=== PATIENT | male | born 1980 | race Caucasian/White ===

== ENCOUNTER 2017-10-05 21:41 | Emergency (ER) | END 2017-10-05 23:59 | disposition home or self-care (01) ==

== ENCOUNTER 2019-01-07 23:43 | Inpatient (IN) | payer OTHER ==
[~2019-01-07] VITALS: Ht 177.8 cm; Wt 64.6 kg
[~2019-01-07 23:43] MED LIST: AMOX500C2 PO; IBUP-1542 PO
[2019-01-08] VITALS (19 sets, daily range): BP systolic 93–111; BP diastolic 50–73; PULSE 75–95; RESP 13–20; Ht 177.8 cm; Wt 64.6 kg
[2019-01-08] MEDS ORDERED: morphine 4 MG/ML VIAL IV STA
[2019-01-08] MEDS ORDERED: ONDANSETRON 4 MG INJ IV STA
[2019-01-08] MEDS ORDERED: SOD CHLORIDE 0.9% 500 ML IV STA
[2019-01-08] MEDS ORDERED: SODIUM CHLORIDE 0.9% 1L BAG IV* STA (00:08)
[2019-01-08] MEDS ORDERED: PIPER-TAZO 3.375 GM IV (PMX) 100 ML IVPB STA (01:22)
[2019-01-08] MEDS ORDERED: VANCOMYCIN 1 GM (PMX) 250 ML IVPB STA (01:22)
[2019-01-08] MEDS ORDERED: HYDROmorphONE 1 MG/ML SYG IV STA (02:08)
[2019-01-08] MEDS ORDERED: HYDROmorphONE 1 MG/ML SYG ONE (02:09)
[2019-01-08] MEDS ORDERED: morphine 2 MG INJ IV PRN (03:00)
[2019-01-08] MEDS ORDERED: ONDANSETRON 4 MG INJ IV PRN ×3 (03:00→18:00)
--- NOTE | 2019-01-08 03:11 | HP ---
Date/Time of Note Date/Time of Note DATE: 01/08/19 TIME: 03:05 Assessment/Plan VTE Prophylaxis SCD applied (from Nsg): Yes Pharmacological prophylaxis: NA/contraindicated Pharm contraindication: low risk/ambulating Lines/Catheters IV Catheter Type (from Nrsg): Saline Lock Assessment/Plan Assessment/Plan 38 yo heroin addict presents with L hip abscess from intramuscular injection. #Left hip abscess - Will get CT pelvis to further characterize - Dr. Palafox consulted for surgical I&D. - IV vanco, zosyn - Followup blood cultures - NPO for possible surgery. - Patient reports ability to briskly climb 2 flights of stairs before his illness. No signs or symptoms of heart failure. He is medically optimized to proceed to surgery without further medical or cardiac workup. #Asthma - Albuterol prn #Heroin use - Patient is motivated to quit, social work consult after hip is addressed. DVT: SCDs GI: None Result Diagram: 01/08/19 0028 01/08/19 0028 HPI/ROS Admit Date/Time Admit Date/Time 08 January 2019 Hx of Present Illness Mr. Sabillon is an unfortunate 38 yo heroin addict who presents with left hip swelling and pain. He was in his usual state of health until about three weeks ago, when he was seen at the [facility] ED for bronchitis. He had been injecting heroin into his left gluteus for a few weeks prior and had noticed it was getting painful but declined to mention it. He was discharged with a course of amoxicillin for bronchitis of which he finished half the course. Over the past three weeks the hip grew more painful, swollen and it grew more difficult to walk. A few days prior to admission the patient used insulin syringes (which he uses for heroin) to aspirate pus from the abscess. He pulled out 150 cc. For the past three days that patient has been laying on the ground unable to walk due to pain; also with subjective fevers. He had an episode of fecal and urinary incontinence. He called an ambulance and came to the ED. In the ED he was afebrile, vitals normal. WBC 21.2, lactate 2.2. Otherwise labs normal . ROS He denies chills, night sweats, anorexia, weight loss, headache, dizziness, vertigo, dysphagia, cough, dyspnea, abdominal pain, diarrhea, constipation, dysuria, hematuria PMH/Family/Social Past Medical History Emphysema on albuterol inhaler Medications Current Medications Vancomycin HCl 250 ml @ 125 mls/hr ONCE STAT IVPB Last administered on 01/08/19at 02:33; Admin Dose 125 MLS/HR; Start 01/08/19 at 01:22; Stop 01/08/19 at 03:21 Coded Allergies: No Known Drug Allergies (Verified Allergy, Unknown, 10/05/17) Past Surgical History L hand surgery after trauma basilar skull fracture s/p repair Social History Alcohol Use: none Smoking Status: Current every day smoker (1-2 cigs per day ) Drug Use: heroin (Including intra-muscular injection. ) Exam/Review of Systems Vital Signs Vitals Vital Signs Date Temp Pulse Resp B/P (MAP) Pulse Ox O2 O2 Flow FiO2 Time Delivery Rate 01/08/19 98 20 109/68 98 Room Air 02:52 (82) 01/08/19 99.3 02:00 Exam Exam Gen: Well developed man appearing younger than stated age in considerable discomfort. Eyes: PERRL, no icterus HEENT: Moist mucous membranes, clear oropharynx Neck:Supple, no lymphadenopathy Card: Regular rate and rhythm, no murmurs Pulm: Clear to auscultation bilaterally, mild expiratory wheezing Abd: Soft, nontender, nondistended. No hepatosplenomegaly. Ext: L hip with very large erythematous, fluctuant, very tender region about 15x15 cm. There is a smaller region about 10x10 cm also with fluctuance and tenderness inferior, about on the L buttocks. R buttocks has an old crusted wound without fluctuance or tenderness. Skin: warm, dry, well perfused. : Good rectal tone. SHERIDAN STEWARD MD Jan 08, 2019 03:11
[2019-01-08] MEDS: SOD CHLORIDE 0.9% 1,000 ML IV SCH ×2 (03:27→15:54)
[2019-01-08] MEDS ORDERED: VANCOMYCIN IV PER PHARMACY XX SCH (03:30)
[2019-01-08] MEDS ORDERED: ALBUTEROL/IPRATROPIUM (NEB) 3 ML AMP HHN PRN (04:00)
[2019-01-08] MEDS: morphine 10 MG INJ IV PRN ×3 (05:47→13:57)
[2019-01-08] MEDS: PIPER-TAZO 3.375 GM IV (PMX) 100 ML IVPB SCH ×3 (05:48→20:37)
[2019-01-08] MEDS ORDERED: morphine 2 MG INJ IV STA (08:07)
--- NOTE | 2019-01-08 08:23 | CONS ---
Assessment/Plan Assessment/Plan Hospital Course (Demo Recall) This is a 38-year-old male with history of heroin abuse with a very large abscess over his left superior buttock starting to involve areas above the iliac crest. The patient clearly does need an irrigation debridement of this abscess. Currently there is no joint or bone involvement. I did speak to general surgery about this case and they will evaluate it as I believe the location of his abscess would be best treated by their expertise. We will be in further communication to determine the care of this patient. If the patient can tolerate a CT scan with and without contrast that may be helpful in further characterizing the abscess especially the depth. Patient should be kept n.p.o. Continue IV antibiotics vancomycin and Zosyn. Consultation Date/Type/Reason Admit Date/Time 08 January 2019 Date of Consultation: Jan 08, 2019 Reason for Consultation "Left Hip abscess" Date/Time of Note DATE: 01/08/19 TIME: 08:13 Hx of Present Illness This is a 38-year-old male with history of IV drug abuse. He presented to the emergency department at [facility] early this morning for increasing pain in his left buttock and side. He was found to have a very large abscess. Patient does admit to injecting heroin into his gluteus and flank. The symptoms started about 2 weeks ago and has significantly worsened in the last 5 to 6 days. He has had fevers and chills. Denies numbness and tingling. Denies any bowel or bladder incontinence. Denies any groin pain or pain in his hip with motion of his leg. The pain is isolated right over the abscess. The patient was started on vancomycin and Zosyn. Patient denies shortness of breath, chest pain, nausea/vomiting, constipation, diarrhea, numbness, and tingling. Past Medical History Anxiety/depression Home Meds Active Scripts Amoxicillin* (Amoxicillin*) 500 Mg Cap, 500 MG PO BID for 7 Days, CAP Prov:MARLEN MANDUJANO 10/05/17 Ibuprofen* (Motrin*) 600 Mg Tab, 600 MG PO Q6, #30 TAB Prov:MARLEN MANDUJANO 10/05/17 Medications Current Medications Sodium Chloride 1,000 ml @ 75 mls/hr [id number] IV Last administered on 01/08/19at 03:27; Admin Dose 75 MLS/HR; Start 01/08/19 at 02:34 IV Flush (NS 3 ml) 3 ml PER PROTOCOL IV ; Start 01/08/19 at 03:00 Ondansetron HCl (Zofran Inj) 4 mg Q6H PRN IV NAUSEA/VOMITING; Start 01/08/19 at 03:00 Morphine Sulfate (morphine) 2 mg Q4H PRN IV .SEVERE PAIN 7-10 Last administered on 01/08/19at 04:19; Admin Dose 2 MG; Start 01/08/19 at 03:00 Piperacillin Sod/ Tazobactam Sod 100 ml @ 200 mls/hr Q6 IVPB Last administered on 01/08/19at 05:48; Admin Dose 200 MLS/HR; Start 01/08/19 at 06:00 Vancomycin HCl (Vanco Iv Per Pharmacy) VANCOMYCIN PER PHARMACY PER PROTOCOL XX ; Start 01/08/19 at 03:30 Albuterol/ Ipratropium (Duoneb) 3 ml Q4H RESP THERAPY PRN HHN SHORTNESS OF B REATH; Start 01/08/19 at 04:00 Vancomycin HCl 1.25 gm/Sodium Chloride 250 ml @ 83.333 mls/ hr Q12H IVPB ; Start 01/08/19 at 14:00 Morphine Sulfate (morphine) 6 mg Q4H PRN IV SEVERE PAIN LEVEL 7-10 Last administered on 01/08/19at 05:47; Admin Dose 6 MG; Start 01/08/19 at 05:30 Allergies: Coded Allergies: No Known Drug Allergies (Verified Allergy, Unknown, 10/05/17) Past Surgical History Hand surgery 2004 Social History Alcohol Use: none Smoking Status: Current every day smoker (1-2 cigs per day ) Drug Use: heroin (Including intra-muscular injection. ) Exam/Review of Systems Exam Vitals Vital Signs Date Temp Pulse Resp B/P (MAP) Pulse Ox O2 O2 Flow FiO2 Time Delivery Rate 01/08/19 99.2 90 18 105/58 94 08:00 (74) 01/08/19 Room Air 02:52 Intake and Output 01/07/19 01/07/19 01/08/19 1515:00 23:00 07:00 IntakeIntake Total 463 ml OutputOutput Total 300 ml BalanceBalance 163 ml Exam General: Awake, alert, patient in moderate distress secondary to pain. Patient is cooperative. Heart: regular rhythm Lungs: breathing comfortably, no tachypnea or dyspnea Musculoskeletal: Over the left superior buttock going into the flank the patient has a very large subcutaneous and likely also intramuscular abscess. It is at least 15 cm. T here is no active drainage however there are purulent bulla over the abscess. There is significant erythema, warmth, tenderness to palpation. There is no hip or groin pain with range of motion of the hip. Remainder of the extremity shows no other signs of infection. Sensation intact to light touch in a sural, saphenous, deep peroneal, superficial peroneal, medial and lateral plantar nerve distribution. Motor is intact, patient able to dorsiflex and plantarflex ankle and extend and flex great toe. Dorsalis Pedis pulse +2, Brisk capillary refill. Compartments are soft. Calves non-tender to palpation bilaterally. Results Result Diagram: 01/08/19 0028 01/08/19 0028 Results 24hrs Laboratory Tests Test 01/08/19 00:20 01/08/19 00:28 01/08/19 02:20 01/08/19 04:20 POC Venous Lactate 2.2 *H White Blood Count 21.2 H Red Blood Count 4.84 Hemoglobin 14.8 Hematocrit 42.4 Mean Corpuscular Volume 87.6 Mean Corpuscular 30.6 Hemoglobin Mean Corpuscular 34.9 Hemoglobin Concent Red Cell Distribution 12.0 Width Platelet Count 453 H Mean Platelet Volume 8.3 Immature Granulocytes % 0.700 H Neutrophils % 86.9 H Lymphocytes % 5.6 L Monocytes % 6.5 Eosinophils % 0.0 Basophils % 0.3 Nucleated Red Blood 0.0 Cells % Immature Granulocytes # 0.140 H Neutrophils # 18.4 H Lymphocytes # 1.2 Monocytes # 1.4 H Eosinophils # 0.0 Basophils # 0.1 Nucleated Red Blood 0.0 Cells # Prothrombin Time 15.1 H Prothrombin Time Ratio 1.2 INR International 1.18 Normalized Ratio Activated 33.5 Partial Thromboplast Time Sodium Level 134 L Potassium Level 4.1 Chloride Level 90 L Carbon Dioxide Level 31 Anion Gap 13 Blood Urea Nitrogen 9 Creatinine 0.75 Est Glomerular Filtrat > 60 Rate mL/min Glucose Level 124 Calcium Level 9.7 Total Bilirubin 0.9 Direct Bilirubin 0.00 Indirect Bilirubin 0.9 Aspartate Amino 40 Transf (AST/SGOT) Alanine 37 Aminotransferase (ALT/SG PT) Alkaline Phosphatase 182 H Troponin I < 0.012 Total Protein 8.5 H Albumin 4.1 Globulin 4.40 H Albumin/Globulin Ratio 0.93 Lipase 59 Lactic Acid Level 1.0 2.6 *H Imaging Imaging 2 views of the left hip were obtained in the emergency department. Demonstrate significant soft tissue swelling of the left buttock with subcutaneous air at the level of iliac crest. No acute bony abnormality. No fracture. Medications Medication Current Medications Sodium Chloride 1,000 ml @ 75 mls/hr [id number] IV Last administered on 01/08/19at 03:27; Admin Dose 75 MLS/HR; Start 01/08/19 at 02:34 IV Flush (NS 3 ml) 3 ml PER PROTOCOL IV ; Start 01/08/19 at 03:00 Ondansetron HCl (Zofran Inj) 4 mg Q6H PRN IV NAUSEA/VOMITING; Start 01/08/19 at 03:00 Morphine Sulfate (morphine) 2 mg Q4H PRN IV .SEVERE PAIN 7-10 Last administered on 01/08/19at 04:19; Admin Dose 2 MG; Start 01/08/19 at 03:00 Piperacillin Sod/ Tazobactam Sod 100 ml @ 200 mls/hr Q6 IVPB Last administered on 01/08/19at 05:48; Admin Dose 200 MLS/HR; Start 01/08/19 at 06:00 Vancomycin HCl (Vanco Iv Per Pharmacy) VANCOMYCIN PER PHARMACY PER PROTOCOL XX ; Start 01/08/19 at 03:30 Albuterol/ Ipratropium (Duoneb) 3 ml Q4H RESP THERAPY PRN HHN SHORTNESS OF BREATH; Start 01/08/19 at 04:00 Vancomycin HCl 1.25 gm/Sodium Chloride 250 ml @ 83.333 mls/ hr Q12H IVPB ; Start 01/08/19 at 14:00 Morphine Sulfate (morphine) 6 mg Q4H PRN IV SEVERE PAIN LEVEL 7-10 Last administered on 01/08/19at 05:47; Admin Dose 6 MG; Start 01/08/19 at 05:30 EDU SILVA MD Jan 08, 2019 08:23
[2019-01-08] MEDS ORDERED: SOD CHLORIDE 0.9% 100 ML ONE (12:54)
[2019-01-08] MEDS ORDERED: IOHEXOL 300MG/ML 150 ML BTL ONE (12:54)
[2019-01-08] MEDS: VANCOMYCIN HCL 1.25 GM in SOD CHLORIDE 0.9% 250 ML IVPB SCH (13:59)
--- NOTE | 2019-01-08 14:35 | PN ---
Date/Time of Note Date/Time of Note DATE: 01/08/19 TIME: 14:34 Assessment/Plan VTE Prophylaxis Risk score (from Ns)>0 risk: 2 SCD applied (from Ns): Yes Pharmacological prophylaxis: NA/contraindicated Pharm contraindication: surgical contra Lines/Catheters IV [facility]ter Type (from [facility]): Peripheral IV Assessment/Plan Hospital Course 38 yo heroin addict presents with L hip abscess from intramuscular injection. #Left hip abscess - Will get CT pelvis to further characterize - Dr. Palafox and general surgery consulted for surgical I&D. - IV vanco, zosyn - Followup blood cultures - NPO for possible surgery. - Patient reports ability to briskly climb 2 flights of stairs before his illne ss. No signs or symptoms of heart failure. He is medically optimized to proceed to surgery without further medical or cardiac workup. #Asthma - Albuterol prn #Heroin use - Patient is motivated to quit, social work consult appreciated, patient will be placed in a drug rehab program after DC DVT: SCDs GI: None Result Diagram: 01/08/19 0028 01/08/19 0028 Results 24hrs Laboratory Tests Test 01/08/19 00:20 01/08/19 00:28 01/08/19 02:20 01/08/19 04:20 POC Venous Lactate 2.2 *H White Blood Count 21.2 H Red Blood Count 4.84 Hemoglobin 14.8 Hematocrit 42.4 Mean Corpuscular Volume 87.6 Mean Corpuscular 30.6 Hemoglobin Mean Corpuscular 34.9 Hemoglobin Concent Red Cell Distribution 12.0 Width Platelet Count 453 H Mean Platelet Volume 8.3 Immature Granulocytes % 0.700 H Neutrophils % 86.9 H Lymphocytes % 5.6 L Monocytes % 6.5 Eosinophils % 0.0 Basophils % 0.3 Nucleated Red Blood 0.0 Cells % Immature Granulocytes # 0.140 H Neutrophils # 18.4 H Lymphocytes # 1.2 Monocytes # 1.4 H Eosinophils # 0.0 Basophils # 0.1 Nucleated Red Blood 0.0 Cells # Prothrombin Time 15.1 H Prothrombin Time Ratio 1.2 INR International 1.18 Normalized Ratio Activated 33.5 Partial Thromboplast Time Sodium Level 134 L Potassium Level 4.1 Chloride Level 90 L Carbon Dioxide Level 31 Anion Gap 13 Blood Urea Nitrogen 9 Creatinine 0.75 Est Glomerular Filtrat > 60 Rate mL/min Glucose Level 124 Calcium Level 9.7 Total Bilirubin 0.9 Direct Bilirubin 0.00 Indirect Bilirubin 0.9 Aspartate Amino 40 Transf (AST/SGOT) Alanine 37 Aminotransferase (ALT/SG PT) Alkaline Phosphatase 182 H Troponin I < 0.012 Total Protein 8.5 H Albumin 4.1 Globulin 4.40 H Albumin/Globulin Ratio 0.93 Lipase 59 Lactic Acid Level 1.0 2.6 *H Subjective 24 Hr Interval Summary Constitutional: no complaints Exam/Review of Systems Exam Vitals Vital Signs Date Temp Pulse Resp B/P (MAP) Pulse Ox O2 O2 Flow FiO2 Time Delivery Rate 01/08/19 99.2 90 18 105/58 94 08:00 (74) 01/08/19 Room Air 02:52 Intake and Output 01/07/19 01/07/19 01/08/19 1515:00 23:00 07:00 IntakeIntake Total 463 ml OutputOutput Total 300 ml BalanceBalance 163 ml Constitutional: alert, oriented Respiratory: clear to auscultation Cardiovascular: regular rate and rhythm Gastrointestinal: soft; No distended Musculoskeletal: nl extremities to inspection Results Results 24hrs Laboratory Tests Test 01/08/19 00:20 01/08/19 00:28 01/08/19 02:20 01/08/19 04:20 POC Venous Lactate 2.2 *H White Blood Count 21.2 H Red Blood Count 4.84 Hemoglobin 14.8 Hematocrit 42.4 Mean Corpuscular Volume 87.6 Mean Corpuscular 30.6 Hemoglobin Mean Corpuscular 34.9 Hemoglobin Concent Red Cell Distribution 12.0 Width Platelet Count 453 H Mean Platelet Volume 8.3 Immature Granulocytes % 0.700 H Neutrophils % 86.9 H Lymphocytes % 5.6 L Monocytes % 6.5 Eosinophils % 0.0 Basophils % 0.3 Nucleated Red Blood 0.0 Cells % Immature Granulocytes # 0.140 H Neutrophils # 18.4 H Lymphocytes # 1.2 Monocytes # 1.4 H Eosinophils # 0.0 Basophils # 0.1 Nucleated Red Blood 0.0 Cells # Prothrombin Time 15.1 H Prothrombin Time Ratio 1.2 INR International 1.18 Normalized Ratio Activated 33.5 Partial Thromboplast Time Sodium Level 134 L Potassium Level 4.1 Chloride Level 90 L Carbon Dioxide Level 31 Anion Gap 13 Blood Urea Nitrogen 9 Creatinine 0.75 Est Glomerular Filtrat > 60 Rate mL/min Glucose Level 124 Calcium Level 9.7 Total Bilirubin 0.9 Direct Bilirubin 0.00 Indirect Bilirubin 0.9 Aspartate Amino 40 Transf (AST/SGOT) Alanine 37 Aminotransferase (ALT/SG PT) Alkaline Phosphatase 182 H Troponin I < 0.012 Total Protein 8.5 H Albumin 4.1 Globulin 4.40 H Albumin/Globulin Ratio 0.93 Lipase 59 Lactic Acid Level 1.0 2.6 *H Medications Medication Current Medications Sodium Chloride 1,000 ml @ 75 mls/hr [id number] IV Last administered on 01/08/19at 03:27; Admin Dose 75 MLS/HR; Start 01/08/19 at 02:34 IV Flush (NS 3 ml) 3 ml PER PROTOCOL IV ; Start 01/08/19 at 03:00 Ondansetron HCl (Zofran Inj) 4 mg Q6H PRN IV NAUSEA/VOMITING; Start 01/08/19 at 03:00 Morphine Sulfate (morphine) 2 mg Q4H PRN IV .SEVERE PAIN 7-10 Last administered on 01/08/19at 04:19; Admin Dose 2 MG; Start 01/08/19 at 03:00 Piperacillin Sod/ Tazobactam Sod 100 ml @ 200 mls/hr Q6 IVPB Last administered on 01/08/19at 13:09; Admin Dose 200 MLS/HR; Start 01/08/19 at 06:00 Vancomycin HCl (Vanco Iv Per Pharmacy) VANCOMYCIN PER PHARMACY PER PROTOCOL XX ; Start 01/08/19 at 03:30 Albuterol/ Ipratropium (Duoneb) 3 ml Q4H RESP THERAPY PRN HHN SHORTNESS OF BREATH; Start 01/08/19 at 04:00 Vancomycin HCl 1.25 gm/Sodium Chloride 250 ml @ 83.333 mls/ hr Q12H IVPB Last administered on 01/08/19at 13:59; Admin Dose 83.333 MLS/HR; Start 01/08/19 at 14:00 Morphine Sulfate (morphine) 6 mg Q4H PRN IV SEVERE PAIN LEVEL 7-10 Last administered on 01/08/19at 13:57; Admin Dose 6 MG; Start 01/08/19 at 05:30 Miscellaneous Information (*Rx Drug Level Order Reminder*) 1 1300 ONCE XX ; Start 01/09/19 at 13:00; Stop 01/09/19 at 13:01 TOM BAUTISTA Jan 08, 2019 14:35
--- NOTE | 2019-01-08 16:55 | CONS ---
Assessment/Plan Assessment/Plan Assessment/Plan (Daily) Left gluteal/buttock abscess Will need I&D in OR under IV sedation All benefits, risks, alternatives discussed in detail. All questions answered. The patient elects to proceed. Consultation Date/Type/Reason Admit Date/Time 08 January 2019 Date/Time of Note DATE: 01/08/19 TIME: 16:53 Hx of Present Illness The patient is a 38-year-old male who did intramuscular injection of heroin approximately 3 weeks ago. He likely is a dirty needle. He started developing pain and discomfort soon after. The pain and discomfort got worse over the last 4 days he could not walk due to the infection. He has fevers and chills. He has some nausea. Homeless and finally called an ambulance was brought to the ER. His work-up was consistent with a left buttock abscess. Past Medical History Medical History: other (IV drug abuse) Home Meds Active Scripts Amoxicillin* (Amoxicillin*) 500 Mg Cap, 500 MG PO BID for 7 Days, CAP Prov:MARLEN MANDUJANO 10/05/17 Ibuprofen* (Motrin*) 600 Mg Tab, 600 MG PO Q6, #30 TAB Prov:MARLEN MANDUJANO 10/05/17 Medications Current Medications Sodium Chloride 1,000 ml @ 75 mls/hr [id number] IV Last administered on 01/08/19at 03:27; Admin Dose 75 MLS/HR; Start 01/08/19 at 02:34 IV Flush (NS 3 ml) 3 ml PER PROTOCOL IV ; Start 01/08/19 at 03:00 Ondansetron HCl (Zofran Inj) 4 mg Q6H PRN IV NAUSEA/VOMITING; Start 01/08/19 at 03:00 Morphine Sulfate (morphine) 2 mg Q4H PRN IV .SEVERE PAIN 7-10 Last administered on 01/08/19at 04:19; Admin Dose 2 MG; Start 01/08/19 at 03:00 Piperacillin Sod/ Tazobactam Sod 100 ml @ 200 mls/hr Q6 IVPB Last administered on 01/08/19at 13:09; Admin Dose 200 MLS/HR; Start 01/08/19 at 06:00 Vancomycin HCl (Vanco Iv Per Pharmacy) VANCOMYCIN PER PHARMACY PER PROTOCOL XX ; Start 01/08/19 at 03:30 Albuterol/ Ipratropium (Duoneb) 3 ml Q4H RESP THERAPY PRN HHN SHORTNESS OF BREATH; Start 01/08/19 at 04:00 Vancomycin HCl 1.25 gm/Sodium Chloride 250 ml @ 83.333 mls/ hr Q12H IVPB Last administered on 01/08/19at 13:59; Admin Dose 83.333 MLS/HR; Start 01/08/19 at 14:00 Morphine Sulfate (morphine) 6 mg Q4H PRN IV SEVERE PAIN LEVEL 7-10 Last administered on 01/08/19at 13:57; Admin Dose 6 MG; Start 01/08/19 at 05:30 Miscellaneous Information (*Rx Drug Level Order Reminder*) 1 1300 ONCE XX ; Start 01/09/19 at 13:00; Stop 01/09/19 at 13:01 Allergies: Coded Allergies: No Known Drug Allergies (Verified Allergy, Unknown, 10/05/17) Past Surgical History Past Surgical Hx: other (Left hand surgery) Social History Alcohol Use: none Smoking Status: Current every day smoker (1-2 cigs per day ) Drug Use: heroin (Including intra-muscular injection. ), other (Methamphetamine twice a week) Exam/Review of Systems Exam Vitals Vital Signs Date Temp Pulse Resp B/P (MAP) Pulse Ox O2 O2 Flow FiO2 Time Delivery Rate 01/08/19 99.2 80 16 98/60 (73) 92 14:50 01/08/19 Room Air 02:52 Intake and Output 01/07/19 01/07/19 01/08/19 1515:00 23:00 07:00 IntakeIntake Total 463 ml OutputOutput Total 300 ml BalanceBalance 163 ml Constitutional: alert, oriented, well developed Psych: no complaints Head: normocephalic, atraumatic ENMT: nl external ears & nose Neck: supple Respiratory: clear to auscultation, normal air movement Cardiovascular: regular rate and rhythm Gastrointestinal: soft, nl liver, spleen, non-tender Musculoskeletal: nl extremities to inspection, nl gait and stance Extremities: normal pulses Neurological: [employer] II-XII intact, nl mental status Skin: other (Tender, erythematous, indurated area to left buttock/flank consistent with abscess) Lymph: nl lymph nodes Results Result Diagram: 01/08/19 0028 01/08/19 0028 Results 24hrs Laboratory Tests Test 01/08/19 00:20 01/08/19 00:28 01/08/19 02:20 01/08/19 04:20 POC Venous Lactate 2.2 *H White Blood Count 21.2 H Red Blood Count 4.84 Hemoglobin 14.8 Hematocrit 42.4 Mean Corpuscular Volume 87.6 Mean Corpuscular 30.6 Hemoglobin Mean Corpuscular 34.9 Hemoglobin Concent Red Cell Distribution 12.0 Width Platelet Count 453 H Mean Platelet Volume 8.3 Immature Granulocytes % 0.700 H Neutrophils % 86.9 H Lymphocytes % 5.6 L Monocytes % 6.5 Eosinophils % 0.0 Basophils % 0.3 Nucleated Red Blood 0.0 Cells % Immature Granulocytes # 0.140 H Neutrophils # 18.4 H Lymphocytes # 1.2 Monocytes # 1.4 H Eosinophils # 0.0 Basophils # 0.1 Nucleated Red Blood 0.0 Cells # Prothrombin Time 15.1 H Prothrombin Time Ratio 1.2 INR International 1.18 Normalized Ratio Activated 33.5 Partial Thromboplast Time Sodium Level 134 L Potassium Level 4.1 Chloride Level 90 L Carbon Dioxide Level 31 Anion Gap 13 Blood Urea Nitrogen 9 Creatinine 0.75 Est Glomerular Filtrat > 60 Rate mL/min Glucose Level 124 Calcium Level 9.7 Total Bilirubin 0.9 Direct Bilirubin 0.00 Indirect Bilirubin 0.9 Aspartate Amino 40 Transf (AST/SGOT) Alanine 37 Aminotransferase (ALT/SG PT) Alkaline Phosphatase 182 H Troponin I < 0.012 Total Protein 8.5 H Albumin 4.1 Globulin 4.40 H Albumin/Globulin Ratio 0.93 Lipase 59 Lactic Acid Level 1.0 2.6 *H Imaging Imaging Patient: DALLAS BUTLER : 1980 Age: 38 Sex: M MR #: [id number] DOS: 01/08/19 0305 Ordering MD: SHERIDAN STEWARD MD Location: [facility] Room/Bed: [facility] PROCEDURE: CT Abdomen and Pelvis with contrast. CLINICAL INDICATION: Left hip abscess TECHNIQUE: CT scan of the abdomen and pelvis with contrast was performed on a multi-detector high-resolution CT scanner. The patient was scanned following the uncomplicated intravenous administration of 90 cc of Omnipaque-300 IV contrast. Coronal and sagittal reformatted images were obtained from the axial source images. DICOM images are available. CTDI equals 6.76 mGy, and DLP equals 474.78 mGy-cm. One or more of the following dose reduction techniques were used: - Automated exposure control. - Adjustment of the mA and/or kV according to patient size. - Use of iterative reconstruction technique. COMPARISON: None. FINDINGS: Lower thorax: Patchy ground-glass opacities of the lateral right lower lung may represent atelectasis versus small area of infiltrate. Small focus of infiltrate seen in the left lower lung. Liver: Normal. Patent portal vein. Biliary: Normal gallbladder. No biliary dilatation. Pancreas: Normal. Spleen: Normal. Adrenal Glands: Normal. Genitourinary: No hydronephrosis or nephrolithiasis. Bladder is moderately distended, otherwise unremarkable. Gastrointestinal: Stomach is decompressed. Gaseous distension of the colon as well as multiple small bowel loops likely suggestive of ileus. No evidence of bowel obstruction. Lymph nodes: No adenopathy. Vascular: Normal-caliber of the abdominal aorta. Peritoneum/mesentery: Trace free pelvic fluid. Reproductive organs: Normal. Musculoskeletal: There is elongated walled off fluid collection with rim enhancement in the subcutaneous soft tissue overlying superior aspect of the left gluteal region measures 11.5 x 3.0 x 8.3 cm. Additional more complex walled off fluid collection with peripheral enhancement more distally measures 8.2 x 3.2 x 5.5 cm which likely extends to the adjacent gluteal muscles.. Subcutaneous air with likely skin laceration seen in the most lateral portion of the collection. Abdominal wall: Normal IMPRESSION: 1. There are 2 walled off fluid collections with peripheral enhancement in the subcutaneous soft tissue overlying left gluteal region measures 11.5 and 8.2 cm and likely represents an abscess. 2. Mild gaseous distension of the multiple loops of small and large bowel likely suggestive of mild ileus. 3. Patchy ground-glass opacities of the periphery of the right lower lobe as well as small area of left lung base likely due to atelectasis versus infectious/inflammatory process. RPTAT: QQ rm-anthony Bloom, Physician Date Time Medications Medication Current Medications Sodium Chloride 1,000 ml @ 75 mls/hr [id number] IV Last administered on 01/08/19 03:27; Admin Dose 75 MLS/HR; Start 01/08/19 at 02:34 IV Flush (NS 3 ml) 3 ml PER PROTOCOL IV ; Start 01/08/19 at 03:00 Ondansetron HCl (Zofran Inj) 4 mg Q6H PRN IV NAUSEA/VOMITING; Start 01/08/19 at 03:00 Morphine Sulfate (morphine) 2 mg Q4H PRN IV .SEVERE PAIN 7-10 Last administered on 01/08/19at 04:19; Admin Dose 2 MG; Start 01/08/19 at 03:00 Piperacillin Sod/ Tazobactam Sod 100 ml @ 200 mls/hr Q6 IVPB Last administered on 01/08/19at 13:09; Admin Dose 200 MLS/HR; Start 01/08/19 at 06:00 Vancomycin HCl (Vanco Iv Per Pharmacy) VANCOMYCIN PER PHARMACY PER PROTOCOL XX ; Start 01/08/19 at 03:30 Albuterol/ Ipratropium (Duoneb) 3 ml Q4H RESP THERAPY PRN HHN SHORTNESS OF BREATH; Start 01/08/19 at 04:00 Vancomycin HCl 1.25 gm/Sodium Chloride 250 ml @ 83.333 mls/ hr Q12H IVPB Last administered on 01/08/19at 13:59; Admin Dose 83.333 MLS/HR; Start 01/08/19 at 14:00 Morphine Sulfate (morphine) 6 mg Q4H PRN IV SEVERE PAIN LEVEL 7-10 Last administered on 01/08/19at 13:57; Admin Dose 6 MG; Start 01/08/19 at 05:30 Miscellaneous Information (*Rx Drug Level Order Reminder*) 1 1300 ONCE XX ; Start 01/09/19 at 13:00; Stop 01/09/19 at 13:01 DIANA MOLINA MD Jan 08, 2019 16:55
--- NOTE | 2019-01-08 17:00 | PREAC ---
Date/Time of Note Date/Time of Note DATE: 01/08/19 TIME: 16:58 Anesthesia Eval and Record Evaluation Time Pre-Procedure Interview DATE: 01/08/19 TIME: 16:58 Age 38 Sex male NPO: 8 hrs Preoperative diagnosis L hip abscess Planned procedure I & D of left hip Past Medical History Past Medical History: Includes Pulm: Smoking Hx, Asthma, Other (emphysema) Recreational drugs: Other (heroin used 4 days ago) Surgery & Anesthesia Issues No known issue Meds Anticoagulation: No Beta Sha within 24 hr: No Reason Beta Sha not given: Pt. not on B-Sha Active Scripts Amoxicillin* (Amoxicillin*) 500 Mg Cap, 500 MG PO BID for 7 Days, CAP Prov:JULIUS MANDUJANONA C 10/05/17 Ibuprofen* (Motrin*) 600 Mg Tab, 600 MG PO Q6, #30 TAB Prov:NAZIAMARLEN C 10/05/17 Current Medications Sodium Chloride 1,000 ml @ 75 mls/hr [id number] IV Last administered on 01/08/19at 03:27; Admin Dose 75 MLS/HR; Start 01/08/19 at 02:34 IV Flush (NS 3 ml) 3 ml PER PROTOCOL IV ; Start 01/08/19 at 03:00 Ondansetron HCl (Zofran Inj) 4 mg Q6H PRN IV NAUSEA/VOMITING; Start 01/08/19 at 03:00 Morphine Sulfate (morphine) 2 mg Q4H PRN IV .SEVERE PAIN 7-10 Last administered on 01/08/19at 04:19; Admin Dose 2 MG; Start 01/08/19 at 03:00 Piperacillin Sod/ Tazobactam Sod 100 ml @ 200 mls/hr Q6 IVPB Last administered on 01/08/19at 13:09; Admin Dose 200 MLS/HR; Start 01/08/19 at 06:00 Vancomycin HCl (Vanco Iv Per Pharmacy) VANCOMYCIN PER PHARMACY PER PROTOCOL XX ; Start 01/08/19 at 03:30 Albuterol/ Ipratropium (Duoneb) 3 ml Q4H RESP THERAPY PRN HHN SHORTNESS OF BREATH; Start 01/08/19 at 04:00 Vancomycin HCl 1.25 gm/Sodium Chloride 250 ml @ 83.333 mls/ hr Q12H IVPB Last administered on 6/3/19at 13:59; Admin Dose 83.333 MLS/HR; Start 01/08/19 at 14:00 Morphine Sulfate (morphine) 6 mg Q4H PRN IV SEVERE PAIN LEVEL 7-10 Last administered on 01/08/19at 13:57; Admin Dose 6 MG; Start 01/08/19 at 05:30 Miscellaneous Information (*Rx Drug Level Order Reminder*) 1 1300 ONCE XX ; Start 01/09/19 at 13:00; Stop 01/09/19 at 13:01 Meds reviewed: Yes Allergies Coded Allergies: No Known Drug Allergies (Verified Allergy, Unknown, 10/05/17) Allergies Reviewed: Yes Labs/Studies Labs Reviewed: Reviewed by anesthesiologist Result Diagram: 01/08/19 0028 01/08/19 0028 Laboratory Tests 01/08/19 00:28 test: N/A Pre-procedure Exam Last vitals Vital Signs Date Temp Pulse Resp B/P (MAP) Pulse Ox O2 O2 Flow FiO2 Time Delivery Rate 01/08/19 99.2 80 16 98/60 (73) 92 14:50 01/08/19 Room Air 02:52 Airway: Adequate thyromental dist Mallampati: Mallampati II Teeth: Normal Lung: Normal Heart: Normal ASA Physical Status ASA physical status: 3 Emergency: None Pre-operative Attestations Prior to commencing anesthesia and surgery, the patient was re-evaluated, there was verification of: *The patient's identity *The results of appropriate recent lab work and preoperative vital signs *The above evaluation not changing prior to induction *Anesthetic plan, risk benefits, alternative and complications discussed with p atient/family; questions answered; patient/family understands, accepts and wishes to proceed. COLE HALL Jan 08, 2019 17:00
[2019-01-08] MEDS ORDERED: MIDAZOLAM 1 MG/ML 2 ML INJ ONE (17:50)
[2019-01-08] MEDS ORDERED: DEXAMETHASONE 4 MG/ML 5 ML INJ ONE (17:50)
[2019-01-08] MEDS ORDERED: CEFAZOLIN 1 GM INJ ONE (17:50)
[2019-01-08] MEDS ORDERED: ROCURONIUM 50 MG INJ ONE (17:50)
[2019-01-08] MEDS ORDERED: ONDANSETRON 4 MG INJ ONE (17:50)
[2019-01-08] MEDS ORDERED: FENTAnyl 50 MCG/ML VIAL ONE (17:50)
[2019-01-08] MEDS ORDERED: GLYCOPYRROLATE 0.4 MG INJ ONE (17:50)
[2019-01-08] MEDS ORDERED: NEOSTIGMINE 3 MG/3 ML SYRINGE ONE (17:50)
[2019-01-08] MEDS ORDERED: PROPOFOL 20 ML ONE (17:50)
--- NOTE | 2019-01-08 17:54 | OPR ---
Date/Time of Note Date/Time of Note DATE: 01/08/19 TIME: 17:52 Operative Report Preoperative Diagnosis Left gluteal abscess Postoperative Diagnosis Same Operation/Procedure Performed Incision and drainage of left gluteal abscess Surgeon see signature line Card Doffer None Anesthesia Type: general Anesthesiologist: Jonathan Vazquez M.D. Estimated Blood Loss: minimal Transfusion none Specimen Cultures Grafts/Implants none Complications none Pt Condition Post Procedure: stable Disposition: PACU Indications The patient is a 38-year-old IV drug abuser. He injected heroin into his left buttock 3 weeks ago. He developed a large abscess. He requires incision and drainage. All benefits, risks, alternatives were discussed in detail. All questions answered. The patient elects to proceed. Procedure Description The patient was brought to operative room placed in the right lateral decubitus position. IV sedation was given. The left buttocks, flank and leg were cleaned, prepped, draped in usual sterile fashion. The area was widely infiltrated with half percent Marcaine. A cruciate incision was made over the abscess. Pus was expressed. Cultures were taken. The all loculations were broken up. The wound was irrigated copiously. The wound was then packed with a Kerlix. A dry sterile dressing was applied. Postop procedure well, was extubated the OR, transferred to the recovery in stable condition. DIANA OMLINA MD Jan 08, 2019 17:54
[2019-01-08] MEDS ORDERED: MEPERIDINE 25 MG INJ IV PRN (18:00)
[2019-01-08] MEDS ORDERED: TRIMETHOBENZAMIDE 100 MG/ML VIAL IM PRN (18:00)
[2019-01-08] MEDS ORDERED: EPHEDrine 25 MG/5 ML SYG IV PRN (18:00)
[2019-01-08] MEDS ORDERED: DIPHENHYDRAMINE 50 MG INJ IV PRN (18:00)
[2019-01-08] MEDS ORDERED: IPRATROPIUM (NEB) 0.5 MG/2.5 ML AMP HHN PRN (18:00)
[2019-01-08] MEDS ORDERED: OXYCODONE/ACETAMINOPHEN (5/325) TAB PO PRN ×2 (18:00)
[2019-01-08] MEDS ORDERED: hydrALAzine 20 MG INJ IV PRN (18:00)
[2019-01-08] MEDS ORDERED: MIDAZOLAM 1 MG/ML 2 ML INJ IV PRN (18:00)
[2019-01-08] MEDS ORDERED: ALBUTEROL 0.083% (NEB) 2.5 MG/3 ML AMP HHN PRN (18:00)
[2019-01-08] MEDS ORDERED: LABETALOL HCL 20MG INJ IV PRN (18:00)
[2019-01-08] MEDS ORDERED: HYDROmorphONE 1 MG/5 ML IV SYRINGE IV PRN ×3 (18:00)
[2019-01-08] MEDS ORDERED: DESFLURANE 15 MIN ONE (18:00)
[2019-01-08] MEDS ORDERED: FENTAnyl 50 MCG/ML VIAL IV PRN ×3 (18:00)
[2019-01-08] MEDS ORDERED: ACETAMINOPHEN 325 MG TAB PO PRN (18:00)
--- NOTE | 2019-01-08 18:32 | PAC ---
Date/Time of Note Date/Time of Note DATE: 01/08/19 TIME: 18:32 Post-Anesthesia Notes Post-Anesthesia Note Last documented vital signs Vital Signs Date Temp Pulse Resp B/P (MAP) Pulse Ox O2 O2 Flow FiO2 Time Delivery Rate 01/08/19 99.2 80 16 98/60 (73) 92 14:50 01/08/19 Room Air 02:52 Activity: WNL Respiratory function: WNL Cardiovascular function: WNL Mental status: Baseline Pain reasonably controlled: Yes Hydration appropriate: Yes Nausea/Vomiting absent: Yes Jonathan Vazquez M.D. Jan 08, 2019 18:32
[2019-01-08] MEDS: D5-NS + KCL 20 MEQ 1,000 ML IV SCH (20:37)
[2019-01-09] MEDS: PIPER-TAZO 3.375 GM IV (PMX) 100 ML IVPB SCH ×4 (00:38→17:54)
[2019-01-09] MEDS: morphine 2 MG INJ IV PRN ×9 (00:39→23:10)
[2019-01-09 01:46] VITALS: BP 112/68; PULSE 92; RESP 18
[2019-01-09] MEDS: VANCOMYCIN HCL 1.25 GM in SOD CHLORIDE 0.9% 250 ML IVPB SCH ×2 (02:40→14:17)
[2019-01-09] MEDS: ENOXAPARIN 40 MG/0.4 ML SYG SC SCH (06:06)
[2019-01-09] MEDS: D5-NS + KCL 20 MEQ 1,000 ML IV SCH ×3 (06:09→20:21)
[2019-01-09 08:08] VITALS: BP 94/53; PULSE 97; RESP 20
--- NOTE | 2019-01-09 14:04 | PN ---
Date/Time of Note Date/Time of Note DATE: 01/09/19 TIME: 14:01 Assessment/Plan VTE Prophylaxis Risk score (from Ns)>0 risk: 2 SCD applied (from Ns): Yes Pharmacological prophylaxis: NA/contraindicated Pharm contraindication: low risk/ambulating Lines/Catheters IV [facility] (from [facility]): Peripheral IV Assessment/Plan Hospital Course 38 yo heroin addict presents with L hip abscess from intramuscular injection. #Left hip abscess -CT is consistent with abscess -Status post surgical drainage with surgery - IV vanco, zosyn - Followup cultures -ID consultation obtained -Wound care #Asthma - Albuterol prn #Heroin use - Patient is motivated to quit, social work consult appreciated, patient will be placed in a drug rehab program after DC DVT: SCDs GI: None DC planning: Anticipate DC to drug rehab program in the coming days Result Diagram: 01/09/19 0505 01/09/19 0505 Results 24hrs Laboratory Tests Test 01/09/19 05:05 White Blood Count 14.1 #H Red Blood Count 3.66 #L Hemoglobin 11.0 #L Hematocrit 33.2 #L Mean Corpuscular Volume 90.7 Mean Corpuscular Hemoglobin 30.1 Mean Corpuscular Hemoglobin Concent 33.1 Red Cell Distribution Width 12.7 Platelet Count 413 Mean Platelet Volume 8.5 Immature Granulocytes % 0.600 H Neutrophils % 78.7 H Lymphocytes % 11.1 L Monocytes % 8.9 Eosinophils % 0.4 Basophils % 0.3 Nucleated Red Blood Cells % 0.0 Immature Granulocytes # 0.090 H Neutrophils # 11.1 H Lymphocytes # 1.6 Monocytes # 1.3 H Eosinophils # 0.1 Basophils # 0.0 Nucleated Red Blood Cells # 0.0 Sodium Level 136 Potassium Level 3.9 Chloride Level 99 Carbon Dioxide Level 29 Anion Gap 8 Blood Urea Nitrogen 14 Creatinine 0.88 Est Glomerular Filtrat Rate mL/min > 60 Glucose Level 86 Hemoglobin A1c 5.7 Calcium Level 7.8 L Phosphorus Level 3.8 Magnesium Level 1.8 Total Bilirubin 0.3 Direct Bilirubin 0.00 Indirect Bilirubin 0.3 Aspartate Amino Transf (AST/SGOT) 27 Alanine Aminotransferase (ALT/SGPT) 27 Alkaline Phosphatase 96 Total Protein 5.8 #L Albumin 2.7 #L Globulin 3.10 Albumin/Globulin Ratio 0.87 Thyroid Stimulating Hormone (TSH) 0.541 Subjective 24 Hr Interval Summary Musculoskeletal: bone/joint pain Exam/Review of Systems Exam Vitals Vital Signs Date Temp Pulse Resp B/P (MAP) Pulse Ox O2 O2 Flow FiO2 Time Delivery Rate 01/09/19 98.0 97 20 94/53 (67) 97 08:08 01/08/19 Room Air 19:52 01/08/19 6.0 18:37 Intake and Output 01/08/19 01/08/19 01/09/19 1515:00 23:00 07:00 IntakeIntake Total 100 ml 1767 ml 2570 ml OutputOutput Total 665 ml 1550 ml BalanceBalance 100 ml 1102 ml 1020 ml Constitutional: alert, oriented Respiratory: clear to auscultation Cardiovascular: regular rate and rhythm Gastrointestinal: soft; No distended Musculoskeletal: nl extremities to inspection Results Results 24hrs Laboratory Tests Test 01/09/19 05:05 White Blood Count 14.1 #H Red Blood Count 3.66 #L Hemoglobin 11.0 #L Hematocrit 33.2 #L Mean Corpuscular Volume 90.7 Mean Corpuscular Hemoglobin 30.1 Mean Corpuscular Hemoglobin Concent 33.1 Red Cell Distribution Width 12.7 Platelet Count 413 Mean Platelet Volume 8.5 Immature Granulocytes % 0.600 H Neutrophils % 78.7 H Lymphocytes % 11.1 L Monocytes % 8.9 Eosinophils % 0.4 Basophils % 0.3 Nucleated Red Blood Cells % 0.0 Immature Granulocytes # 0.090 H Neutrophils # 11.1 H Lymphocytes # 1.6 Monocytes # 1.3 H Eosinophils # 0.1 Basophils # 0.0 Nucleated Red Blood Cells # 0.0 Sodium Level 136 Potassium Level 3.9 Chloride Level 99 Carbon Dioxide Level 29 Anion Gap 8 Blood Urea Nitrogen 14 Creatinine 0.88 Est Glomerular Filtrat Rate mL/min > 60 Glucose Level 86 Hemoglobin A1c 5.7 Calcium Level 7.8 L Phosphorus Level 3.8 Magnesium Level 1.8 Total Bilirubin 0.3 Direct Bilirubin 0.00 Indirect Bilirubin 0.3 Aspartate Amino Transf (AST/SGOT) 27 Alanine Aminotransferase (ALT/SGPT) 27 Alkaline Phosphatase 96 Total Protein 5.8 #L Albumin 2.7 #L Globulin 3.10 Albumin/Globulin Ratio 0.87 Thyroid Stimulating Hormone (TSH) 0.541 Medications Medication Current Medications IV Flush (NS 3 ml) 3 ml PER PROTOCOL IV ; Start 6/3/19 at 03:00 Piperacillin Sod/ Tazobactam Sod 100 ml @ 200 mls/hr Q6 IVPB Last administered on 01/09/19at 12:38; Admin Dose 200 MLS/HR; Start 01/08/19 at 06:00 Vancomycin HCl (Vanco Iv Per Pharmacy) VANCOMYCIN PER PHARMACY PER PROTOCOL XX ; Start 01/08/19 at 03:30 Albuterol/ Ipratropium (Duoneb) 3 ml Q4H RESP THERAPY PRN HHN SHORTNESS OF BREATH; Start 01/08/19 at 04:00 Vancomycin HCl 1.25 gm/Sodium Chloride 250 ml @ 83.333 mls/ hr Q12H IVPB Last administered on 01/09/19at 02:40; Admin Dose 83.333 MLS/HR; Start 01/08/19 at 14:00 Morphine Sulfate (morphine) 2 mg Q2H PRN IV PAIN LEVEL 6-10 Last administered on 01/09/19at 12:39; Admin Dose 2 MG; Start 01/08/19 at 18:00 Acetaminophen/ Hydrocodone Bitart ([place] (10/325)) 1 tab Q6H PRN PO PAIN; Start 01/08/19 at 18:00 Acetaminophen (Tylenol Tab) 650 mg Q6H PRN PO MILD PAIN(1-3)OR ELEVATED TEMP; Start 01/08/19 at 18:00 Ondansetron HCl (Zofran Inj) 4 mg Q6H PRN IV NAUSEA AND/OR VOMITING; Start 01/08/19 at 18:00 Potassium Chloride/Dextrose/ Sod Cl 1,000 ml @ 75 mls/hr [id number] IV Last administered on 01/08/19at 20:37; Admin Dose 75 MLS/HR; Start 01/08/19 at 17:41 Enoxaparin Sodium (Lovenox) 40 mg DAILY@07 SC Last administered on 01/09/19 06:06; Admin Dose 40 MG; Start 01/09/19 at 07:00 TOM BAUTISTA Jan 09, 2019 14:04
[2019-01-09 14:29] VITALS: BP 108/62; PULSE 89; RESP 16
--- NOTE | 2019-01-09 16:21 | PN ---
Date/Time of Note Date/Time of Note DATE: 01/09/19 TIME: 16:20 Assessment/Plan Lines/Catheters IV Catheter Type (from Nrsg): Peripheral IV Assessment/Plan Assessment/Plan Postop day #1 status I&D of left gluteal abscess WBC resolving Improving Subjective 24 Hr Interval Summary Subjective hx not possible: other (Detoxing from heroin) Constitutional: improved Feeding: advancing diet Pain Control: moderate Exam/Review of Systems Vital Signs Vitals Vital Signs Date Temp Pulse Resp B/P (MAP) Pulse Ox O2 O2 Flow FiO2 Time Delivery Rate 01/09/19 98.4 89 16 108/62 97 14:29 (77) 01/08/19 Room Air 19:52 01/08/19 6.0 18:37 Intake and Output 01/08/19 01/08/19 01/09/19 1515:00 23:00 07:00 IntakeIntake Total 100 ml 1767 ml 2570 ml OutputOutput Total 665 ml 1550 ml BalanceBalance 100 ml 1102 ml 1020 ml Exam Constitutional: alert, oriented, well developed Additional Comments Wound -dressing intact. Change this morning. Results Result Diagram: 01/09/19 0505 01/09/19 0505 DIANA MOLINA MD Jan 09, 2019 16:21
--- NOTE | 2019-01-09 17:30 | CONS ---
DATE OF ADMISSION: 01/08/2019 DATE OF CONSULTATION: 01/09/2019 TYPE OF CONSULTATION: Infectious disease. REASON FOR CONSULTATION: Antibiotic management. HISTORY OF PRESENT ILLNESS: Chace Sabillon is a 38-year-old male who was admitted on 01/08/2019. Arturo ambrocio has a history of heroin addiction and presents with left hip abscess from intramuscular injection. He was in his usual state of health until 3 weeks ago when he was seen at [facility] for bronch itis. He had been injecting heroin into his left gluteus for a few weeks prior to his admission and noted was getting painful but declined to mention it. He was discharged on amoxicillin for bronchiti s and finished after course. Over the last 3 weeks, his hip is growing more painful. The patient us ed insulin syringes to aspirate pus from the abscess. He pulled out 150 mL. Over past 3 days, he ashley s been lying on the ground, unable to walk due to the pain. He had an episode of fecal and urinary i ncontinence, called an ambulance and came to the emergency room. His white count was 21.2, H and H 1 4.8 and 42.8, platelet count 453,000. BUN and creatinine is 9/0.75. Glucose was 124. PAST MEDICAL HISTORY: Positive for emphysema. He is on albuterol inhaler. PAST SURGICAL HISTORY: Left hand surgery after trauma had a basilar skull fracture, status post repa ir. FAMILY HISTORY: Noncontributory. SOCIAL HISTORY: He is a current every day smoker, 1 to 2 cigarettes per day. He is a heroin abuser including intramuscular injections. He does not drink. HOSPITAL COURSE: The patient was started on vancomycin and Zosyn. He was seen by Dr. Thomas who noted very large abscess over his left superior buttocks starting to involve the areas iliac crest. A CT scan of the abdomen and pelvis showed 2 walled off fluid collections with peripheral enhancement in t he subcutaneous soft tissues overlying left gluteal region measuring 11.5 and 8.2 cm, likely represen t an abscess, mild gaseous distention of multiple loops of small and large bowel likely suggestive of mild ileus, patchy ground glass opacities of the periphery of the right lower lobe as well as small areas of left lung base likely due to atelectasis versus an infectious or inflammatory process. He w as seen by Dr. Matt and on 01/08/2019, he underwent incision and drainage of a left gluteal abscess which was drained and packed. Pus was expressed. Cultures were taken. All the loculations were br oken up. Wound was irrigated and then packed with Kerlix. The wound culture has no growth after 1 d ay. The patient is currently on vancomycin and Zosyn. PHYSICAL EXAMINATION: GENERAL: He is alert, responsive, in no acute distress. VITAL SIGNS: Stable. He is afebrile. SKIN: Without generalized rash. HEENT: Within normal limits. NECK: Supple. LYMPH NODES: None palpable. CHEST: Decreased breath sounds at the bases. HEART: Without murmur or gallop. ABDOMEN: Soft, nontender without organosplenomegaly or masses. EXTREMITIES: Left hip is bandaged at this point. Right lower extremity without cyanosis, clubbing o r edema. RECTAL AND GENITAL: Deferred. NEUROLOGIC: No focal neurological abnormality. IMPRESSION AND PLAN: The patient is a 38-year-old heroin addict status post drainage of a left hip a bscess secondary to intramuscular injection of heroin. We will continue him on vancomycin and Zosyn until we get the culture and sensitivities. I will dictate my findings to the hospitalist and also t o the aforementioned consults. Dictated By: TENNILLE JOE MD, JD/NTS Conf#: [id number] DID#: [id number] CC: TOM BAUTISTA MD; SHERIDAN STEWARD MD; EDU SILVA MD;*End*
[2019-01-09] MEDS: HYDROCODONE/APAP (10/325) TAB PO PRN (18:18)
[2019-01-09] MEDS: LORAZEPAM 2 MG INJ IV PRN (18:40)
[2019-01-09 19:49] VITALS: BP 112/59; PULSE 99; RESP 18
[2019-01-09] MEDS: VANCOMYCIN 1 GM 250 ML IVPB SCH (21:04)
[2019-01-10] MEDS: LORAZEPAM 2 MG INJ IV PRN ×4 (00:36→22:59)
[2019-01-10] MEDS: PIPER-TAZO 3.375 GM IV (PMX) 100 ML IVPB SCH ×4 (00:36→18:14)
[2019-01-10 01:42] VITALS: BP 117/74; PULSE 98; RESP 18
[2019-01-10] MEDS: morphine 2 MG INJ IV PRN ×5 (02:52→17:00)
[2019-01-10] MEDS: VANCOMYCIN 1 GM 250 ML IVPB SCH ×3 (06:09→22:06)
[2019-01-10] MEDS: ENOXAPARIN 40 MG/0.4 ML SYG SC SCH (06:13)
[2019-01-10 08:14] VITALS: BP 120/79; PULSE 100; RESP 19
[2019-01-10] MEDS ORDERED: POTASSIUM CHLORIDE (SR) 20 MEQ TAB PO STA (12:11)
--- NOTE | 2019-01-10 14:46 | PN ---
Date/Time of Note Date/Time of Note DATE: 01/10/19 TIME: 14:45 Assessment/Plan VTE Prophylaxis Risk score (from Nsg)>0 risk: 0 Pharmacological prophylaxis: NA/contraindicated Pharm contraindication: low risk/ambulating Lines/Catheters IV Catheter Type (from Nrsg): Peripheral IV Urinary Cath still in place: No Assessment/Plan Hospital Course 38 yo heroin addict presents with L hip abscess from intramuscular injection. #Left hip abscess -CT is consistent with abscess -Status post surgical drainage with surgery - IV vanco, zosyn -Wound culture currently growing staph -ID consultation appreciated -Wound care #Asthma - Albuterol prn #Heroin use - Patient is motivated to quit, social work consult appreciated, patient will be placed in a drug rehab program after DC DVT: SCDs GI: None DC planning: Family requesting placement in a drug rehab program but patient cannot be excepted with current wounds, possible jail placement Result Diagram: 01/10/19 0456 01/10/19 0456 Results 24hrs Laboratory Tests Test 01/10/19 04:56 White Blood Count 14.9 H Red Blood Count 3.64 L Hemoglobin 11.2 L Hematocrit 33.0 L Mean Corpuscular Volume 90.7 Mean Corpuscular Hemoglobin 30.8 Mean Corpuscular Hemoglobin Concent 33.9 Red Cell Distribution Width 12.2 Platelet Count 415 Mean Platelet Volume 8.4 Immature Granulocytes % 0.700 H Neutrophils % 75.8 Lymphocytes % 11.0 L Monocytes % 10.5 Eosinophils % 1.5 Basophils % 0.5 Nucleated Red Blood Cells % 0.0 Immature Granulocytes # 0.110 H Neutrophils # 11.3 H Lymphocytes # 1.6 Monocytes # 1.6 H Eosinophils # 0.2 Basophils # 0.1 Nucleated Red Blood Cells # 0.0 Sodium Level 139 Potassium Level 3.3 L Chloride Level 105 Carbon Dioxide Level 28 Anion Gap 6 Blood Urea Nitrogen 7 Creatinine 0.63 Est Glomerular Filtrat Rate mL/min > 60 Glucose Level 99 Calcium Level 8.1 L Magnesium Level 2.0 Subjective 24 Hr Interval Summary Constitutional: no complaints Exam/Review of Systems Exam Vitals Vital Signs Date Temp Pulse Resp B/P (MAP) Pulse Ox O2 O2 Flow FiO2 Time Delivery Rate 01/10/19 99.0 100 19 120/79 98 Room Air 08:14 (93) 01/08/19 6.0 18:37 Intake and Output 01/09/19 01/09/19 01/10/19 1515:00 23:00 07:00 IntakeIntake Total 1460 ml 2270 ml 1090 ml OutputOutput Total 2800 ml 900 ml 3000 ml BalanceBalance -1340 ml 1370 ml -1910 ml Constitutional: alert, oriented Respiratory: clear to auscultation Cardiovascular: regular rate and rhythm Gastrointestinal: soft; No distended Musculoskeletal: nl extremities to inspection Results Results 24hrs Laboratory Tests Test 01/10/19 04:56 White Blood Count 14.9 H Red Blood Count 3.64 L Hemoglobin 11.2 L Hematocrit 33.0 L Mean Corpuscular Volume 90.7 Mean Corpuscular Hemoglobin 30.8 Mean Corpuscular Hemoglobin Concent 33.9 Red Cell Distribution Width 12.2 Platelet Count 415 Mean Platelet Volume 8.4 Immature Granulocytes % 0.700 H Neutrophils % 75.8 Lymphocytes % 11.0 L Monocytes % 10.5 Eosinophils % 1.5 Basophils % 0.5 Nucleated Red Blood Cells % 0.0 Immature Granulocytes # 0.110 H Neutrophils # 11.3 H Lymphocytes # 1.6 Monocytes # 1.6 H Eosinophils # 0.2 Basophils # 0.1 Nucleated Red Blood Cells # 0.0 Sodium Level 139 Potassium Level 3.3 L Chloride Level 105 Carbon Dioxide Level 28 Anion Gap 6 Blood Urea Nitrogen 7 Creatinine 0.63 Est Glomerular Filtrat Rate mL/min > 60 Glucose Level 99 Calcium Level 8.1 L Magnesium Level 2.0 Medications Medication Current Medications IV Flush (NS 3 ml) 3 ml PER PROTOCOL IV ; Start 01/08/19 at 03:00 Piperacillin Sod/ Tazobactam Sod 100 ml @ 200 mls/hr Q6 IVPB Last administered on 01/10/19at 13:42; Admin Dose 200 MLS/HR; Start 01/08/19 at 06:00 Vancomycin HCl (Vanco Iv Per Pharmacy) VANCOMYCIN PER PHARMACY PER PROTOCOL XX ; Start 01/08/19 at 03:30 Albuterol/ Ipratropium (Duoneb) 3 ml Q4H RESP THERAPY PRN HHN SHORTNESS OF BREATH; Start 01/08/19 at 04:00 Morphine Sulfate (morphine) 2 mg Q2H PRN IV PAIN LEVEL 6-10 Last administered on 01/10/19at 13:42; Admin Dose 2 MG; Start 01/08/19 at 18:00 Acetaminophen/ Hydrocodone Bitart ([place] (10/325)) 1 tab Q6H PRN PO PAIN Last administered on 01/09/19 18:18; Admin Dose 1 TAB; Start 01/08/19 at 18:00 Acetaminophen (Tylenol Tab) 650 mg Q6H PRN PO MILD PAIN(1-3)OR ELEVATED TEMP; Start 01/08/19 at 18:00 Ondansetron HCl (Zofran Inj) 4 mg Q6H PRN IV NAUSEA AND/OR VOMITING; Start 01/08/19 at 18:00 Potassium Chloride/Dextrose/ Sod Cl 1,000 ml @ 75 mls/hr [id number] IV Last administered on 01/09/19 18:20; Admin Dose 75 MLS/HR; Start 01/08/19 at 17:41 Enoxaparin Sodium (Lovenox) 40 mg DAILY@07 SC Last administered on 01/10/19 06:13; Admin Dose 40 MG; Start 01/09/19 at 07:00 Vancomycin HCl 250 ml @ 125 mls/hr Q8H IVPB Last administered on 01/10/19 06:09; Admin Dose 125 MLS/HR; Start 01/09/19 at 22:00 Lorazepam (Ativan) 1 mg Q6H PRN IV ANXIETY Last administered on 01/10/19 06:36; Admin Dose 1 MG; Start 01/09/19 at 18:30 TOM BAUTISTA Jan 10, 2019 14:46
[2019-01-10] MEDS: D5-NS + KCL 20 MEQ 1,000 ML IV SCH ×2 (14:48→23:01)
[2019-01-10 15:01] VITALS: BP 119/71; PULSE 102; RESP 19
--- NOTE | 2019-01-10 16:25 | CONS ---
Assessment/Plan Assessment/Plan Hospital Course (Demo Recall) Patient is sleeping in no distress no fevers overnight. WBC 14.9 neutrophils 75.8 BUN 7 creatinine 0.63 Left buttock wound culture preliminary growing staph aureus Antimicrobials: Vanco Zosyn PHYSICAL EXAMINATION: GENERAL: He is alert, responsive, in no acute distress. SKIN: Without generalized rash. HEENT: Within normal limits. NECK: Supple. LYMPH NODES: None palpable. CHEST: Decreased breath sounds at the bases. HEART: Without murmur or gallop. ABDOMEN: Soft, nontender without organosplenomegaly or masses. EXTREMITIES: Left hip is bandaged at this point. Right lower extremity without cyanosis, clubbing or edema. Assessment: 1. Left hip abscess, status post I&D 2. Systemic inflammatory response syndrome 3. Heroine abuse Plan: Remains stable, continue antibiotics, await for final cultures, will be likely discharged on oral Bactrim or clindamycin Consultation Date/Type/Reason Admit Date/Time Jan 08, 2019 at 02:21 Initial Consult Date 01/08/19 Type of Consult id Date/Time of Note DATE: 01/10/19 TIME: 16:22 Exam/Review of Systems Exam Vitals Vital Signs Date Temp Pulse Resp B/P (MAP) Pulse Ox O2 O2 Flow FiO2 Time Delivery Rate 01/10/19 98.5 102 19 119/71 98 Room Air 15:01 (87) 01/08/19 6.0 18:37 Intake and Output 01/09/19 01/09/19 01/10/19 1515:00 23:00 07:00 IntakeIntake Total 1460 ml 2270 ml 1090 ml OutputOutput Total 2800 ml 900 ml 3000 ml BalanceBalance -1340 ml 1370 ml -1910 ml Results Result Diagram: 01/10/19 0456 01/10/19 0456 Results 24hrs Laboratory Tests Test 01/10/19 04:56 White Blood Count 14.9 H Red Blood Count 3.64 L Hemoglobin 11.2 L Hematocrit 33.0 L Mean Corpuscular Volume 90.7 Mean Corpuscular Hemoglobin 30.8 Mean Corpuscular Hemoglobin Concent 33.9 Red Cell Distribution Width 12.2 Platelet Count 415 Mean Platelet Volume 8.4 Immature Granulocytes % 0.700 H Neutrophils % 75.8 Lymphocytes % 11.0 L Monocytes % 10.5 Eosinophils % 1.5 Basophils % 0.5 Nucleated Red Blood Cells % 0.0 Immature Granulocytes # 0.110 H Neutrophils # 11.3 H Lymphocytes # 1.6 Monocytes # 1.6 H Eosinophils # 0.2 Basophils # 0.1 Nucleated Red Blood Cells # 0.0 Sodium Level 139 Potassium Level 3.3 L Chloride Level 105 Carbon Dioxide Level 28 Anion Gap 6 Blood Urea Nitrogen 7 Creatinine 0.63 Est Glomerular Filtrat Rate mL/min > 60 Glucose Level 99 Calcium Level 8.1 L Magnesium Level 2.0 Medications Medication Current Medications IV Flush (NS 3 ml) 3 ml PER PROTOCOL IV ; Start 01/08/19 at 03:00 Piperacillin Sod/ Tazobactam Sod 100 ml @ 200 mls/hr Q6 IVPB Last administered on 01/10/19 13:42; Admin Dose 200 MLS/HR; Start 01/08/19 at 06:00 Vancomycin HCl (Vanco Iv Per Pharmacy) VANCOMYCIN PER PHARMACY PER PROTOCOL XX ; Start 01/08/19 at 03:30 Albuterol/ Ipratropium (Duoneb) 3 ml Q4H RESP THERAPY PRN HHN SHORTNESS OF BREATH; Start 01/08/19 at 04:00 Morphine Sulfate (morphine) 2 mg Q2H PRN IV PAIN LEVEL 6-10 Last administered on 01/10/19 13:42; Admin Dose 2 MG; Start 01/08/19 at 18:00 Acetaminophen/ Hydrocodone Bitart ([place] (10/325)) 1 tab Q6H PRN PO PAIN Last administered on 01/09/19 18:18; Admin Dose 1 TAB; Start 01/08/19 at 18:00 Acetaminophen (Tylenol Tab) 650 mg Q6H PRN PO MILD PAIN(1-3)OR ELEVATED TEMP; Start 01/08/19 at 18:00 Ondansetron HCl (Zofran Inj) 4 mg Q6H PRN IV NAUSEA AND/OR VOMITING; Start 01/08/19 at 18:00 Potassium Chloride/Dextrose/ Sod Cl 1,000 ml @ 75 mls/hr [id number] IV Last administered on 01/10/19 14:48; Admin Dose 75 MLS/HR; Start 01/08/19 at 17:41 Enoxaparin Sodium (Lovenox) 40 mg DAILY@07 SC Last administered on 6/5/19at 06:13; Admin Dose 40 MG; Start 01/09/19 at 07:00 Vancomycin HCl 250 ml @ 125 mls/hr Q8H IVPB Last administered on 01/10/19at 14:48; Admin Dose 125 MLS/HR; Start 01/09/19 at 22:00 Lorazepam (Ativan) 1 mg Q6H PRN IV ANXIETY Last administered on 01/10/19at 14:57; Admin Dose 1 MG; Start 01/09/19 at 18:30 Miscellaneous Information (*Rx Drug Level Order Reminder*) VANCO TR 01/10 AT 2100 2100 ONCE XX ; Start 01/10/19 at 21:00; Stop 01/10/19 at 21:01 CARLOS GALINDO NP Jan 10, 2019 16:25
[2019-01-10 19:32] VITALS: BP_SYST 125; BP_SYST 148; BP_DIAS 69; BP_DIAS 79; PULSE 104; PULSE 79; RESP 19
[2019-01-10] MEDS: HYDROCODONE/APAP (10/325) TAB PO PRN (20:24)
[2019-01-11] MEDS: PIPER-TAZO 3.375 GM IV (PMX) 100 ML IVPB SCH ×3 (00:33→12:37)
[2019-01-11 01:14] VITALS: BP 104/63; PULSE 101; RESP 18
[2019-01-11] MEDS: morphine 2 MG INJ IV PRN ×4 (04:33→21:46)
[2019-01-11] MEDS: LORAZEPAM 2 MG INJ IV PRN ×3 (05:56→23:53)
[2019-01-11] MEDS ORDERED: VANCOMYCIN HCL 1.25 GM in SOD CHLORIDE 0.9% 250 ML IVPB SCH (06:00)
[2019-01-11] MEDS: ENOXAPARIN 40 MG/0.4 ML SYG SC SCH (06:27)
[2019-01-11] MEDS: HYDROCODONE/APAP (10/325) TAB PO PRN ×2 (07:42→18:21)
[2019-01-11 08:29] VITALS: BP 110/63; PULSE 95; RESP 18
[2019-01-11 13:43] VITALS: BP 99/61; PULSE 103; RESP 18
--- NOTE | 2019-01-11 13:47 | CONS ---
Assessment/Plan Assessment/Plan Hospital Course (Demo Recall) Patient is sleeping no fevers overnight WBC 17.3 platelets 428 neutrophils 78.8 BUN 3 creatinine 0.65 Wound culture grew oxacillin sensitive staph aureus Antimicrobials: Vanco Zosyn PHYSICAL EXAMINATION: GENERAL: He is alert, responsive, in no acute distress. SKIN: Without generalized rash. HEENT: Within normal limits. NECK: Supple. LYMPH NODES: None palpable. CHEST: Decreased breath sounds at the bases. HEART: Without murmur or gallop. ABDOMEN: Soft, nontender without organosplenomegaly or masses. Assessment: 1. Systemic inflammatory response syndrome 2. Community-acquired pneumonia 3. Left hip abscess, status post I&D 4. Heroine abuse Plan: Clinically unchanged, stable, change antibiotics to oral Levaquin and Ancef, follow chest x-ray Consultation Date/Type/Reason Admit Date/Time Jan 08, 2019 at 02:21 Initial Consult Date 01/08/19 Type of Consult id Date/Time of Note DATE: 01/11/19 TIME: 13:46 Exam/Review of Systems Exam Vitals Vital Signs Date Temp Pulse Resp B/P (MAP) Pulse Ox O2 O2 Flow FiO2 Time Delivery Rate 01/11/19 99.3 103 18 99/61 (74) 98 Room Air 13:43 01/08/19 6.0 18:37 Intake and Output 01/10/19 01/10/19 01/11/19 1515:00 23:00 07:00 IntakeIntake Total 1440 ml 2090 ml 850 ml OutputOutput Total 2050 ml 2550 ml 1700 ml BalanceBalance -610 ml -460 ml -850 ml Results Result Diagram: 01/11/19 0501 01/11/19 0501 Results 24hrs Laboratory Tests Test 01/10/19 21:06 01/11/19 05:01 Vancomycin Level Trough 9.4 L White Blood Count 17.3 H Red Blood Count 3.65 L Hemoglobin 10.8 L Hematocrit 32.5 L Mean Corpuscular Volume 89.0 Mean Corpuscular Hemoglobin 29.6 Mean Corpuscular Hemoglobin Concent 33.2 Red Cell Distribution Width 12.4 Platelet Count 428 H Mean Platelet Volume 8.2 Immature Granulocytes % 1.100 H Neutrophils % 78.8 H Lymphocytes % 8.9 L Monocytes % 9.5 Eosinophils % 1.4 Basophils % 0.3 Nucleated Red Blood Cells % 0.0 Immature Granulocytes # 0.190 H Neutrophils # 13.7 H Lymphocytes # 1.5 Monocytes # 1.6 H Eosinophils # 0.2 Basophils # 0.1 Nucleated Red Blood Cells # 0.0 Sodium Level 138 Potassium Level 3.7 Chloride Level 106 Carbon Dioxide Level 25 Anion Gap 7 Blood Urea Nitrogen 3 L Creatinine 0.65 Est Glomerular Filtrat Rate mL/min > 60 Glucose Level 109 Calcium Level 8.2 L Medications Medication Current Medications IV Flush (NS 3 ml) 3 ml PER PROTOCOL IV ; Start 01/08/19 at 03:00 Piperacillin Sod/ Tazobactam Sod 100 ml @ 200 mls/hr Q6 IVPB Last administered on 01/11/19 12:37; Admin Dose 200 MLS/HR; Start 01/08/19 at 06:00 Vancomycin HCl (Vanco Iv Per Pharmacy) VANCOMYCIN PER PHARMACY PER PROTOCOL XX ; Start 01/08/19 at 03:30 Albuterol/ Ipratropium (Duoneb) 3 ml Q4H RESP THERAPY PRN HHN SHORTNESS OF BREATH; Start 01/08/19 at 04:00 Morphine Sulfate (morphine) 2 mg Q2H PRN IV PAIN LEVEL 6-10 Last administered on 01/11/19 12:40; Admin Dose 2 MG; Start 01/08/19 at 18:00 Acetaminophen/ Hydrocodone Bitart ([place] (10/325)) 1 tab Q6H PRN PO PAIN Last administered on 01/11/19 07:42; Admin Dose 1 TAB; Start 01/08/19 at 18:00 Acetaminophen (Tylenol Tab) 650 mg Q6H PRN PO MILD PAIN(1-3)OR ELEVATED TEMP; Start 01/08/19 at 18:00 Ondansetron HCl (Zofran Inj) 4 mg Q6H PRN IV NAUSEA AND/OR VOMITING; Start 01/08/19 at 18:00 Potassium Chloride/Dextrose/ Sod Cl 1,000 ml @ 75 mls/hr [id number] IV Last administered on 01/10/19at 14:48; Admin Dose 75 MLS/HR; Start 01/08/19 at 17:41 Enoxaparin Sodium (Lovenox) 40 mg DAILY@07 SC Last administered on 01/11/19 06 :27; Admin Dose 40 MG; Start 01/09/19 at 07:00 Lorazepam (Ativan) 1 mg Q6H PRN IV ANXIETY Last administered on 01/11/19at 05:56; Admin Dose 1 MG; Start 01/09/19 at 18:30 Vancomycin HCl 1.25 gm/Sodium Chloride 250 ml @ 83.333 mls/ hr Q8H IVPB Last administered on 01/11/19at 06:21; Admin Dose 83.333 MLS/HR; Start 01/11/19 at 06:00 CARLOS GALINDO NP Jan 11, 2019 13:47
[2019-01-11] MEDS ORDERED: LEVOFLOXACIN 750 MG TABLET PO SCH (14:30)
--- NOTE | 2019-01-11 14:50 | PN ---
Date/Time of Note Date/Time of Note DATE: 01/11/19 TIME: 14:49 Assessment/Plan VTE Prophylaxis Risk score (from Ns)>0 risk: 3 SCD applied (from Ns): Yes Pharmacological prophylaxis: NA/contraindicated Pharm contraindication: low risk/ambulating Lines/Catheters IV [facility] Type ([facility] Peripheral IV Urinary Cath still in place: No Assessment/Plan Hospital Course 38 yo heroin addict presents with L hip abscess from intramuscular injection. #Sepsis secondary to left hip abscess -CT is consistent with abscess -Status post surgical drainage with surgery - IV vanco, zosyn -Wound culture currently growing staph -ID consultation appreciated -Wound care #Asthma - Albuterol prn #Heroin use - Patient is motivated to quit, social work consult appreciated, patient will be placed in a drug rehab program after DC DVT: SCDs GI: None DC planning: Family requesting placement in a drug rehab program but patient cannot be accepted with current wounds, possible care home placement Result Diagram: 01/11/19 0501 01/11/19 0501 Results 24hrs Laboratory Tests Test 01/10/19 21:06 01/11/19 05:01 Vancomycin Level Trough 9.4 L White Blood Count 17.3 H Red Blood Count 3.65 L Hemoglobin 10.8 L Hematocrit 32.5 L Mean Corpuscular Volume 89.0 Mean Corpuscular Hemoglobin 29.6 Mean Corpuscular Hemoglobin Concent 33.2 Red Cell Distribution Width 12.4 Platelet Count 428 H Mean Platelet Volume 8.2 Immature Granulocytes % 1.100 H Neutrophils % 78.8 H Lymphocytes % 8.9 L Monocytes % 9.5 Eosinophils % 1.4 Basophils % 0.3 Nucleated Red Blood Cells % 0.0 Immature Granulocytes # 0.190 H Neutrophils # 13.7 H Lymphocytes # 1.5 Monocytes # 1.6 H Eosinophils # 0.2 Basophils # 0.1 Nucleated Red Blood Cells # 0.0 Sodium Level 138 Potassium Level 3.7 Chloride Level 106 Carbon Dioxide Level 25 Anion Gap 7 Blood Urea Nitrogen 3 L Creatinine 0.65 Est Glomerular Filtrat Rate mL/min > 60 Glucose Level 109 Calcium Level 8.2 L Subjective 24 Hr Interval Summary Constitutional: no complaints Exam/Review of Systems Exam Vitals Vital Signs Date Temp Pulse Resp B/P (MAP) Pulse Ox O2 O2 Flow FiO2 Time Delivery Rate 01/11/19 99.3 103 18 99/61 (74) 98 Room Air 13:43 01/08/19 6.0 18:37 Intake and Output 01/10/19 01/10/19 01/11/19 1515:00 23:00 07:00 IntakeIntake Total 1440 ml 2090 ml 850 ml OutputOutput Total 2050 ml 2550 ml 1700 ml BalanceBalance -610 ml -460 ml -850 ml Constitutional: alert Respiratory: clear to auscultation Cardiovascular: regular rate and rhythm Gastrointestinal: soft; No distended Musculoskeletal: nl extremities to inspection Results Results 24hrs Laboratory Tests Test 01/10/19 21:06 01/11/19 05:01 Vancomycin Level Trough 9.4 L White Blood Count 17.3 H Red Blood Count 3.65 L Hemoglobin 10.8 L Hematocrit 32.5 L Mean Corpuscular Volume 89.0 Mean Corpuscular Hemoglobin 29.6 Mean Corpuscular Hemoglobin Concent 33.2 Red Cell Distribution Width 12.4 Platelet Count 428 H Mean Platelet Volume 8.2 Immature Granulocytes % 1.100 H Neutrophils % 78.8 H Lymphocytes % 8.9 L Monocytes % 9.5 Eosinophils % 1.4 Basophils % 0.3 Nucleated Red Blood Cells % 0.0 Immature Granulocytes # 0.190 H Neutrophils # 13.7 H Lymphocytes # 1.5 Monocytes # 1.6 H Eosinophils # 0.2 Basophils # 0.1 Nucleated Red Blood Cells # 0.0 Sodium Level 138 Potassium Level 3.7 Chloride Level 106 Carbon Dioxide Level 25 Anion Gap 7 Blood Urea Nitrogen 3 L Creatinine 0.65 Est Glomerular Filtrat Rate mL/min > 60 Glucose Level 109 Calcium Level 8.2 L Medications Medication Current Medications IV Flush (NS 3 ml) 3 ml PER PROTOCOL IV ; Start 01/08/19 at 03:00 Albuterol/ Ipratropium (Duoneb) 3 ml Q4H RESP THERAPY PRN HHN SHORTNESS OF BREATH; Start 01/08/19 at 04:00 Morphine Sulfate (morphine) 2 mg Q2H PRN IV PAIN LEVEL 6-10 Last administered on 01/11/19at 12:40; Admin Dose 2 MG; Start 01/08/19 at 18:00 Acetaminophen/ Hydrocodone Bitart ([place] (10/325)) 1 tab Q6H PRN PO PAIN Last administered on 01/11/19at 07:42; Admin Dose 1 TAB; Start 01/08/19 at 18:00 Acetaminophen (Tylenol Tab) 650 mg Q6H PRN PO MILD PAIN(1-3)OR ELEVATED TEMP; Start 01/08/19 at 18:00 Ondansetron HCl (Zofran Inj) 4 mg Q6H PRN IV NAUSEA AND/OR VOMITING; Start 01/08/19 at 18:00 Potassium Chloride/Dextrose/ Sod Cl 1,000 ml @ 75 mls/hr [id number] IV Last administered on 01/10/19at 14:48; Admin Dose 75 MLS/HR; Start 01/08/19 at 17:41 Enoxaparin Sodium (Lovenox) 40 mg DAILY@07 SC Last administered on 01/11/19at 06:27; Admin Dose 40 MG; Start 01/09/19 at 07:00 Lorazepam (Ativan) 1 mg Q6H PRN IV ANXIETY Last administered on 01/11/19at 05:56; Admin Dose 1 MG; Start 01/09/19 at 18:30 Cefazolin Sodium 50 ml @ 100 mls/hr Q6 IVPB ; Start 01/11/19 at 18:00 Levofloxacin (Levaquin) 750 mg DAILY@06 PO ; Start 01/12/19 at 06:00 TOM BAUTISTA Jan 11, 2019 14:50
[2019-01-11] MEDS: CEFAZOLIN 1 GM/50 ML (PMX) 50 ML IVPB SCH ×2 (18:15→23:53)
[2019-01-11 20:24] VITALS: BP 111/62; PULSE 102; RESP 18
[2019-01-12] MEDS: morphine 2 MG INJ IV PRN ×6 (01:18→22:17)
[2019-01-12 01:30] VITALS: BP 104/60; PULSE 103; RESP 19
[2019-01-12] MEDS: HYDROCODONE/APAP (10/325) TAB PO PRN ×2 (03:43→20:48)
[2019-01-12] MEDS: LEVOFLOXACIN 750 MG TABLET PO SCH (06:16)
[2019-01-12] MEDS: CEFAZOLIN 1 GM/50 ML (PMX) 50 ML IVPB SCH ×4 (06:16→23:57)
[2019-01-12] MEDS: ENOXAPARIN 40 MG/0.4 ML SYG SC SCH (06:22)
[2019-01-12 08:10] VITALS: BP 96/56; PULSE 96; RESP 20
[2019-01-12] MEDS: NACL 0.9% 3 ML SYG IV SCH (08:32)
[2019-01-12] MEDS: LORAZEPAM 2 MG INJ IV PRN ×3 (11:43→23:57)
--- NOTE | 2019-01-12 14:21 | PN ---
Date/Time of Note Date/Time of Note DATE: 01/12/19 TIME: 14:20 Assessment/Plan VTE Prophylaxis Risk score (from Ns)>0 risk: 1 SCD applied (from Ns): Yes Pharmacological prophylaxis: NA/contraindicated Pharm contraindication: low risk/ambulating Lines/Catheters IV Catheter Type (from Nrs): Saline Lock Urinary Cath still in place: No Assessment/Plan Hospital Course 38 yo heroin addict presents with L hip abscess from intramuscular injection. #Sepsis secondary to left hip abscess -CT is consistent with abscess -Status post surgical drainage with surgery - IV vanco, zosyn -Wound culture currently growing staph -ID consultation appreciated -Wound care #Asthma - Albuterol prn #Heroin use - Patient is motivated to quit, social work consult appreciated, patient will be placed in a drug rehab program after DC DVT: SCDs GI: None DC planning: Family requesting placement in a drug rehab program but patient cannot be accepted with current wounds, possible [facility] placement Result Diagram: 01/12/19 0440 01/11/19 0501 Results 24hrs Laboratory Tests Test 01/12/19 04:40 White Blood Count 14.6 H Red Blood Count 3.43 L Hemoglobin 10.5 L Hematocrit 31.4 L Mean Corpuscular Volume 91.5 Mean Corpuscular Hemoglobin 30.6 Mean Corpuscular Hemoglobin Concent 33.4 Red Cell Distribution Width 12.8 Platelet Count 395 Mean Platelet Volume 8.2 Immature Granulocytes % 1.100 H Neutrophils % 76.2 Lymphocytes % 12.3 L Monocytes % 8.6 Eosinophils % 1.4 Basophils % 0.4 Nucleated Red Blood Cells % 0.0 Immature Granulocytes # 0.160 H Neutrophils # 11.1 H Lymphocytes # 1.8 Monocytes # 1.3 H Eosinophils # 0.2 Basophils # 0.1 Nucleated Red Blood Cells # 0.0 Subjective 24 Hr Interval Summary Constitutional: no complaints Exam/Review of Systems Exam Vitals Vital Signs Date Temp Pulse Resp B/P (MAP) Pulse Ox O2 O2 Flow FiO2 Time Delivery Rate 01/12/19 98.9 96 20 96/56 (69) 97 08:10 01/11/19 Room Air 13:43 01/08/19 6.0 18:37 Intake and Output 01/11/19 01/11/19 01/12/19 1515:00 23:00 07:00 IntakeIntake Total 1070 ml 810 ml 100 ml OutputOutput Total 400 ml 300 ml BalanceBalance 670 ml 810 ml -200 ml Constitutional: alert, oriented Respiratory: clear to auscultation Cardiovascular: regular rate and rhythm Gastrointestinal: soft; No distended Musculoskeletal: nl extremities to inspection Results Results 24hrs Laboratory Tests Test 01/12/19 04:40 White Blood Count 14.6 H Red Blood Count 3.43 L Hemoglobin 10.5 L Hematocrit 31.4 L Mean Corpuscular Volume 91.5 Mean Corpuscular Hemoglobin 30.6 Mean Corpuscular Hemoglobin Concent 33.4 Red Cell Distribution Width 12.8 Platelet Count 395 Mean Platelet Volume 8.2 Immature Granulocytes % 1.100 H Neutrophils % 76.2 Lymphocytes % 12.3 L Monocytes % 8.6 Eosinophils % 1.4 Basophils % 0.4 Nucleated Red Blood Cells % 0.0 Immature Granulocytes # 0.160 H Neutrophils # 11.1 H Lymphocytes # 1.8 Monocytes # 1.3 H Eosinophils # 0.2 Basophils # 0.1 Nucleated Red Blood Cells # 0.0 Medications Medication Current Medications IV Flush (NS 3 ml) 3 ml PER PROTOCOL IV Last administered on 01/12/19at 08:32; Admin Dose 3 ML; Start 01/08/19 at 03:00 Albuterol/ Ipratropium (Duoneb) 3 ml Q4H RESP THERAPY PRN HHN SHORTNESS OF B REATH; Start 01/08/19 at 04:00 Morphine Sulfate (morphine) 2 mg Q2H PRN IV PAIN LEVEL 6-10 Last administered on 01/12/19at 10:35; Admin Dose 2 MG; Start 01/08/19 at 18:00 Acetaminophen/ Hydrocodone Bitart ([place] (10/325)) 1 tab Q6H PRN PO PAIN Last administered on 01/12/19at 03:43; Admin Dose 1 TAB; Start 01/08/19 at 18:00 Acetaminophen (Tylenol Tab) 650 mg Q6H PRN PO MILD PAIN(1-3)OR ELEVATED TEMP; Start 01/08/19 at 18:00 Ondansetron HCl (Zofran Inj) 4 mg Q6H PRN IV NAUSEA AND/OR VOMITING; Start at 18:00 Enoxaparin Sodium (Lovenox) 40 mg DAILY@07 SC Last administered on 01/12/19 06:22; Admin Dose 40 MG; Start 01/09/19 at 07:00 Lorazepam (Ativan) 1 mg Q6H PRN IV ANXIETY Last administered on 01/12/19 11:43; Admin Dose 1 MG; Start 01/09/19 at 18:30 Cefazolin Sodium 50 ml @ 100 mls/hr Q6 IVPB Last administered on 01/12/19 11:43; Admin Dose 100 MLS/HR; Start 01/11/19 at 18:00 Levofloxacin (Levaquin) 750 mg DAILY@06 PO Last administered on 01/12/19 06:16; Admin Dose 750 MG; Start 01/12/19 at 06:00 TOM BAUTISTA Jan 12, 2019 14:21
[2019-01-12 15:11] VITALS: BP 125/70; PULSE 95; RESP 20
--- NOTE | 2019-01-12 18:04 | CONS ---
Assessment/Plan Assessment/Plan Hospital Course (Demo Recall) 1200 Patient is alert feels better looks comfortable no fevers overnight T-max 100.1 WBC 14.6 platelets 395 no shift no bands BUN 3 creatinine 0.65 Antimicrobials: Levaquin Ancef Chest x-ray this morning revealed no acute pulmonary abnormality Microbiology: Blood cultures remain negative, left hip wound culture grew oxacillin sensitive staph aureus Antimicrobials: Vanco Zosyn PHYSICAL EXAMINATION: GENERAL: He is alert, responsive, in no acute distress. SKIN: Without generalized rash. HEENT: Within normal limits. NECK: Supple. LYMPH NODES: None palpable. CHEST: Decreased breath sounds at the bases. HEART: Without murmur or gallop. ABDOMEN: Soft, nontender without organosplenomegaly or masses. Assessment: 1. Systemic inflammatory response syndrome 2. Community-acquired pneumonia 3. Left hip abscess, status post I&D 4. Heroine abuse Plan: Patient is improving, continue present care and antibiotics, local wound care per surgical and nursing team, anticipate discharge on oral Keflex and Levaquin Consultation Date/Type/Reason Admit Date/Time Jan 08, 2019 at 02:21 Initial Consult Date 01/08/19 Type of Consult id Date/Time of Note DATE: 01/12/19 TIME: 18:02 Exam/Review of Systems Exam Vitals Vital Signs Date Temp Pulse Resp B/P (MAP) Pulse Ox O2 O2 Flow FiO2 Time Delivery Rate 01/12/19 99.4 95 20 125/70 100 15:11 (88) 01/11/19 Room Air 13:43 01/08/19 6.0 18:37 Intake and Output 01/11/19 01/11/19 01/12/19 1515:00 23:00 07:00 IntakeIntake Total 1070 ml 810 ml 100 ml OutputOutput Total 400 ml 300 ml BalanceBalance 670 ml 810 ml -200 ml Results Result Diagram: 01/12/19 0440 01/11/19 0501 Results 24hrs Laboratory Tests Test 01/12/19 04:40 White Blood Count 14.6 H Red Blood Count 3.43 L Hemoglobin 10.5 L Hematocrit 31.4 L Mean Corpuscular Volume 91.5 Mean Corpuscular Hemoglobin 30.6 Mean Corpuscular Hemoglobin Concent 33.4 Red Cell Distribution Width 12.8 Platelet Count 395 Mean Platelet Volume 8.2 Immature Granulocytes % 1.100 H Neutrophils % 76.2 Lymphocytes % 12.3 L Monocytes % 8.6 Eosinophils % 1.4 Basophils % 0.4 Nucleated Red Blood Cells % 0.0 Immature Granulocytes # 0.160 H Neutrophils # 11.1 H Lymphocytes # 1.8 Monocytes # 1.3 H Eosinophils # 0.2 Basophils # 0.1 Nucleated Red Blood Cells # 0.0 Medications Medication Current Medications IV Flush (NS 3 ml) 3 ml PER PROTOCOL IV Last administered on 01/12/19 08:32; Admin Dose 3 ML; Start 01/08/19 at 03:00 Albuterol/ Ipratropium (Duoneb) 3 ml Q4H RESP THERAPY PRN HHN SHORTNESS OF USMAN TH; Start 01/08/19 at 04:00 Acetaminophen/ Hydrocodone Bitart ([place] (10/325)) 1 tab Q6H PRN PO PAIN Last administered on 01/12/19 03:43; Admin Dose 1 TAB; Start 01/08/19 at 18:00 Acetaminophen (Tylenol Tab) 650 mg Q6H PRN PO MILD PAIN(1-3)OR ELEVATED TEMP; Start 01/08/19 at 18:00 Ondansetron HCl (Zofran Inj) 4 mg Q6H PRN IV NAUSEA AND/OR VOMITING; Start 01/08/19 at 18:00 Enoxaparin Sodium (Lovenox) 40 mg DAILY@07 SC Last administered on 01/12/19 06:22; Admin Dose 40 MG; Start 01/09/19 at 07:00 Lorazepam (Ativan) 1 mg Q6H PRN IV ANXIETY Last administered on 01/12/19 17:52; Admin Dose 1 MG; Start 01/09/19 at 18:30 Cefazolin Sodium 50 ml @ 100 mls/hr Q6 IVPB Last administered on 01/12/19 17:3 8; Admin Dose 100 MLS/HR; Start 01/11/19 at 18:00 Levofloxacin (Levaquin) 750 mg DAILY@06 PO Last administered on 01/12/19 06:16; Admin Dose 750 MG; Start 01/12/19 at 06:00 Morphine Sulfate (morphine) 2 mg Q3 PRN IV PAIN LEVEL 6-10 Last administered on 01/12/19 16:00; Admin Dose 2 MG; Start 01/12/19 at 14:30 CARLOS GALINDO NP Jan 12, 2019 18:04
[2019-01-12 19:17] VITALS: BP 97/52; PULSE 107; RESP 19
[2019-01-13 03:00] VITALS: BP 106/61; PULSE 116; RESP 19
[2019-01-13] MEDS: morphine 2 MG INJ IV PRN ×3 (03:32→11:39)
[2019-01-13] MEDS: HYDROCODONE/APAP (10/325) TAB PO PRN (04:05)
[2019-01-13] MEDS: LEVOFLOXACIN 750 MG TABLET PO SCH (06:15)
[2019-01-13] MEDS: CEFAZOLIN 1 GM/50 ML (PMX) 50 ML IVPB SCH ×2 (06:15→11:46)
[2019-01-13] MEDS: ENOXAPARIN 40 MG/0.4 ML SYG SC SCH (06:16)
[2019-01-13] MEDS: LORAZEPAM 2 MG INJ IV PRN ×2 (06:20→12:34)
[2019-01-13 07:21] VITALS: BP 103/58; PULSE 104; RESP 19
[2019-01-13] MEDS: NACL 0.9% 3 ML SYG IV SCH (11:46)
[2019-01-13 14:11] VITALS: BP 103/58; PULSE 112; RESP 18
--- NOTE | 2019-01-13 17:29 | DS ---
Date/Time of Note Date/Time of Note DATE: 01/13/19 TIME: 17:28 Discharge Summary Admission/Discharge Info Admit Date/Time Jan 08, 2019 at 02:21 Discharge Date/Time Jan 13, 2019 at 14:45 Discharge Diagnosis Patient left AMA 38 yo heroin addict presents with L hip abscess from intramuscular injection. #Sepsis secondary to left hip abscess -CT is consistent with abscess -Status post surgical drainage with surgery - IV vanco, zosyn -Wound culture currently growing staph -ID consultation appreciated -Wound care #Asthma - Albuterol prn #Heroin use - Patient is motivated to quit, social work consult appreciated, patient will be placed in a drug rehab program after DC Patient Condition: Fair Hospital Course Patient is a 38 yo heroin addict presents with L hip abscess from intramuscular injection. CT did show abscess, patient underwent surgical drainage received IV antibiotics. Patient was seen by ID and wound care. Family want to get patient in a drug rehab program but they would not accept him with his wound. 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 Home Meds Active Scripts Amoxicillin* (Amoxicillin*) 500 Mg Cap, 500 MG PO BID for 7 Days, CAP Prov:MARLEN MANDUJANO 10/05/17 Ibuprofen* (Motrin*) 600 Mg Tab, 600 MG PO Q6, #30 TAB Prov:MARLEN MANDUJANO 10/05/17 Primary Care Provider Care Physician No Primary Time spent on discharge: < 30 minutes TOM BAUTISTA Jan 13, 2019 17:29
== END 2019-01-13 14:45 | disposition left against medical advice (07) | DRG 853 ==
LOC: E/R 23:43 → 2NE 01-08 02:21 → SUATTDRO 01-08 02:30
PROVIDERS: ADMIT Internal Medicine; ATTEND Internal Medicine
PROC: 0J990ZZ Drainage of Buttock Subcutaneous Tissue and Fascia, Open Approach (ICD-10-PCS; principal; 2019-01-08 18:15)
DX: A41.9 Sepsis, unspecified organism (principal); J18.9 Pneumonia, unspecified organism; L02.31 Cutaneous abscess of buttock; F11.20 Opioid dependence, uncomplicated; Z72.0 Tobacco use
CPT/HCPCS: 71045; 73510; 74177; 80048; 80053; 80202; 83036; 83605; 83690; 83735; 84100; 84443; 84484; 85025; 85610; 85730; 87070; 87075; 87102; 93005; J0690; J1100; J1170; J1650; J2060; J2250; J2270; J2405; J2543; J2710; J3010; J3370; J3480; J7030; J7040; J7050; Q9967

== ENCOUNTER 2019-01-15 16:11 | Inpatient (IN) | payer OTHER ==
[~2019-01-15] VITALS: Ht 182.9 cm; Wt 66.8 kg
[2019-01-15] MEDS ORDERED: PIPER-TAZO 3.375 GM IV (PMX) 100 ML IVPB STA (19:18)
[2019-01-15] MEDS ORDERED: morphine 4 MG/ML VIAL IV STA (19:18)
[2019-01-15] MEDS ORDERED: SOD CHLORIDE 0.9% 1,000 ML IV STA (19:18)
[2019-01-15] MEDS ORDERED: CEFTRIAXONE 1 GM/50 ML (PMX) 50 ML IVPB STA (19:18)
[2019-01-15] MEDS ORDERED: ONDANSETRON 4 MG INJ IV STA (19:18)
--- NOTE | 2019-01-15 19:27 | ERD ---
ER Documentation Chief Complaint Chief Complaint possible infected in hip, AMA fr floor HPI This is a 38-year-old heroin drug abuser presenting with continued left buttock pain, redness, swelling. He states he left the hospital AGAINST MEDICAL ADVICE about a week ago shortly after OR incisional drainage of his left gluteal abscess. He states since discharge he has continued to use heroin although has not injected his left side. He denies fevers or chills, no chest pain or shortness of breath. ROS All systems reviewed and are negative except as per history of present illness. Medications Home Meds Active Scripts Amoxicillin* (Amoxicillin*) 500 Mg Cap, 500 MG PO BID for 7 Days, CAP Prov:NAZIA,MARLEN C 10/05/17 Ibuprofen* (Motrin*) 600 Mg Tab, 600 MG PO Q6, #30 TAB Prov:NAZIA,MARLEN C 10/05/17 Allergies Allergies: Coded Allergies: No Known Drug Allergies (Verified Allergy, Unknown, 10/05/17) PMhx/Soc Heroin abuse, recent left gluteal abscess status post OR incision and drainage last week History of Surgery: Yes (Lt hand sx 2004) Anesthesia Reaction: No Hx Neurological Disorder: No Hx Respiratory Disorders: No Hx Cardiac Disorders: No Hx Psychiatric Problems: Yes (anxiety/depression) Hx Miscellaneous Medical Probl: No Hx Alcohol Use: No (quit 15 yrs ago) Hx Substance Use: Yes (heroin use on &off x27 yrs) Hx Tobacco Use: Yes Smoking Status: Current every day smoker FmHx Family History: No diabetes Physical Exam Vitals Vital Signs Date Temp Pulse Resp B/P (MAP) Pulse Ox O2 O2 Flow FiO2 Time Delivery Rate 01/15/19 99.4 109 18 107/68 97 16:34 (81) Physical Exam GENERAL: Well-developed, well-nourished, appears dehydrated, moderate discomfort, afebrile HEENT: Dry mucous membranes, pink conjunctiva, no cervical spine tenderness or step-off deformities, CARDIAC: Tachycardic and regular, no murmurs rubs or gallops LUNGS: Clear bilaterally no wheezing crackles or stridor ABDOMEN: Soft nontender, no guarding, no rigidity, no rebound, no psoas sign no obturator sign. SKIN: Warm and dry to touch, large zone of indurated erythematous skin with a central deep left gluteal abscess, recent surgical sites are noted no purulent discharge from those sites EXTREMITIES: No clubbing cyanosis or edema, calves are bilaterally symmetrical, no Homans sign, no popliteal cord sign. Distal pulses equal and bilateral PSYCH: Normal affect without agitation or irritability Result Diagram: 01/15/19193801/15/191938 Results 24 hrs Current Medications Medications Dose Sig/Zion Start Time Status Last (Trade) Ordered Route PRN Stop Time Admin Dose Reason Admin Sodium 1,000 ml @ Q30M STAT 01/15/19 DC 01/15/19 Chloride 2,000 mls/hr IV 19:18 19:49 01/15/19 19:47 Morphine 4 mg ONCE STAT 01/15/19 DC 01/15/19 Sulfate IV 19: 19:49 (morphine) 01/15/19 19:22 Ondansetron 4 mg ONCE STAT 01/15/19 DC 01/15/19 HCl (Zofran IV 19:18 19:49 Inj) 01/15/19 19:22 Ceftriaxone 50 ml @ ONCE STAT 01/15/19 DC 01/15/19 Sodium 100 mls/hr IVPB 19:18 20:14 01/15/19 19:47 Piperacillin 100 ml @ ONCE STAT 01/15/19 DC 01/15/19 Sod/ 200 mls/hr IVPB 19:18 19:49 Tazobactam 01/15/19 19:47 Sod Vancomycin 250 ml @ ONCE ONCE 01/15/19 DC 01/15/19 HCl 125 mls/hr IVPB 19:30 20:52 01/15/19 21:29 Ibuprofen 600 mg ONCE ONCE 01/15/19 DC 01/15/19 (Motrin) PO 19:30 19:49 01/15/19 19:31 Procedures/MDM IV line was established patient was placed on cardiac exercise physiologist rhythm strip revealed a sinus rhythm at about 90 bpm with upright P and T waves. Patient was afebrile I administered 2 L normal saline IV, ibuprofen 600 mg p.o., morphine 4 mg IV, Zofran 4 mg IV, Ceftriaxone 1 g IV, Zosyn 3.375 g IV, vancomycin 1 g IV CBC reveals a leukocytosis of 21, electrolytes are unremarkable, liver function tests normal. I do not suspect sepsis. I spoke to Dr. Matt regarding the patient's return as he was the surgeon last week. Patient admitted to [facility] for continued IV antibiotics and I&D Departure Diagnosis: Primary Impression: Abscess, gluteal, left Additional Impression: Heroin abuse Condition: AIDA Chong MD Jan 15, 2019 19:27
[2019-01-15] MEDS ORDERED: IBUPROFEN 600 MG TAB PO ONE (19:30)
[2019-01-15] MEDS ORDERED: VANCOMYCIN 1 GM (PMX) 250 ML IVPB ONE (19:30)
[2019-01-15] MEDS ORDERED: ONDANSETRON 4 MG INJ IV PRN (20:30)
[2019-01-15] MEDS ORDERED: DOCUSATE SODIUM 100 MG CAP PO PRN (20:30)
[2019-01-15] MEDS ORDERED: BISACODYL (EC) 5 MG TAB PO PRN (20:30)
[2019-01-15] MEDS ORDERED: NACL 0.9% 3 ML SYG IV SCH (20:30)
[2019-01-15] MEDS ORDERED: VANCOMYCIN IV PER PHARMACY XX SCH (20:30)
[2019-01-15] MEDS ORDERED: ACETAMINOPHEN 325 MG TAB PO PRN (20:30)
--- NOTE | 2019-01-15 20:40 | HP ---
Date/Time of Note Date/Time of Note DATE: 01/15/19 TIME: 20:40 Assessment/Plan VTE Prophylaxis SCD applied (from Nsg): Yes Pharmacological prophylaxis: NA/contraindicated Pharm contraindication: low risk/ambulating Lines/Catheters IV Catheter Type (from Nrsg): Saline Lock Assessment/Plan Hospital Course This is a 38-year-old male being admitted to the [facility] floor for: 1. Left gluteal abscess: We will order an ultrasound of the left buttocks for further evaluation. Follow-up blood culture results. Broad-spectrum antibiotics of vancomycin and Zosyn. ED spoke with Dr. Matt who performed previous I&D. 2. Asthma: Currently no acute issues, PRN albuterol as needed. 3. Transaminitis: monitor for now, no ruq pain. if persistent, further work up. 4. Heroin use: PRN Ativan for withdrawal symptoms. Patient continues to use despite previous mention of wanting to quit. Social work consult. 5. DVT and GI prophylaxis: SCDs, no GI prophylaxis indicated Further treatment strategy will be implemented as per the clinical course Result Diagram: 01/15/19193801/15/191938 Results 24hrs Laboratory Tests Test 01/15/19 19:39 White Blood Count 20.8 #H Red Blood Count 3.54 L Hemoglobin 10.7 L Hematocrit 32.9 L Mean Corpuscular Volume 92.9 Mean Corpuscular Hemoglobin 30.2 Mean Corpuscular Hemoglobin Concent 32.5 Red Cell Distribution Width 13.0 Platelet Count 446 H Mean Platelet Volume 7.9 Immature Granulocytes % 1.300 H Neutrophils % 78.3 H Lymphocytes % 10.4 L Monocytes % 8.8 Eosinophils % 0.8 Basophils % 0.4 Nucleated Red Blood Cells % 0.0 Immature Granulocytes # 0.260 H Neutrophils # 16.3 H Lymphocytes # 2.2 Monocytes # 1.8 H Eosinophils # 0.2 Basophils # 0.1 Nucleated Red Blood Cells # 0.0 Prothrombin Time 14.0 Prothrombin Time Ratio 1.1 INR International Normalized Ratio 1.07 Activated Partial Thromboplast Time 34.6 Sodium Level 136 Potassium Level 3.9 Chloride Level 96 L Carbon Dioxide Level 32 H Anion Gap 8 Blood Urea Nitrogen 18 Creatinine 0.86 Est Glomerular Filtrat Rate mL/min > 60 Glucose Level 75 Calcium Level 8.6 Total Bilirubin 0.3 Direct Bilirubin 0.00 Indirect Bilirubin 0.3 Aspartate Amino Transf (AST/SGOT) 59 H Alanine Aminotransferase (ALT/SGPT) 97 H Alkaline Phosphatase 137 H Total Protein 7.5 Albumin 3.5 Globulin 4.00 H Albumin/Globulin Ratio 0.87 Lipase 46 HPI/ROS Admit Date/Time Admit Date/Time Hx of Present Illness Chief complaint: Left buttock pain, swelling This is a 38-year-old heroin drug abuser presenting with continued left buttock pain, redness, swelling. She was admitted for left gluteal abscess which he had OR drainage for by Dr. Matt. Patient was also on antibiotics. He left the hospital AGAINST MEDICAL ADVICE. He states that over the last few days he has started noticing increased swelling of the left buttocks and tightness. He denies any fevers. He is currently not on any antibiotics. He denies any fevers or chills or nausea vomiting or diarrhea. He did report that he uses heroin but that he did not inject in the left gluteal area. He did have a wound culture during his previous admission that grew staph aureus. Allergies: NKDA Medications: None ROS Const: As per HPI Eyes : No pain discharge or redness or change in visual acuity ENT: No pain, sore throat, congestion, congestion, dysphagia or discharge Respiratory: No shortness of breath, cough, sputum, wheezing, or pleuritic pain Cardiovascular: No chest pain, palpitation, PND, or edema GI : no change in appetite, abdominal pain, nausea, vomiting, diarrhea, constipation, or change in the color his stool Genitourinary: No dysuria, hematuria, flank pain , discharge or CVA tenderness Musculoskeletal: No joint pain, back pain, neck pain, restricted range of motion in neck or joints Skin: As per HPI Neuro: No headache, dizziness, syncope, seizure, focal weakness Endocrine: No polyuria, polydipsia, temperature intolerance Psych: No hallucination, depression, anxiety or suicidal ideation PMH/Family/Social Past Medical History Asthma Medications Current Medications Vancomycin HCl 250 ml @ 125 mls/hr ONCE ONCE IVPB ; Start 01/15/19 at 19:30; Stop 01/15/19 at 21:29 Sodium Chloride 1,000 ml @ 70 mls/hr [id number] IV ; Start 01/16/19 at 00:00 IV Flush (NS 3 ml) 3 ml PER PROTOCOL IV ; Start 01/15/19 at 20:30 Ondansetron HCl (Zofran Inj) 4 mg Q6H PRN IV NAUSEA/VOMITING; Start 01/15/19 at 20:30 Acetaminophen (Tylenol Tab) 650 mg Q6H PRN PO .PAIN 1-3 OR TEMP; Start 01/15/19 at 20:30 Acetaminophen/ Hydrocodone Bitart ([place] (5/325)) 1 tab Q6H PRN PO .MOD PAIN 4- 6; Start 01/15/19 at 20:30 Morphine Sulfate (morphine) 2 mg Q4H PRN IV .SEVERE PAIN 7-10; Start 01/15/19 at 20:30 Docusate Sodium (Colace) 100 mg Q12H PRN PO .CONSTIPATION; Start 01/15/19 at 20:30 Bisacodyl (Dulcolax) 5 mg DAILY PRN PO .CONSTIPATION; Start 01/15/19 at 20:30 Coded Allergies: No Known Drug Allergies (Verified Allergy, Unknown, 10/05/17) Past Surgical History L hand surgery after trauma basilar skull fracture s/p repair Past Surgical Hx: other Family History Significant Family History: no pertinent family hx Social History Alcohol Use: other (Unknown) Smoking Status: Current every day smoker Drug Use: heroin Exam/Review of Systems Vital Signs Vitals Vital Signs Date Temp Pulse Resp B/P (MAP) Pulse Ox O2 O2 Flow FiO2 Time Delivery Rate 01/15/19 115 20 110/68 100 Room Air 20:00 (82) 01/15/19 99.4 16:34 Exam Exam General: Patient is a pleasant male currently lying in bed in no acute distress HEENT: Atraumatic, normocephalic. The pupils are equal, round and reactive. Extraocular motor are intact Neck: Supple with full range of motion. No rigidity or meningismus Chest: Nontender Lungs: Clear to auscultation bilaterally no crackles rales or wheezing Heart: Normal S1-S2, Regular rhythm and rate. No murmur, S3, or S4 Abdomen: Soft , nontender, nondistended , bowel sounds are present. No guarding no rebound tenderness , No masses or organomegaly. No costovertebral temporal angle mass Extremities: Normal to inspection, no edema no cyanosis Skin: Significant left gluteal swelling and induration noted, approximately 7 x 7 cm. Neurologic: Normal mental status, speech normal, cranial nerves II through XII are intact, motor and sensory are intact, no focal weakness MARCO ANTONIO ERAZO Jan 15, 2019 20:40
[2019-01-15 21:29] VITALS: BP 104/62; PULSE 103; RESP 20
[2019-01-15 22:17] VITALS: Ht 182.9 cm; Wt 66.8 kg
[2019-01-16] MEDS ORDERED: SOD CHLORIDE 0.9% 1,000 ML IV SCH
[2019-01-16] MEDS: PIPER-TAZO 3.375 GM IV (PMX) 100 ML IVPB SCH ×5 (01:18→22:58)
[2019-01-16 02:27] VITALS: BP 92/53; PULSE 82; RESP 18
[2019-01-16] MEDS: SOD CHLORIDE 0.9% 1,000 ML IV SCH ×2 (06:00→20:36)
[2019-01-16] MEDS: morphine 2 MG INJ IV PRN ×4 (06:09→22:59)
[2019-01-16] MEDS: VANCOMYCIN 1 GM 250 ML IVPB SCH ×3 (06:10→20:36)
[2019-01-16 07:59] VITALS: BP 98/51; PULSE 89; RESP 18
--- NOTE | 2019-01-16 11:39 | CONS ---
"Assessment/Plan Assessment/Plan Hospital Course (Demo Recall) 1. Left gluteal abscess: Status post I&D 01/08/2019 -will need repeat I&D> will schedule -IV antibiotics -Pain management 2. Leukocytosis: -As above -Trend 3.Hyperkalemia: -Optimize electrolytes 4. Elevated ALT and alkaline phosphatase: Improving -Trend -Further work-up if persistent 5. Normocytic normochromic anemia: -Monitor and transfuse as needed 6. Asthma history: -Med management 7. Illicit drug use: -Highly encourage cessation Thank you. Patient seen and examined in collaboration with Dr. He Canales. Consultation Date/Type/Reason Admit Date/Time Date of Consultation: Jan 16, 2019 Type of Consult Surgical Reason for Consultation Left gluteal abscess Date/Time of Note DATE: 01/16/19 TIME: 11:06 Hx of Present Illness Chace Sabillon is a 38-year-old man with past medical history of illicit drug use, who presents with left gluteal pain and swelling. Notably, he was admitted a few days ago for similar issues and underwent left gluteal abscess incision and drainage. He again returns with increased swelling to the left gluteal area. He denies injecting into the area however he does admit to injecting heroin intravenously in his arm. Laboratory findings significant for leukocytosis. Imaging of the left gluteal area shows heterogeneous collection in subcutaneous tissues measuring 7.8 x 3.7 x 8.4 cm. Additional symptoms include chills and left buttock pain. He denies fevers, chills, congested cough, additional trauma to the area, change in bowel or bladder habits, skin changes, seizure, rash. General surgery was asked to evaluate. 12 point review of systems was performed and is negative except as stated in HPI. Past Medical History asthma illicit drug use abscess s/p I&d Home Meds Active Scripts Amoxicillin* (Amoxicillin*) 500 Mg Cap, 500 MG PO BID for 7 Days, CAP Prov:NAZIA,MARLEN C 10/05/17 Ibuprofen* (Motrin*) 600 Mg Tab, 600 MG PO Q6, #30 TAB Prov:NAZIAMARLEN C 10/05/17 Medications Current Medications IV Flush (NS 3 ml) 3 ml PER PROTOCOL IV ; Start 01/15/19 at 20:30 Ondansetron HCl (Zofran Inj) 4 mg Q6H PRN IV NAUSEA/VOMITING; Start 01/15/19 at 20:30 Acetaminophen (Tylenol Tab) 650 mg Q6H PRN PO .PAIN 1-3 OR TEMP; Start 01/15/19 at 20:30 Acetaminophen/ Hydrocodone Bitart ([place] (5/325)) 1 tab Q6H PRN PO .MOD PAIN 4- 6; Start 01/15/19 at 20:30 Morphine Sulfate (morphine) 2 mg Q4H PRN IV .SEVERE PAIN 7-10 Last administered on 01/16/19at 10:26; Admin Dose 2 MG; Start 01/15/19 at 20:30 Docusate Sodium (Colace) 100 mg Q12H PRN PO .CONSTIPATION; Start 01/15/19 at 20:30 Bisacodyl (Dulcolax) 5 mg DAILY PRN PO .CONSTIPATION; Start 01/15/19 at 20:30 Vancomycin HCl (Vanco Iv Per Pharmacy) VANCOMYCIN PER PHARMACY PER PROTOCOL XX ; Start 01/15/19 at 20:30 Piperacillin Sod/ Tazobactam Sod 100 ml @ 200 mls/hr Q6 IVPB Last administered on 01/16/19at 05:39; Admin Dose 200 MLS/HR; Start 01/16/19 at 00:00 Vancomycin HCl 250 ml @ 125 mls/hr Q8H IVPB Last administered on 01/16/19at 06:10; Admin Dose 125 MLS/HR; Start 01/16/19 at 05:00 Sodium Chloride 1,000 ml @ 70 mls/hr [id number] IV ; Start 01/16/19 at 06:00 Allergies: Coded Allergies: No Known Drug Allergies (Verified Allergy, Unknown, 10/05/17) Past Surgical History as above Past Surgical Hx: other Family History Significant Family History: no pertinent family hx Social History Alcohol Use: other (Unknown) Smoking Status: Current every day smoker Drug Use: heroin Exam/Review of Systems Exam Vitals Vital Signs Date Temp Pulse Resp B/P (MAP) Pulse Ox O2 O2 Flow FiO2 Time Delivery Rate 01/16/19 98.4 89 18 98/51 (67) 97 07:59 01/15/19 Room Air 20:53 Intake and Output 01/15/19 01/15/19 01/16/19 1515:00 23:00 07:00 IntakeIntake Total 1150 ml 480 ml BalanceBalance 1150 ml 480 ml Constitutional: alert, oriented Psych: nl mood/affect, anxiety Head: normocephalic, atraumatic Eyes: nl conjunctiva, EOMI, nl lids, nl sclera ENMT: nl external ears & nose, nl lips & teeth, nl nasal mucosa & septum, mucosa pink and moist Neck: supple, non-tender Respiratory: normal air movement; No congested cough Cardiovascular: regular rate and rhythm, nl pulses Gastrointestinal: soft, non-tender Musculoskeletal: nl extremities to inspection, nl gait and stance Extremities: normal pulses Neurological: nl mental status, nl speech, nl strength Skin: nl turgor, other (Left buttock: Tender, fluctuant, erythema | left hip: Open wounds: Min drainage) Results Result Diagram: 01/16/19 0552 01/16/19 0552 Results 24hrs Laboratory Tests Test 01/15/19 19:39 01/16/19 05:52 White Blood Count 20.8 #H 17.0 H Red Blood Count 3.54 L 3.09 L Hemoglobin 10.7 L 9.4 L Hematocrit 32.9 L 29.3 L Mean Corpuscular Volume 92.9 94.8 Mean Corpuscular Hemoglobin 30.2 30.4 Mean Corpuscular Hemoglobin Concent 32.5 32.1 Red Cell Distribution Width 13.0 13.2 Platelet Count 446 H 360 Mean Platelet Volume 7.9 8.0 Immature Granulocytes % 1.300 H 0.600 H Neutrophils % 78.3 H 80.2 H Lymphocytes % 10.4 L 9.7 L Monocytes % 8.8 8.1 Eosinophils % 0.8 1.0 Basophils % 0.4 0.4 Nucleated Red Blood Cells % 0.0 0.0 Immature Granulocytes # 0.260 H 0.100 H Neutrophils # 16.3 H 13.6 H Lymphocytes # 2.2 1.6 Monocytes # 1.8 H 1.4 H Eosinophils # 0.2 0.2 Basophils # 0.1 0.1 Nucleated Red Blood Cells # 0.0 0.0 Erythrocyte Sedimentation Rate 70 H 61 H Prothrombin Time 14.0 Prothrombin Time Ratio 1.1 INR International Normalized Ratio 1.07 Activated Partial Thromboplast Time 34.6 Sodium Level 136 139 Potassium Level 3.9 5.3 H Chloride Level 96 L 102 Carbon Dioxide Level 32 H 33 H Anion Gap 8 4 L Blood Urea Nitrogen 18 13 Creatinine 0.86 0.68 Est Glomerular Filtrat Rate mL/min > 60 > 60 Glucose Level 75 102 Calcium Level 8.6 8.4 Total Bilirubin 0.3 0.4 Direct Bilirubin 0.00 0.00 Indirect Bilirubin 0.3 0.4 Aspartate Amino Transf (AST/SGOT) 59 H 40 Alanine Aminotransferase (ALT/SGPT) 97 H 81 H Alkaline Phosphatase 137 H 124 H Total Protein 7.5 6.3 # Albumin 3.5 2.8 L Globulin 4.00 H 3.50 H Albumin/Globulin Ratio 0.87 0.80 Lipase 46 Magnesium Level 2.1 C-Reactive Protein 14.2 H Medications Medication Current Medications IV Flush (NS 3 ml) 3 ml PER PROTOCOL IV ; Start 01/15/19 at 20:30 Ondansetron HCl (Zofran Inj) 4 mg Q6H PRN IV NAUSEA/VOMITING; Start 01/15/19 at 20:30 Acetaminophen (Tylenol Tab) 650 mg Q6H PRN PO .PAIN 1-3 OR TEMP; Start 01/15/19 at 20:30 Acetaminophen/ Hydrocodone Bitart ([place] (5/325)) 1 tab Q6H PRN PO .MOD PAIN 4- 6; Start 01/15/19 at 20:30 Morphine Sulfate (morphine) 2 mg Q4H PRN IV .SEVERE PAIN 7-10 Last administered on 01/16/19at 10:26; Admin Dose 2 MG; Start 01/15/19 at 20:30 Docusate Sodium (Colace) 100 mg Q12H PRN PO .CONSTIPATION; Start 01/15/19 at 20:30 Bisacodyl (Dulcolax) 5 mg DAILY PRN PO .CONSTIPATION; Start 01/15/19 at 20:30 Vancomycin HCl (Vanco Iv Per Pharmacy) VANCOMYCIN PER PHARMACY PER PROTOCOL XX ; Start 01/15/19 at 20:30 Piperacillin Sod/ Tazobactam Sod 100 ml @ 200 mls/hr Q6 IVPB Last administered on 01/16/19at 05:39; Admin Dose 200 MLS/HR; Start 01/16/19 at 00:00 Vancomycin HCl 250 ml @ 125 mls/hr Q8H IVPB Last administered on 01/16/19at 06:10; Admin Dose 125 MLS/HR; Start 01/16/19 at 05:00 Sodium Chloride 1,000 ml @ 70 mls/hr [id number] IV ; Start 01/16/19 at 06:00 OBEY RUSS NP Jan 16, 2019 11:21"
--- NOTE | 2019-01-16 13:58 | PN ---
Date/Time of Note Date/Time of Note DATE: 01/16/19 TIME: 13:57 Assessment/Plan VTE Prophylaxis Risk score (from [facility] [place]0 risk: 1 SCD applied (from Ns): Yes Pharmacological prophylaxis: NA/contraindicated Pharm contraindication: low risk/ambulating Lines/Catheters [facility] Peripheral IV Urinary Cath still in place: No Assessment/Plan Hospital Course 1. Left gluteal abscess: Status post I&D 01/08/2019 -will need repeat I&D per surgery, they will schedule -IV antibiotics -Pain management 2. Leukocytosis: -As above -Trend 3.Hyperkalemia: -Optimize electrolytes 4. Elevated ALT and alkaline phosphatase: Improving -Trend -Further work-up if persistent 5. Normocytic normochromic anemia: -Monitor and transfuse as needed 6. Asthma history: -Med management 7. Illicit drug use: -Highly encourage cessation Further interventions per clinical course . Result Diagram: 01/16/19 0552 01/16/19 0552 Results 24hrs Laboratory Tests Test 01/15/19 19:39 01/16/19 05:52 White Blood Count 20.8 #H 17.0 H Red Blood Count 3.54 L 3.09 L Hemoglobin 10.7 L 9.4 L Hematocrit 32.9 L 29.3 L Mean Corpuscular Volume 92.9 94.8 Mean Corpuscular Hemoglobin 30.2 30.4 Mean Corpuscular Hemoglobin Concent 32.5 32.1 Red Cell Distribution Width 13.0 13.2 Platelet Count 446 H 360 Mean Platelet Volume 7.9 8.0 Immature Granulocytes % 1.300 H 0.600 H Neutrophils % 78.3 H 80.2 H Lymphocytes % 10.4 L 9.7 L Monocytes % 8.8 8.1 Eosinophils % 0.8 1.0 Basophils % 0.4 0.4 Nucleated Red Blood Cells % 0.0 0.0 Immature Granulocytes # 0.260 H 0.100 H Neutrophils # 16.3 H 13.6 H Lymphocytes # 2.2 1.6 Monocytes # 1.8 H 1.4 H Eosinophils # 0.2 0.2 Basophils # 0.1 0.1 Nucleated Red Blood Cells # 0.0 0.0 Erythrocyte Sedimentation Rate 70 H 61 H Prothrombin Time 14.0 Prothrombin Time Ratio 1.1 INR International Normalized Ratio 1.07 Activated Partial Thromboplast Time 34.6 Sodium Level 136 139 Potassium Level 3.9 5.3 H Chloride Level 96 L 102 Carbon Dioxide Level 32 H 33 H Anion Gap 8 4 L Blood Urea Nitrogen 18 13 Creatinine 0.86 0.68 Est Glomerular Filtrat Rate mL/min > 60 > 60 Glucose Level 75 102 Calcium Level 8.6 8.4 Total Bilirubin 0.3 0.4 Direct Bilirubin 0.00 0.00 Indirect Bilirubin 0.3 0.4 Aspartate Amino Transf (AST/SGOT) 59 H 40 Alanine Aminotransferase (ALT/SGPT) 97 H 81 H Alkaline Phosphatase 137 H 124 H Total Protein 7.5 6.3 # Albumin 3.5 2.8 L Globulin 4.00 H 3.50 H Albumin/Globulin Ratio 0.87 0.80 Lipase 46 Magnesium Level 2.1 C-Reactive Protein 14.2 H Subjective 24 Hr Interval Summary Free Text/Dictation no new issues Exam/Review of Systems Exam Vitals Vital Signs Date Temp Pulse Resp B/P (MAP) Pulse Ox O2 O2 Flow FiO2 Time Delivery Rate 01/16/19 98.4 89 18 98/51 (67) 97 07:59 01/15/19 Room Air 20:53 Intake and Output 01/15/19 01/15/19 01/16/19 1515:00 23:00 07:00 IntakeIntake Total 1150 ml 480 ml BalanceBalance 1150 ml 480 ml Exam General: no acute distress HEENT: Atraumatic, normocephalic. The pupils are equal, round and reactive. Extraocular motor are intact Neck: Supple with full range of motion. No rigidity or meningismus Chest: Nontender Lungs: Clear to auscultation bilaterally no crackles rales or wheezing Heart: Normal S1-S2, Regular rhythm and rate. No murmur, S3, or S4 Abdomen: Soft , nontender, nondistended , bowel sounds are present. No guarding no rebound tenderness , No masses or organomegaly. No costovertebral temporal angle mass Extremities: Normal to inspection, no edema no cyanosis Skin: Significant left gluteal swelling and induration noted, approximately 7 x 7 cm. Results Results 24hrs Laboratory Tests Test 01/15/19 19:39 01/16/19 05:52 White Blood Count 20.8 #H 17.0 H Red Blood Count 3.54 L 3.09 L Hemoglobin 10.7 L 9.4 L Hematocrit 32.9 L 29.3 L Mean Corpuscular Volume 92.9 94.8 Mean Corpuscular Hemoglobin 30.2 30.4 Mean Corpuscular Hemoglobin Concent 32.5 32.1 Red Cell Distribution Width 13.0 13.2 Platelet Count 446 H 360 Mean Platelet Volume 7.9 8.0 Immature Granulocytes % 1.300 H 0.600 H Neutrophils % 78.3 H 80.2 H Lymphocytes % 10.4 L 9.7 L Monocytes % 8.8 8.1 Eosinophils % 0.8 1.0 Basophils % 0.4 0.4 Nucleated Red Blood Cells % 0.0 0.0 Immature Granulocytes # 0.260 H 0.100 H Neutrophils # 16.3 H 13.6 H Lymphocytes # 2.2 1.6 Monocytes # 1.8 H 1.4 H Eosinophils # 0.2 0.2 Basophils # 0.1 0.1 Nucleated Red Blood Cells # 0.0 0.0 Erythrocyte Sedimentation Rate 70 H 61 H Prothrombin Time 14.0 Prothrombin Time Ratio 1.1 INR International Normalized Ratio 1.07 Activated Partial Thromboplast Time 34.6 Sodium Level 136 139 Potassium Level 3.9 5.3 H Chloride Level 96 L 102 Carbon Dioxide Level 32 H 33 H Anion Gap 8 4 L Blood Urea Nitrogen 18 13 Creatinine 0.86 0.68 Est Glomerular Filtrat Rate mL/min > 60 > 60 Glucose Level 75 102 Calcium Level 8.6 8.4 Total Bilirubin 0.3 0.4 Direct Bilirubin 0.00 0.00 Indirect Bilirubin 0.3 0.4 Aspartate Amino Transf (AST/SGOT) 59 H 40 Alanine Aminotransferase (ALT/SGPT) 97 H 81 H Alkaline Phosphatase 137 H 124 H Total Protein 7.5 6.3 # Albumin 3.5 2.8 L Globulin 4.00 H 3.50 H Albumin/Globulin Ratio 0.87 0.80 Lipase 46 Magnesium Level 2.1 C-Reactive Protein 14.2 H Medications Medication Current Medications IV Flush (NS 3 ml) 3 ml PER PROTOCOL IV ; Start 01/15/19 at 20:30 Ondansetron HCl (Zofran Inj) 4 mg Q6H PRN IV NAUSEA/VOMITING; Start 01/15/19 at 20:30 Acetaminophen (Tylenol Tab) 650 mg Q6H PRN PO .PAIN 1-3 OR TEMP; Start 01/15/19 at 20:30 Acetaminophen/ Hydrocodone Bitart ([place] (5/325)) 1 tab Q6H PRN PO .MOD PAIN 4- 6; Start 01/15/19 at 20:30 Morphine Sulfate (morphine) 2 mg Q4H PRN IV .SEVERE PAIN 7-10 Last administered on 01/16/19at 10:26; Admin Dose 2 MG; Start 01/15/19 at 20:30 Docusate Sodium (Colace) 100 mg Q12H PRN PO .CONSTIPATION; Start 01/15/19 at 20:30 Bisacodyl (Dulcolax) 5 mg DAILY PRN PO .CONSTIPATION; Start 01/15/19 at 20:30 Vancomycin HCl (Vanco Iv Per Pharmacy) VANCOMYCIN PER PHARMACY PER PROTOCOL XX ; Start 01/15/19 at 20:30 Piperacillin Sod/ Tazobactam Sod 100 ml @ 200 mls/hr Q6 IVPB Last administered on 01/16/19at 12:30; Admin Dose 200 MLS/HR; Start 01/16/19 at 00:00 Vancomycin HCl 250 ml @ 125 mls/hr Q8H IVPB Last administered on 01/16/19at 13:14; Admin Dose 125 MLS/HR; Start 01/16/19 at 05:00 Sodium Chloride 1,000 ml @ 70 mls/hr [id number] IV ; Start 01/16/19 at 06:00 Miscellaneous Information (*Rx Drug Level Order Reminder*) VANCO TROUGH @ 0,400 0400 ONCE XX ; Start 01/17/19 at 04:00; Stop 01/17/19 at 04:01 KARLA RAYMOND Jan 16, 2019 13:58
[2019-01-16] MEDS ORDERED: LIDOCAINE 2%/EPI (MDV) 20ML INJ INJ ONE (14:30)
[2019-01-16] MEDS ORDERED: SILVER NITRATE SWAB TOP ONE (14:30)
[2019-01-16 14:45] VITALS: BP 95/55; PULSE 86; RESP 16
[2019-01-16] MEDS ORDERED: HYDROmorphONE 1 MG/ML SYG IV ONE (17:45)
--- NOTE | 2019-01-16 17:55 | OPR ---
Date/Time of Note Date/Time of Note DATE: 01/16/19 TIME: 17:52 Operative Report Procedure Date: Jan 16, 2019 Preoperative Diagnosis Large left gluteal abscess Postoperative Diagnosis Same, multiloculated Operation/Procedure Performed 1. Incision and drainage of large left gluteal abscess 8 x 8 cm 2. Local anesthetic injection, [id number] Surgeon Shabbir Lewis MD Appointment Clerk Jo Charlton, AFSANEH Anesthesia Type: other (Local) Estimated Blood Loss: 0 - 10 ml's Transfusion none Specimen Culture Grafts/Implants Kerlix with Betadine Tubes/Drains None Complications none Pt Condition Post Procedure: stable Disposition: other (His own room) Indications Per consult note. Risks include but are not limited to bleeding, infection, abscess, seroma, leak, chronic wound, chronic pain, need for re-operations or further surgeries, ID, stroke, PE, DVT, pneumonia, organ failures, or even . Procedure Description Patient was placed in lateral decubitus with left side up. All pressure points were well-padded. Timeout was performed. He is prepped and draped sterilely. Local anesthetic injection is performed at surgical site. Needle aspiration is performed and abscesses identified. Vertical incision is made into the gluteal area on the left side and a large amount of pus and debris is drained. Finger dissection is to break up all the multi-loculations. Wound is fully irrigated with Betadine and saline and then packed with Kerlix and Betadine. Dressing is applied. Patient tolerated procedure well. SHABBIR LEWIS MD Jan 16, 2019 17:55
[2019-01-16 20:00] VITALS: BP 100/55; PULSE 112; RESP 19
[2019-01-17 02:00] VITALS: BP 105/65; PULSE 90; RESP 18
[2019-01-17] MEDS: PIPER-TAZO 3.375 GM IV (PMX) 100 ML IVPB SCH ×3 (05:31→18:53)
[2019-01-17] MEDS: VANCOMYCIN 1 GM 250 ML IVPB SCH ×3 (07:22→22:04)
[2019-01-17 07:56] VITALS: BP 87/53; PULSE 90; RESP 18
[2019-01-17] MEDS: SOD CHLORIDE 0.9% 1,000 ML IV SCH (10:36)
--- NOTE | 2019-01-17 13:42 | PN ---
"Date/Time of Note Date/Time of Note DATE: 01/17/19 TIME: 13:39 Assessment/Plan Lines/Catheters IV [facility] Type (from [facility] Peripheral IV Potter in Place (from Nrs): No Assessment/Plan Chief Complaint/Hosp Course 1. Left gluteal abscess: Status post I&D 01/08/2019; I&D of left buttock 01/16/19 -local care w cecile -IV antibiotics per sensi's -Pain management 2. Leukocytosis:improved -As above -Trend 3.Hyperkalemia: -Optimize electrolytes 4. Elevated ALT and alkaline phosphatase: Improving -Trend -Further work-up if persistent 5. Normocytic normochromic anemia: -Monitor and transfuse as needed 6. Asthma history: -Med management 7. Illicit drug use: -Highly encourage cessation Thank you. Patient seen and examined in collaboration with Dr. He Canales. Subjective 24 Hr Interval Summary Feels better. Continues to have left buttock discomfort however much improved. Copious drainage from left buttock area. No fevers, chills, sob, congested cough, cp, palpitations, ashley, dizziness, nausea, vomiting, diarrhea, dysuria. Exam/Review of Systems Vital Signs Vitals Vital Signs Date Temp Pulse Resp B/P (MAP) Pulse Ox O2 O2 Flow FiO2 Time Delivery Rate 01/17/19 98.0 90 18 87/53 (64) 99 07:56 01/15/19 Room Air 20:53 Intake and Output 01/16/19 01/16/19 01/17/19 1414:59 22:59 06:59 IntakeIntake Total 350 ml 1520 ml 500 ml OutputOutput Total 800 ml 600 ml BalanceBalance 350 ml 720 ml -100 ml Exam Free Text/Dictation Constitutional: alert, oriented Psych: nl mood/affect, anxiety Head: normocephalic, atraumatic Eyes: nl conjunctiva, EOMI, nl lids, nl sclera ENMT: nl external ears & nose, nl lips & teeth, nl nasal mucosa & septum, mucosa pink and moist Neck: supple, non-tender Respiratory: normal air movement; No congested cough Cardiovascular: regular rate and rhythm, nl pulses Gastrointestinal: soft, non-tender Musculoskeletal: nl extremities to inspection, nl gait and stance Extremities: normal pulses Neurological: nl mental status, nl speech, nl strength Skin: nl turgor, other (Left buttock: Packed, much improved edema, no overt bleeding| left hip: Open wounds: Min drainage) Results Result Diagram: 01/16/19 0552 01/16/19 0552 OBEY RUSS NP Jan 17, 2019 13:42"
[2019-01-17 14:40] VITALS: BP 110/57; PULSE 96; RESP 16
[2019-01-17] MEDS: DAKINS 0.0125%(1/40) 473 ML SOLUTION TP SCH (15:56)
[2019-01-17] MEDS: HYDROCODONE/APAP (5/325) TAB PO PRN (15:56)
[2019-01-17 20:00] VITALS: BP 105/63; PULSE 95; RESP 19
[2019-01-18] MEDS: PIPER-TAZO 3.375 GM IV (PMX) 100 ML IVPB SCH ×4 (00:18→18:14)
[2019-01-18] MEDS: SOD CHLORIDE 0.9% 1,000 ML IV SCH ×2 (00:18→15:12)
[2019-01-18 02:00] VITALS: BP 106/63; PULSE 99; RESP 19
--- NOTE | 2019-01-18 04:04 | PN ---
Date/Time of Note Date/Time of Note DATE: 01/18/19 TIME: 03:50 Assessment/Plan VTE Prophylaxis Risk score (from Ns)>0 risk: 1 SCD applied (from Ns): Yes Pharmacological prophylaxis: NA/contraindicated Pharm contraindication: low risk/ambulating Lines/Catheters [facility] ([facility] Peripheral IV Urinary Cath still in place: No Assessment/Plan Hospital Course S: no new complaints , pain is fairly well controlled on current regimen Objective : General: A&O x3, answering questions appropriately HEENT: NC/ AT. PERRL. EOM intact Neck: supple CVS: S1, S2, RRR. no murmurs. no pain on chest wall palpation Lungs: CTA b/l. no wheezing or rhonchi Abd: soft, nontender, +BS Ext: moving all extremities skin: no rashes back : L buttock with multiple injection cadena and incision from abscess drainage covered with packing and dressing, with surrounding cellulitis Assessment and PLan: 1. Left gluteal abscess: -Status post I&D 01/08/2019,Repeat I&D of left buttock 01/16/19 -f/u intraop cultures, continue IV antibiotics -Pain management 2. Leukocytosis: -As above -Trend 3.Hyperkalemia: -f/u repeat labs 4. Elevated ALT and alkaline phosphatase: Improving -Trend -Hepatitis profile -possible mild hepatic injury from dug use 5. Normocytic normochromic anemia: -Monitor and transfuse as needed 6. Asthma history: -Med management 7. Illicit drug use: -Cessation counselling done and re-iforced daily 8. Homeless: -Patient can go to recuperative care once cultures are available and may be able to transition to friends/ family from there Further interventions per clinical course . Result Diagram: 01/17/19 1434 01/16/19 0552 Results 24hrs Laboratory Tests Test 01/17/19 04:39 01/17/19 14:34 Vancomycin Level Trough 10.6 White Blood Count 8.1 # Red Blood Count 3.19 L Hemoglobin 9.6 L Hematocrit 29.6 L Mean Corpuscular Volume 92.8 Mean Corpuscular Hemoglobin 30.1 Mean Corpuscular Hemoglobin Concent 32.4 Red Cell Distribution Width 12.7 Platelet Count 406 Mean Platelet Volume 8.3 Immature Granulocytes % 0.700 H Neutrophils % 64.6 Lymphocytes % 24.1 Monocytes % 7.9 Eosinophils % 2.2 Basophils % 0.5 Nucleated Red Blood Cells % 0.0 Immature Granulocytes # 0.060 H Neutrophils # 5.2 Lymphocytes # 2.0 Monocytes # 0.6 Eosinophils # 0.2 Basophils # 0.0 Nucleated Red Blood Cells # 0.0 Exam/Review of Systems Exam Vitals Vital Signs Date Temp Pulse Resp B/P (MAP) Pulse Ox O2 O2 Flow FiO2 Time Delivery Rate 01/17/19 98.3 95 19 105/63 100 20:00 (77) 01/15/19 Room Air 20:53 Intake and Output 01/17/19 01/17/19 01/18/19 1515:00 23:00 07:00 IntakeIntake Total 1190 ml 1850 ml 750 ml OutputOutput Total 1000 ml BalanceBalance 1190 ml 850 ml 750 ml Results Results 24hrs Laboratory Tests Test 01/17/19 04:39 01/17/19 14:34 Vancomycin Level Trough 10.6 White Blood Count 8.1 # Red Blood Count 3.19 L Hemoglobin 9.6 L Hematocrit 29.6 L Mean Corpuscular Volume 92.8 Mean Corpuscular Hemoglobin 30.1 Mean Corpuscular Hemoglobin Concent 32.4 Red Cell Distribution Width 12.7 Platelet Count 406 Mean Platelet Volume 8.3 Immature Granulocytes % 0.700 H Neutrophils % 64.6 Lymphocytes % 24.1 Monocytes % 7.9 Eosinophils % 2.2 Basophils % 0.5 Nucleated Red Blood Cells % 0.0 Immature Granulocytes # 0.060 H Neutrophils # 5.2 Lymphocytes # 2.0 Monocytes # 0.6 Eosinophils # 0.2 Basophils # 0.0 Nucleated Red Blood Cells # 0.0 Medications Medication Current Medications IV Flush (NS 3 ml) 3 ml PER PROTOCOL IV ; Start 01/15/19 at 20:30 Ondansetron HCl (Zofran Inj) 4 mg Q6H PRN IV NAUSEA/VOMITING; Start 01/15/19 at 20:30 Acetaminophen (Tylenol Tab) 650 mg Q6H PRN PO .PAIN 1-3 OR TEMP; Start 01/15/19 at 20:30 Acetaminophen/ Hydrocodone Bitart ([place] (5/325)) 1 tab Q6H PRN PO .MOD PAIN 4- 6 Last administered on 01/17/19at 15:56; Admin Dose 1 TAB; Start 01/15/19 at 20:30 Morphine Sulfate (morphine) 2 mg Q4H PRN IV .SEVERE PAIN 7-10 Last administered on 01/16/19at 22:59; Admin Dose 2 MG; Start 01/15/19 at 20:30 Docusate Sodium (Colace) 100 mg Q12H PRN PO .CONSTIPATION; Start 01/15/19 at 20:30 Bisacodyl (Dulcolax) 5 mg DAILY PRN PO .CONSTIPATION; Start 01/15/19 at 20:30 Vancomycin HCl (Vanco Iv Per Pharmacy) VANCOMYCIN PER PHARMACY PER PROTOCOL XX ; Start 01/15/19 at 20:30 Piperacillin Sod/ Tazobactam Sod 100 ml @ 200 mls/hr Q6 IVPB Last administered on 01/18/19at 00:18; Admin Dose 200 MLS/HR; Start 01/16/19 at 00:00 Vancomycin HCl 250 ml @ 125 mls/hr Q8H IVPB Last administered on 01/17/19at 22: 04; Admin Dose 125 MLS/HR; Start 01/16/19 at 05:00 Sodium Chloride 1,000 ml @ 70 mls/hr [id number] IV Last administered on 01/18/19 00:18; Admin Dose 70 MLS/HR; Start 01/16/19 at 06:00 Sodium Hypochlorite ([place]ak[place] Diluted (40)) 1 applic DAILY TP Last administered on 01/17/19at 15:56; Admin Dose 1 APPLIC; Start 01/17/19 at 14:00 KARLA RAYMOND Jan 18, 2019 04:00
[2019-01-18] MEDS: VANCOMYCIN 1 GM 250 ML IVPB SCH ×3 (06:55→21:51)
[2019-01-18 08:55] VITALS: BP 102/60; PULSE 87; RESP 18
[2019-01-18] MEDS: DAKINS 0.0125%(1/40) 473 ML SOLUTION TP SCH (09:00)
--- NOTE | 2019-01-18 13:38 | PN ---
"Date/Time of Note Date/Time of Note DATE: 01/18/19 TIME: 13:35 Assessment/Plan Lines/Catheters IV Catheter Type (from Nrs): Peripheral IV Potter in Place (from Nrs): No Assessment/Plan Chief Complaint/Hosp Course 1. Left gluteal abscess: Status post I&D 01/08/2019; I&D of left buttock 01/16/19 -local care w dakins> had lengthy discussion with patient regarding importance of wound packing -antibiotics per sensi's -Pain management -DC okay from surgical standpoint with wound care 2. Leukocytosis: Resolved -As above -Trend 3.Hyperkalemia: -Optimize electrolytes 4. Elevated ALT and alkaline phosphatase: Improving; hepatitis panel negative thus far -Trend -Further work-up if persistent 5. Normocytic normochromic anemia: -Monitor and transfuse as needed 6. Asthma history: -Med management 7. Illicit drug use: -Highly encourage cessation Thank you. Patient seen and examined in collaboration with Dr. He Canales. Subjective 24 Hr Interval Summary Refusing wound care intermittently. Had lengthy discussion with patient regarding importance of packing the wound. Left buttock pain improved. No fevers, chills, sob, congested cough, cp, palpitations, ashley, dizziness, nausea, vomiting, diarrhea, dysuria. Exam/Review of Systems Vital Signs Vitals Vital Signs Date Temp Pulse Resp B/P (MAP) Pulse Ox O2 O2 Flow FiO2 Time Delivery Rate 01/18/19 97.9 87 18 102/60 100 08:55 (74) 01/15/19 Room Air 20:53 Intake and Output 01/17/19 01/17/19 01/18/19 1414:59 22:59 06:59 IntakeIntake Total 1190 ml 1850 ml 1900 ml OutputOutput Total 1000 ml 1100 ml BalanceBalance 1190 ml 850 ml 800 ml Exam Free Text/Dictation Constitutional: alert, oriented Psych: nl mood/affect, anxiety Head: normocephalic, atraumatic Eyes: nl conjunctiva, EOMI, nl lids, nl sclera ENMT: nl external ears & nose, nl lips & teeth, nl nasal mucosa & septum, mucosa pink and moist Neck: supple, non-tender Respiratory: normal air movement; No congested cough Cardiovascular: regular rate and rhythm, nl pulses Gastrointestinal: soft, non-tender Musculoskeletal: nl extremities to inspection, nl gait and stance Extremities: normal pulses Neurological: nl mental status, nl speech, nl strength Skin: nl turgor, other (Left buttock: Packed, much improved edema, no overt bleeding| left hip: Open wounds: Min drainage) Results Result Diagram: 01/18/19 0708 01/18/19 0708 OBEY RUSS NP Jan 18, 2019 13:38"
[2019-01-18 14:55] VITALS: BP 101/51; PULSE 81; RESP 20
[2019-01-18] MEDS: HYDROCODONE/APAP (5/325) TAB PO PRN (16:13)
[2019-01-18] MEDS: morphine 2 MG INJ IV PRN (16:13)
--- NOTE | 2019-01-18 17:25 | CONS ---
DATE OF ADMISSION: 01/15/2019 DATE OF CONSULTATION: 01/18/2019 TYPE OF CONSULTATION: Infectious disease. REASON FOR CONSULTATION: Antibiotic management. HISTORY OF PRESENT ILLNESS: Chace Sabillon is a 38-year-old male heroin abuser, who comes in with i nfected left hip and is being seen for antibiotic management. The patient was admitted last week wit h a large volleyball size abscess on his left flank, which was drained by Dr. Matt. He also had an abscess on the left buttock, but he decided to leave against medical advice because of anxiety. He had incision and drainage of left gluteal abscess. Since discharge, he has continued to use heroin, although he does not injected to his left side. PAST PROBLEMS INCLUDE: 1. Heroin abuse. 2. Recent left gluteal abscess, status post OR incision and drainage last week. The patient also ashley d left hand surgery. OTHER MEDICAL PROBLEMS: Include anxiety and depression. He has been using heroin intermittently for the last 27 years. FAMILY HISTORY: Noncontributory. SOCIAL HISTORY: He quit alcohol 15 years ago. He is a current every day smoker and he uses heroin e ventually. ANCILLARY LABORATORY DATA: On admission, his white count was 20.8, H and H of 10.7 and 32.9, platele t count 446,000. BUN and creatinine 18/0.86, glucose of 75. The patient was started on vancomycin, Zosyn, and also for some reason ceftriaxone. HOSPITAL COURSE: The patient is being followed by hospitalist, Dr. Shabbir Canales, saw him on the and he did an incision and drainage of a large left gluteal abscess 8 x 8 cm local anesthetic inje ction with multiloculated. I believe it was done at the bedside. Finger dissection to break up, alt judith a multiloculations. Wound was irrigated with Betadine and saline and packed with Kerlix and Be tadine. Currently, status post incision and drainage of the left gluteal abscess. Leukocytosis is r esolved. PHYSICAL EXAMINATION: GENERAL: He is alert and oriented, in no acute distress. VITAL SIGNS: Stable. He is afebrile. SKIN: Without generalized rash. HEENT: Within normal limits. NECK: Supple. LYMPH NODES: None palpable. CHEST: Decreased breath sounds at the bases. HEART: Without murmur or gallop. ABDOMEN: Soft, nontender, without organosplenomegaly or masses. EXTREMITIES: Without cyanosis or clubbing. His left buttock is packed. There is less edema. No ov ert bleeding. Minimal drainage. The patient's white count today is 7.5 and he is currently on vancomycin and Zosyn. His blood cultur es so far negative. Wound cultures are preliminary, show 1+ epithelial cells, no organisms seen. We will continue him on his current regimen. I will dictate my findings to the hospitalist and to Dr. Shabbir Canales. Dictated By: TENNILLE JOE MD KIM/NTS Conf#: [id number] DID#: [id number] CC: SHABBIR CANALES MD; MARCO ANTONIO ERAZO MD;*[facility]*
--- NOTE | 2019-01-18 17:36 | CONS ---
Assessment/Plan Assessment/Plan Assessment/Plan (Daily) Left gluteal abscess He has been seen by infectious disease on IV antibiotic coverage Status post debridement by surgery IV heroin abuse multiple times daily for the last 26 years Status post incarceration secondary to the above Homelessness Actively smokes with a history of COPD Has history of multiple admissions to treatment programs History of heroin use last time months ago at that time he was taking up to 80 mg of methadone daily. Will restart methadone at 30 mg daily continue with his current morphine discontinue Kenyon consider rechecking HIV and hepatitis C panel. Consultation Date/Type/Reason Admit Date/Time Date/Time of Note DATE: 01/18/19 TIME: 17:32 Hx of Present Illness Chart reviewed patient examined. Patient was admitted to [facility] with a left gluteal abscess secondary to IM injections of heroin. Patient also has a methamphetamine addiction. He uses heroin multiple times daily since the age of 12. He has been incarcerated in the past and is been in multiple drug treatment programs which has failed. Denies any other illicit drug use he uses HHN's for history of COPD. But denies any other opioids, non- drinker but he does smoke. States that he is HIV negative and hepatitis C negative, he is also homeless. He has a family history of addictions with patient's father grandfather and sister. There is no history of suicide attempts and he does not feel he is actively withdrawing. Constitutional: no complaints, improved ENT: no complaints Respiratory: no complaints, other (COPD) Cardiovascular: no complaints Gastrointestinal: no complaints Musculoskeletal: no complaints Skin: other (Left gluteal abscess) Past Medical History Medical History: other (COPD) Home Meds Active Scripts Amoxicillin* (Amoxicillin*) 500 Mg Cap, 500 MG PO BID for 7 Days, CAP Prov:NAZIA,MARLEN C 10/05/17 Ibuprofen* (Motrin*) 600 Mg Tab, 600 MG PO Q6, #30 TAB Prov:NAZIA,MARLEN C 10/05/17 Medications Current Medications IV Flush (NS 3 ml) 3 ml PER PROTOCOL IV ; Start 01/15/19 at 20:30 Ondansetron HCl (Zofran Inj) 4 mg Q6H PRN IV NAUSEA/VOMITING; Start 01/15/19 at 20:30 Acetaminophen (Tylenol Tab) 650 mg Q6H PRN PO .PAIN 1-3 OR TEMP; Start 01/15/19 at 20:30 Acetaminophen/ Hydrocodone Bitart ([place] (5/325)) 1 tab Q6H PRN PO .MOD PAIN 4- 6 Last administered on 01/18/19 16:13; Admin Dose 1 TAB; Start 01/15/19 at 20:30 Morphine Sulfate (morphine) 2 mg Q4H PRN IV .SEVERE PAIN 7-10 Last administered on 01/18/19 16:13; Admin Dose 2 MG; Start 01/15/19 at 20:30 Docusate Sodium (Colace) 100 mg Q12H PRN PO .CONSTIPATION; Start 01/15/19 at 20:30 Bisacodyl (Dulcolax) 5 mg DAILY PRN PO .CONSTIPATION; Start 01/15/19 at 20:30 Vancomycin HCl (Vanco Iv Per Pharmacy) VANCOMYCIN PER PHARMACY PER PROTOCOL XX ; Start 01/15/19 at 20:30 Piperacillin Sod/ Tazobactam Sod 100 ml @ 200 mls/hr Q6 IVPB Last administered on 01/18/19at 12:16; Admin Dose 200 MLS/HR; Start 01/16/19 at 00:00 Vancomycin HCl 250 ml @ 125 mls/hr Q8H IVPB Last administered on 01/18/19 14:15; Admin Dose 125 MLS/HR; Start 01/16/19 at 05:00 Sodium Chloride 1,000 ml @ 70 mls/hr [id number] IV Last administered on 01/18/19at 00:18; Admin Dose 70 MLS/HR; Start 01/16/19 at 06:00 Sodium Hypochlorite (Dakins Diluted (40)) 1 applic DAILY TP Last administered on 01/17/19at 15:56; Admin Dose 1 APPLIC; Start 01/17/19 at 14:00 Miscellaneous Information (*Rx Drug Level Order Reminder*) VANCO TROUGH ON 01/06... 2100 ONCE XX ; Start 01/18/19 at 21:00; Stop 01/18/19 at 21:01 Allergies: Coded Allergies: No Known Drug Allergies (Verified Allergy, Unknown, 10/05/17) Past Surgical History Past Surgical Hx: other Social History Alcohol Use: sober Smoking Status: Current every day smoker Drug Use: heroin, other (Methamphetamine) Exam/Review of Systems Exam Vitals Vital Signs Date Temp Pulse Resp B/P (MAP) Pulse Ox O2 O2 Flow FiO2 Time Delivery Rate 01/18/19 98.3 81 20 101/51 98 14:55 (68) 01/15/19 Room Air 20:53 Intake and Output 01/17/19 01/17/19 01/18/19 1515:00 23:00 07:00 IntakeIntake Total 1190 ml 1850 ml 1900 ml OutputOutput Total 1000 ml 1100 ml BalanceBalance 1190 ml 850 ml 800 ml Constitutional: alert, oriented, well developed Psych: anxiety Eyes: nl conjunctiva, EOMI, nl lids, nl sclera, PERRL ENMT: nl external ears & nose, nl lips & teeth, nl nasal mucosa & septum Respiratory: clear to auscultation, normal air movement Neurological: RANCH HELPER II-XII intact, nl mental status, nl speech, nl strength Results Result Diagram: 01/18/19 0708 01/18/19 0708 Results 24hrs Laboratory Tests Test 01/18/19 07:08 White Blood Count 7.5 Red Blood Count 3.18 L Hemoglobin 9.5 L Hematocrit 29.6 L Mean Corpuscular Volume 93.1 Mean Corpuscular Hemoglobin 29.9 Mean Corpuscular Hemoglobin Concent 32.1 Red Cell Distribution Width 12.5 Platelet Count 463 H Mean Platelet Volume 8.1 Immature Granulocytes % 1.900 H Neutrophils % 68.6 Lymphocytes % 17.8 Monocytes % 9.3 Eosinophils % 1.9 Basophils % 0.5 Nucleated Red Blood Cells % 0.0 Immature Granulocytes # 0.140 H Neutrophils # 5.2 Lymphocytes # 1.3 Monocytes # 0.7 Eosinophils # 0.1 Basophils # 0.0 Nucleated Red Blood Cells # 0.0 Sodium Level 139 Potassium Level 4.3 Chloride Level 104 Carbon Dioxide Level 29 Anion Gap 6 Blood Urea Nitrogen 9 Creatinine 0.64 Est Glomerular Filtrat Rate mL/min > 60 Glucose Level 100 Calcium Level 8.5 Phosphorus Level 3.3 Magnesium Level 2.0 Total Bilirubin 0.2 Direct Bilirubin 0.00 Indirect Bilirubin 0.2 Aspartate Amino Transf (AST/SGOT) 18 Alanine Aminotransferase (ALT/SGPT) 60 Alkaline Phosphatase 118 Total Protein 6.0 L Albumin 2.8 L Globulin 3.20 Albumin/Globulin Ratio 0.87 Hepatitis B Surface Antigen NEGATIVE Hepatitis B Surface Antibody NEGATIVE Hepatitis B Core Total Antibody NEGATIVE Hepatitis C Antibody Pending Medications Medication Current Medications IV Flush (NS 3 ml) 3 ml PER PROTOCOL IV ; Start 01/15/19 at 20:30 Ondansetron HCl (Zofran Inj) 4 mg Q6H PRN IV NAUSEA/VOMITING; Start 01/15/19 at 20:30 Acetaminophen (Tylenol Tab) 650 mg Q6H PRN PO .PAIN 1-3 OR TEMP; Start 01/15/19 at 20:30 Acetaminophen/ Hydrocodone Bitart ([place] (5/325)) 1 tab Q6H PRN PO .MOD PAIN 4- 6 Last administered on 01/18/19 16:13; Admin Dose 1 TAB; Start 01/15/19 at 20:30 Morphine Sulfate (morphine) 2 mg Q4H PRN IV .SEVERE PAIN 7-10 Last administered on 01/18/19at 16:13; Admin Dose 2 MG; Start 01/15/19 at 20:30 Docusate Sodium (Colace) 100 mg Q12H PRN PO .CONSTIPATION; Start 01/15/19 at 20:30 Bisacodyl (Dulcolax) 5 mg DAILY PRN PO .CONSTIPATION; Start 01/15/19 at 20:30 Vancomycin HCl (Vanco Iv Per Pharmacy) VANCOMYCIN PER PHARMACY PER PROTOCOL XX ; Start 01/15/19 at 20:30 Piperacillin Sod/ Tazobactam Sod 100 ml @ 200 mls/hr Q6 IVPB Last administered on 01/18/19at 12:16; Admin Dose 200 MLS/HR; Start 01/16/19 at 00:00 Vancomycin HCl 250 ml @ 125 mls/hr Q8H IVPB Last administered on 01/18/19at 14:15; Admin Dose 125 MLS/HR; Start 01/16/19 at 05:00 Sodium Chloride 1,000 ml @ 70 mls/hr [id number] IV Last administered on 01/18/19at 00:18; Admin Dose 70 MLS/HR; Start 01/16/19 at 06:00 Sodium Hypochlorite (Dakins Diluted ()) 1 applic DAILY TP Last administered on 01/17/19at 15:56; Admin Dose 1 APPLIC; Start 01/17/19 at 14:00 Miscellaneous Information (*Rx Drug Level Order Reminder*) VANCO TROUGH ON 06/1... 2100 ONCE XX ; Start 01/18/19 at 21:00; Stop 01/18/19 at 21:01 FORTUNATO KRUGER Jan 18, 2019 17:36
--- NOTE | 2019-01-18 17:50 | PN ---
Date/Time of Note Date/Time of Note DATE: 01/18/19 TIME: 17:46 Assessment/Plan VTE Prophylaxis Risk score (from Ns)>0 risk: 1 SCD applied (from Ns): Yes SCD contraindicated: low risk/ambulating Pharmacological prophylaxis: LMWH Lines/Catheters IV Catheter Type (from Nrs): Peripheral IV Urinary Cath still in place: No Assessment/Plan Hospital Course A/P 1. Gluteal Abscess; sp debridement. finish antibiotics. f/u cultures 2. Groin fungal rash 3. Substance abuse; Heroin, unable to go to detox program until wound has healed. 4. Tobacco abuse 5. Failure to thrive, plan is to be discharged to recuperative care but will need extensive wound care. 6. Nonadherence 7. History of recent KAYLAN and infection of his hip. Left AMA S: rash/ uncomfortable O: vss PE No pallor adenopathy Regular no murmur gallop Clear Benign Groin rash note No peripheral edema Result Diagram: 01/18/19 0708 01/18/19 0708 Results 24hrs Laboratory Tests Test 01/18/19 07:08 White Blood Count 7.5 Red Blood Count 3.18 L Hemoglobin 9.5 L Hematocrit 29.6 L Mean Corpuscular Volume 93.1 Mean Corpuscular Hemoglobin 29.9 Mean Corpuscular Hemoglobin Concent 32.1 Red Cell Distribution Width 12.5 Platelet Count 463 H Mean Platelet Volume 8.1 Immature Granulocytes % 1.900 H Neutrophils % 68.6 Lymphocytes % 17.8 Monocytes % 9.3 Eosinophils % 1.9 Basophils % 0.5 Nucleated Red Blood Cells % 0.0 Immature Granulocytes # 0.140 H Neutrophils # 5.2 Lymphocytes # 1.3 Monocytes # 0.7 Eosinophils # 0.1 Basophils # 0.0 Nucleated Red Blood Cells # 0.0 Sodium Level 139 Potassium Level 4.3 Chloride Level 104 Carbon Dioxide Level 29 Anion Gap 6 Blood Urea Nitrogen 9 Creatinine 0.64 Est Glomerular Filtrat Rate mL/min > 60 Glucose Level 100 Calcium Level 8.5 Phosphorus Level 3.3 Magnesium Level 2.0 Total Bilirubin 0.2 Direct Bilirubin 0.00 Indirect Bilirubin 0.2 Aspartate Amino Transf (AST/SGOT) 18 Alanine Aminotransferase (ALT/SGPT) 60 Alkaline Phosphatase 118 Total Protein 6.0 L Albumin 2.8 L Globulin 3.20 Albumin/Globulin Ratio 0.87 Hepatitis B Surface Antigen NEGATIVE Hepatitis B Surface Antibody NEGATIVE Hepatitis B Core Total Antibody NEGATIVE Hepatitis C Antibody Pending Exam/Review of Systems Exam Vitals Vital Signs Date Temp Pulse Resp B/P (MAP) Pulse Ox O2 O2 Flow FiO2 Time Delivery Rate 01/18/19 98.3 81 20 101/51 98 14:55 (68) 01/15/19 Room Air 20:53 Intake and Output 01/17/19 01/17/19 01/18/19 1515:00 23:00 07:00 IntakeIntake Total 1190 ml 1850 ml 1900 ml OutputOutput Total 1000 ml 1100 ml BalanceBalance 1190 ml 850 ml 800 ml Results Results 24hrs Laboratory Tests Test 01/18/19 07:08 White Blood Count 7.5 Red Blood Count 3.18 L Hemoglobin 9.5 L Hematocrit 29.6 L Mean Corpuscular Volume 93.1 Mean Corpuscular Hemoglobin 29.9 Mean Corpuscular Hemoglobin Concent 32.1 Red Cell Distribution Width 12.5 Platelet Count 463 H Mean Platelet Volume 8.1 Immature Granulocytes % 1.900 H Neutrophils % 68.6 Lymphocytes % 17.8 Monocytes % 9.3 Eosinophils % 1.9 Basophils % 0.5 Nucleated Red Blood Cells % 0.0 Immature Granulocytes # 0.140 H Neutrophils # 5.2 Lymphocytes # 1.3 Monocytes # 0.7 Eosinophils # 0.1 Basophils # 0.0 Nucleated Red Blood Cells # 0.0 Sodium Level 139 Potassium Level 4.3 Chloride Level 104 Carbon Dioxide Level 29 Anion Gap 6 Blood Urea Nitrogen 9 Creatinine 0.64 Est Glomerular Filtrat Rate mL/min > 60 Glucose Level 100 Calcium Level 8.5 Phosphorus Level 3.3 Magnesium Level 2.0 Total Bilirubin 0.2 Direct Bilirubin 0.00 Indirect Bilirubin 0.2 Aspartate Amino Transf (AST/SGOT) 18 Alanine Aminotransferase (ALT/SGPT) 60 Alkaline Phosphatase 118 Total Protein 6.0 L Albumin 2.8 L Globulin 3.20 Albumin/Globulin Ratio 0.87 Hepatitis B Surface Antigen NEGATIVE Hepatitis B Surface Antibody NEGATIVE Hepatitis B Core Total Antibody NEGATIVE Hepatitis C Antibody Pending Medications Medication Current Medications IV Flush (NS 3 ml) 3 ml PER PROTOCOL IV ; Start 01/15/19 at 20:30 Ondansetron HCl (Zofran Inj) 4 mg Q6H PRN IV NAUSEA/VOMITING; Start 01/15/19 at 20:30 Acetaminophen (Tylenol Tab) 650 mg Q6H PRN PO .PAIN 1-3 OR TEMP; Start 01/15/19 at 20:30 Morphine Sulfate (morphine) 2 mg Q4H PRN IV .SEVERE PAIN 7-10 Last administered on 01/18/19at 16:13; Admin Dose 2 MG; Start 01/15/19 at 20:30 Docusate Sodium (Colace) 100 mg Q12H PRN PO .CONSTIPATION; Start 01/15/19 at 20:30 Bisacodyl (Dulcolax) 5 mg DAILY PRN PO .CONSTIPATION; Start 01/15/19 at 20:30 Vancomycin HCl (Vanco Iv Per Pharmacy) VANCOMYCIN PER PHARMACY PER PROTOCOL XX ; Start 01/15/19 at 20:30 Piperacillin Sod/ Tazobactam Sod 100 ml @ 200 mls/hr Q6 IVPB Last administered on 01/18/19at 12:16; Admin Dose 200 MLS/HR; Start 01/16/19 at 00:00 Vancomycin HCl 250 ml @ 125 mls/hr Q8H IVPB Last administered on 01/18/19at 14:15; Admin Dose 125 MLS/HR; Start 01/16/19 at 05:00 Sodium Chloride 1,000 ml @ 70 mls/hr [id number] IV Last administered on 01/18/19at 00:18; Admin Dose 70 MLS/HR; Start 01/16/19 at 06:00 Sodium Hypochlorite (Dakins Diluted (1/40)) 1 applic DAILY TP Last administered on 01/17/19at 15:56; Admin Dose 1 APPLIC; Start 01/17/19 at 14:00 Miscellaneous Information (*Rx Drug Level Order Reminder*) VANCO TROUGH ON 01/06... 2100 ONCE XX ; Start 01/18/19 at 21:00; Stop 01/18/19 at 21:01 Methadone HCl (Methadone Liq) 30 mg AM PO ; Start 01/19/19 at 09:00 DELLA ARCOS MD Jan 18, 2019 17:50
[2019-01-18 20:14] VITALS: BP 100/65; PULSE 111; RESP 18
[2019-01-18] MEDS ORDERED: morphine 2 MG INJ IV PRN (23:00)
[2019-01-18] MEDS ORDERED: LORAZEPAM 2 MG INJ IV PRN (23:00)
[2019-01-18] MEDS: MICONAZOLE 2% 30 GM CR TOP SCH ×2 (23:06→23:07)
[2019-01-19] MEDS: PIPER-TAZO 3.375 GM IV (PMX) 100 ML IVPB SCH ×3 (00:31→12:58)
[2019-01-19] MEDS: SOD CHLORIDE 0.9% 1,000 ML IV SCH (02:47)
[2019-01-19 02:49] VITALS: BP 98/54; PULSE 79; RESP 20
[2019-01-19] MEDS: VANCOMYCIN 1 GM 250 ML IVPB SCH (06:04)
[2019-01-19] MEDS: MICONAZOLE 2% 30 GM CR TOP SCH ×2 (08:50→20:10)
[2019-01-19 08:52] VITALS: BP 104/58; PULSE 70; RESP 16
[2019-01-19] MEDS: DAKINS 0.0125%(1/40) 473 ML SOLUTION TP SCH (09:00)
[2019-01-19] MEDS: METHADONE (1 MG/ML 5 ML PO UD SYG) PO SCH (09:18)
[2019-01-19] MEDS ORDERED: VANCOMYCIN 750 MG (PMX) 250 ML IVPB SCH (13:00)
--- NOTE | 2019-01-19 14:08 | PN ---
"Date/Time of Note Date/Time of Note DATE: 01/19/19 TIME: 14:07 Assessment/Plan Lines/Catheters IV Catheter Type (from Nrs): Peripheral IV Potter in Place (from Nrs): No Assessment/Plan Chief Complaint/Hosp Course 1. Left gluteal abscess: Status post I&D 01/08/2019; I&D of left buttock 01/16/19 -local care w dakins> had lengthy discussion with patient regarding importance of wound packing -antibiotics per sensi's -Pain management -DC okay from surgical standpoint with wound care 2. Leukocytosis: Resolved -As above -Trend 3.Hyperkalemia: -Optimize electrolytes 4. Elevated ALT and alkaline phosphatase: Improving; hepatitis panel negative thus far -Trend -Further work-up if persistent 5. Normocytic normochromic anemia: -Monitor and transfuse as needed 6. Asthma history: -Med management 7. Illicit drug use: -Highly encourage cessation Thank you. Patient seen and examined in collaboration with Dr. He Canales. Subjective 24 Hr Interval Summary Intermittently refusing wound packing. Once again explained importance of wound packing. Left buttock pain much improved. No fevers, chills, sob, congested cough, cp, palpitations, ashley, dizziness, nausea, vomiting, diarrhea, dysuria. Exam/Review of Systems Vital Signs Vitals Vital Signs Date Temp Pulse Resp B/P (MAP) Pulse Ox O2 O2 Flow FiO2 Time Delivery Rate 01/19/19 98.3 70 16 104/58 100 Room Air 08:52 (73) Intake and Output 01/18/19 01/18/19 01/19/19 1515:00 23:00 07:00 IntakeIntake Total 1070 ml 950 ml 1926 ml OutputOutput Total 900 ml BalanceBalance 1070 ml 950 ml 1026 ml Exam Free Text/Dictation Constitutional: alert, oriented Psych: nl mood/affect, anxiety Head: normocephalic, atraumatic Eyes: nl conjunctiva, EOMI, nl lids, nl sclera ENMT: nl external ears & nose, nl lips & teeth, nl nasal mucosa & septum, mucosa pink and moist Neck: supple, non-tender Respiratory: normal air movement; No congested cough Cardiovascular: regular rate and rhythm, nl pulses Gastrointestinal: soft, non-tender Musculoskeletal: nl extremities to inspection, nl gait and stance Extremities: normal pulses Neurological: nl mental status, nl speech, nl strength Skin: nl turgor, other (Left buttock: Packed, much improved edema, no overt bleeding| left hip: Open wounds: Min drainage) Results Result Diagram: 01/18/19 0708 01/18/19 0708 OBEY RUSS NP Jan 19, 2019 14:08"
--- NOTE | 2019-01-19 14:50 | CONS ---
Assessment/Plan Assessment/Plan Hospital Course (Demo Recall) Patient is alert feels good denies pain no fevers overnight he is on Vanco Zosyn. Previous wound culture grew oxacillin sensitive staph aureus. WBC 7.5 yesterday no labs today wound culture pending Physical examination well-developed middle-aged man in no distress head atraumatic normocephalic neck is supple chest rise symmetrical breath sounds clear heart S1-S2 abdomen soft bowel sounds present extremities without cyanosis Assessment: 1. Recurrent left gluteal abscess, status post I&D 2. Illicit drug use Plan: Change antibiotics to oral Bactrim Consultation Date/Type/Reason Admit Date/Time Jan 15, 2019 at 19:31 Initial Consult Date 01/16/19 Type of Consult ID Date/Time of Note DATE: 01/19/19 TIME: 14:50 Exam/Review of Systems Exam Vitals Vital Signs Date Temp Pulse Resp B/P (MAP) Pulse Ox O2 O2 Flow FiO2 Time Delivery Rate 01/19/19 98.3 70 16 104/58 100 Room Air 08:52 (73) Intake and Output 01/18/19 01/18/19 01/19/19 1515:00 23:00 07:00 IntakeIntake Total 1070 ml 950 ml 1926 ml OutputOutput Total 900 ml BalanceBalance 1070 ml 950 ml 1026 ml Results Result Diagram: 01/18/19 0708 01/18/19 0708 Results 24hrs Laboratory Tests Test 01/18/19 20:57 Vancomycin Level Trough 17.2 Medications Medication Current Medications IV Flush (NS 3 ml) 3 ml PER PROTOCOL IV ; Start 01/15/19 at 20:30 Ondansetron HCl (Zofran Inj) 4 mg Q6H PRN IV NAUSEA/VOMITING; Start 01/15/19 at 20:30 Acetaminophen (Tylenol Tab) 650 mg Q6H PRN PO .PAIN 1-3 OR TEMP; Start 01/15/19 at 20:30 Morphine Sulfate (morphine) 2 mg Q4H PRN IV .SEVERE PAIN 7-10 Last administered on 01/18/19at 16:13; Admin Dose 2 MG; Start 01/15/19 at 20:30; Status Hold Docusate Sodium (Colace) 100 mg Q12H PRN PO .CONSTIPATION; Start 01/15/19 at 20:30 Bisacodyl (Dulcolax) 5 mg DAILY PRN PO .CONSTIPATION; Start 01/15/19 at 20:30 Vancomycin HCl (Vanco Iv Per Pharmacy) VANCOMYCIN PER PHARMACY PER PROTOCOL XX ; Start 01/15/19 at 20:30 Piperacillin Sod/ Tazobactam Sod 100 ml @ 200 mls/hr Q6 IVPB Last administered on 01/19/19at 12:58; Admin Dose 200 MLS/HR; Start 01/16/19 at 00:00 Sodium Hypochlorite (Dakins Diluted ()) 1 applic DAILY TP Last administered on 01/17/19at 15:56; Admin Dose 1 APPLIC; Start 01/17/19 at 14:00 Methadone HCl (Methadone Liq) 30 mg AM PO Last administered on 01/19/19at 09:18; Admin Dose 30 MG; Start 01/19/19 at 09:00 Miconazole Nitrate (Miconazole 2% Cr) 1 applic BID TOP Last administered on 01/19/19at 08:50; Admin Dose 1 APPLIC; Start 01/18/19 at 19:30; Stop 02/01/19 at 23:00 Lorazepam (Ativan) 1 mg Q4H PRN IV AGITATION/ANXIETY; Start 01/18/19 at 23:00 Morphine Sulfate (morphine) 1 mg Q6H PRN IV SEVERE PAIN LEVEL 7-10 Last administered on 01/18/19at 23:07; Admin Dose 1 MG; Start 01/18/19 at 23:00 Vancomycin/Sodium Chloride 250 ml @ 125 mls/hr Q8H IVPB Last administered on 01/19/19at 13:43; Admin Dose 125 MLS/HR; Start 01/19/19 at 13:00 Miscellaneous Information (*Rx Drug Level Order Reminder*) VANCO TROUGH @ 1,200 1200 ONCE XX ; Start 01/20/19 at 12:00; Stop 01/20/19 at 12:01 CARLOS GALINDO NP Jan 19, 2019 14:50
[2019-01-19 15:17] VITALS: BP 94/46; PULSE 70; RESP 18
[2019-01-19 20:00] VITALS: BP 100/55; PULSE 94; RESP 20
[2019-01-19] MEDS: TRIMETHOPRIM/SULFAMETHOX (DS) TAB PO SCH (20:09)
[2019-01-20 02:26] VITALS: BP 131/63; PULSE 89; RESP 20
[2019-01-20 08:36] VITALS: BP 113/57; PULSE 78; RESP 20
[2019-01-20] MEDS: METHADONE (1 MG/ML 5 ML PO UD SYG) PO SCH (09:10)
[2019-01-20] MEDS: TRIMETHOPRIM/SULFAMETHOX (DS) TAB PO SCH (09:11)
[2019-01-20] MEDS: DAKINS 0.0125%(1/40) 473 ML SOLUTION TP SCH (11:31)
[2019-01-20] MEDS: MICONAZOLE 2% 30 GM CR TOP SCH (11:32)
--- NOTE | 2019-01-20 12:04 | PN ---
Date/Time of Note Date/Time of Note DATE: 01/20/19 TIME: 12:02 Assessment/Plan VTE Prophylaxis Risk score (from Ns)>0 risk: 2 SCD applied (from [facility]): Yes SCD contraindicated: low risk/ambulating Pharmacological prophylaxis: heparin Pharm contraindication: low risk/ambulating Lines/Catheters IV C[facility]ter Type [facility]from [facility] Saline Lock Urinary Cath still in place: No Assessment/Plan Problems: (1) Abscess, gluteal, left Status: Acute Comment: Patient as expected declines recuperative care due to the distances involved. He reports he will be taking care of himself and getting his supplies from the [employer] store. Is not got direct contact for the methadone clinic right now. As such I am not certain that we have a safe discharge in place. Plan for discharge tomorrow (2) Heroin abuse Status: Acute Comment: Continue with methadone maintenance, strongly counseled about cessation (3) Anemia Comment: Work-up. Result Diagram: 01/20/19 0710 01/19/19 1559 Results 24hrs Laboratory Tests Test 01/19/19 15:59 01/20/19 07:10 White Blood Count 8.3 8.5 Red Blood Count 2.85 L 3.51 #L Hemoglobin 8.6 L 10.5 #L Hematocrit 27.0 L 32.7 #L Mean Corpuscular Volume 94.7 93.2 Mean Corpuscular Hemoglobin 30.2 29.9 Mean Corpuscular Hemoglobin Concent 31.9 L 32.1 Red Cell Distribution Width 13.1 12.9 Platelet Count 560 #H 491 H Mean Platelet Volume 8.2 7.9 Immature Granulocytes % 1.400 H 1.300 H Neutrophils % 58.0 60.0 Lymphocytes % 25.8 23.3 Monocytes % 11.2 H 12.3 H Eosinophils % 3.0 2.5 Basophils % 0.6 0.6 Nucleated Red Blood Cells % 0.0 0.0 Immature Granulocytes # 0.120 H 0.110 H Neutrophils # 4.8 5.1 Lymphocytes # 2.2 2.0 Monocytes # 0.9 1.1 H Eosinophils # 0.3 0.2 Basophils # 0.1 0.1 Nucleated Red Blood Cells # 0.0 0.0 Sodium Level 139 Potassium Level 4.3 Chloride Level 104 Carbon Dioxide Level 32 H Anion Gap 3 L Blood Urea Nitrogen 12 Creatinine 0.88 Est Glomerular Filtrat Rate mL/min > 60 Glucose Level 91 Calcium Level 8.6 Total Bilirubin 0.2 Direct Bilirubin 0.00 Indirect Bilirubin 0.2 Aspartate Amino Transf (AST/SGOT) 26 Alanine Aminotransferase (ALT/SGPT) 54 Alkaline Phosphatase 98 Total Protein 6.4 Albumin 2.9 L Globulin 3.50 H Albumin/Globulin Ratio 0.82 Subjective 24 Hr Interval Summary Free Text/Dictation Patient reports he is doing well. He however does not have arrangements made for his methadone clinic. He declines recuperative care to the distances involved Constitutional: no complaints (No fevers chills or sweats) Respiratory: no complaints Cardiovascular: no complaints Gastrointestinal: no complaints Exam/Review of Systems Exam Vitals Vital Signs Date Temp Pulse Resp B/P (MAP) Pulse Ox O2 O2 Flow FiO2 Time Delivery Rate 01/20/19 98.6 78 20 113/57 100 Room Air 08:36 (75) Intake and Output 01/19/19 01/19/19 01/20/19 1515:00 23:00 07:00 IntakeIntake Total 1290 ml 250 ml 450 ml OutputOutput Total 900 ml BalanceBalance 1290 ml 250 ml -450 ml Constitutional: alert, oriented Neck: supple, non-tender Respiratory: clear to auscultation, normal air movement Cardiovascular: regular rate and rhythm, nl pulses Results Results 24hrs Laboratory Tests Test 01/19/19 15:59 01/20/19 07:10 White Blood Count 8.3 8.5 Red Blood Count 2.85 L 3.51 #L Hemoglobin 8.6 L 10.5 #L Hematocrit 27.0 L 32.7 #L Mean Corpuscular Volume 94.7 93.2 Mean Corpuscular Hemoglobin 30.2 29.9 Mean Corpuscular Hemoglobin Concent 31.9 L 32.1 Red Cell Distribution Width 13.1 12.9 Platelet Count 560 #H 491 H Mean Platelet Volume 8.2 7.9 Immature Granulocytes % 1.400 H 1.300 H Neutrophils % 58.0 60.0 Lymphocytes % 25.8 23.3 Monocytes % 11.2 H 12.3 H Eosinophils % 3.0 2.5 Basophils % 0.6 0.6 Nucleated Red Blood Cells % 0.0 0.0 Immature Granulocytes # 0.120 H 0.110 H Neutrophils # 4.8 5.1 Lymphocytes # 2.2 2.0 Monocytes # 0.9 1.1 H Eosinophils # 0.3 0.2 Basophils # 0.1 0.1 Nucleated Red Blood Cells # 0.0 0.0 Sodium Level 139 Potassium Level 4.3 Chloride Level 104 Carbon Dioxide Level 32 H Anion Gap 3 L Blood Urea Nitrogen 12 Creatinine 0.88 Est Glomerular Filtrat Rate mL/min > 60 Glucose Level 91 Calcium Level 8.6 Total Bilirubin 0.2 Direct Bilirubin 0.00 Indirect Bilirubin 0.2 Aspartate Amino Transf (AST/SGOT) 26 Alanine Aminotransferase (ALT/SGPT) 54 Alkaline Phosphatase 98 Total Protein 6.4 Albumin 2.9 L Globulin 3.50 H Albumin/Globulin Ratio 0.82 Medications Medication Current Medications IV Flush (NS 3 ml) 3 ml PER PROTOCOL IV ; Start 01/15/19 at 20:30 Ondansetron HCl (Zofran Inj) 4 mg Q6H PRN IV NAUSEA/VOMITING; Start 01/15/19 at 20:30 Acetaminophen (Tylenol Tab) 650 mg Q6H PRN PO .PAIN 1-3 OR TEMP; Start 01/15/19 at 20:30 Morphine Sulfate (morphine) 2 mg Q4H PRN IV .SEVERE PAIN 7-10 Last administered on 01/18/19at 16:13; Admin Dose 2 MG; Start 01/15/19 at 20:30; Status Hold Docusate Sodium (Colace) 100 mg Q12H PRN PO .CONSTIPATION; Start 01/15/19 at 20:30 Bisacodyl (Dulcolax) 5 mg DAILY PRN PO .CONSTIPATION; Start 01/15/19 at 20:30 Sodium Hypochlorite (Dakins Diluted (1/40)) 1 applic DAILY TP Last administered on 01/20/19at 11:31; Admin Dose 1 APPLIC; Start 01/17/19 at 14:00 Methadone HCl (Methadone Liq) 30 mg AM PO Last administered on 01/20/19 09:10; Admin Dose 30 MG; Start 01/19/19 at 09:00 Miconazole Nitrate (Miconazole 2% Cr) 1 applic BID TOP Last administered on 01/20/19at 11:32; Admin Dose 1 APPLIC; Start 01/18/19 at 19:30; Stop 02/01/19 at 23:00 Lorazepam (Ativan) 1 mg Q4H PRN IV AGITATION/ANXIETY; Start 01/18/19 at 23:00 Morphine Sulfate (morphine) 1 mg Q6H PRN IV SEVERE PAIN LEVEL 7-10 Last administered on 01/18/19at 23:07; Admin Dose 1 MG; Start 01/18/19 at 23:00 Trimethoprim/ Sulfamethoxazole (Bactrim (Ds)) 1 tab BID PO Last administered on 01/20/19at 09:11; Admin Dose 1 TAB; Start 01/19/19 at 21:00 NEGRITO NI MD Jan 20, 2019 12:04
[2019-01-20 15:06] VITALS: BP 106/61; PULSE 82; RESP 18
--- NOTE | 2019-01-20 15:11 | PDOCDIS ---
Discharge Instructions DIAGNOSIS Discharge Diagnosis Gluteal abscess; chemical dependency; anemia CONDITION [id number] Patient Condition: [id number] Fair HOME CARE INSTRUCTIONS: [id number] Diet Instructions: [id number] Regular ACTIVITY: [id number] Activity Restrictions: [id number] Slowly Increase Activity FOLLOW UP/APPOINTMENTS Follow-up Plan Follow-up with general surgeon within 7 days; follow-up with methadone clinic as soon as possible; follow-up with primary care physician within 1 week NEGRITO NI MD Jan 20, 2019 15:11
[2019-01-20] MEDS ORDERED: SULF-182 PO (15:12)
--- NOTE | 2019-01-20 15:12 | CONS ---
Consultation Date/Type/Reason Admit Date/Time Jan 15, 2019 at 19:31 Initial Consult Date 01/16/19 Type of Consult SUBJECTIVE: Patient is awake, alert, resting in bed. No fevers. VS: stable T: 98.6 LABS: Reviewed. WBC- 8.5 Antibacterials: PO Bactrim DS MICROBIOLOGY: Previous wound culture grew oxacillin sensitive staph aureus. Physical Exam: GEN: well-developed middle-aged man in no distress HENT: head atraumatic normocephalic; neck is supple PULM: chest rise symmetrical breath sounds clear Heart: S1-S2 Abdomen: soft, bowel sounds present Extremities without cyanosis Assessment: 1. Recurrent left gluteal abscess, status post I&D 2. Illicit drug use Plan: Pt is clinically stable. Continue PO Bactrim and daily wound care. Date/Time of Note DATE: 01/20/19 TIME: 15:06 Exam/Review of Systems Exam Vitals Vital Signs Date Temp Pulse Resp B/P (MAP) Pulse Ox O2 O2 Flow FiO2 Time Delivery Rate 01/20/19 98.6 78 20 113/57 100 Room Air 08:36 (75) Intake and Output 01/19/19 01/19/19 01/20/19 1515:00 23:00 07:00 IntakeIntake Total 1290 ml 250 ml 450 ml OutputOutput Total 900 ml BalanceBalance 1290 ml 250 ml -450 ml Results Result Diagram: 01/20/19 0710 01/19/19 1559 Results 24hrs Laboratory Tests Test 01/19/19 15:59 01/20/19 07:07 01/20/19 07:10 White Blood Count 8.3 8.5 Red Blood Count 2.85 L 3.51 #L Hemoglobin 8.6 L 10.5 #L Hematocrit 27.0 L 32.7 #L Mean Corpuscular Volume 94.7 93.2 Mean Corpuscular Hemoglobin 30.2 29.9 Mean Corpuscular Hemoglobin Concent 31.9 L 32.1 Red Cell Distribution Width 13.1 12.9 Platelet Count 560 #H 491 H Mean Platelet Volume 8.2 7.9 Immature Granulocytes % 1.400 H 1.300 H Neutrophils % 58.0 60.0 Lymphocytes % 25.8 23.3 Monocytes % 11.2 H 12.3 H Eosinophils % 3.0 2.5 Basophils % 0.6 0.6 Nucleated Red Blood Cells % 0.0 0.0 Immature Granulocytes # 0.120 H 0.110 H Neutrophils # 4.8 5.1 Lymphocytes # 2.2 2.0 Monocytes # 0.9 1.1 H Eosinophils # 0.3 0.2 Basophils # 0.1 0.1 Nucleated Red Blood Cells # 0.0 0.0 Sodium Level 139 Potassium Level 4.3 Chloride Level 104 Carbon Dioxide Level 32 H Anion Gap 3 L Blood Urea Nitrogen 12 Creatinine 0.88 Est Glomerular Filtrat Rate mL/min > 60 Glucose Level 91 Calcium Level 8.6 Total Bilirubin 0.2 Direct Bilirubin 0.00 Indirect Bilirubin 0.2 Aspartate Amino Transf (AST/SGOT) 26 Alanine Aminotransferase (ALT/SGPT) 54 Alkaline Phosphatase 98 Total Protein 6.4 Albumin 2.9 L Globulin 3.50 H Albumin/Globulin Ratio 0.82 Iron Level 44 Total Iron Binding Capacity 222 L Percent Iron Saturation 20 L Ferritin 141.0 Medications Medication Current Medications IV Flush (NS 3 ml) 3 ml PER PROTOCOL IV ; Start 01/15/19 at 20:30 Ondansetron HCl (Zofran Inj) 4 mg Q6H PRN IV NAUSEA/VOMITING; Start 01/15/19 at 20:30 Acetaminophen (Tylenol Tab) 650 mg Q6H PRN PO .PAIN 1-3 OR TEMP; Start 01/15/19 at 20:30 Morphine Sulfate (morphine) 2 mg Q4H PRN IV .SEVERE PAIN 7-10 Last administered on 01/18/19at 16:13; Admin Dose 2 MG; Start 01/15/19 at 20:30; Status Hold Docusate Sodium (Colace) 100 mg Q12H PRN PO .CONSTIPATION; Start 01/15/19 at 20:30 Bisacodyl (Dulcolax) 5 mg DAILY PRN PO .CONSTIPATION; Start 01/15/19 at 20:30 Sodium Hypochlorite (Dakins Diluted ()) 1 applic DAILY TP Last administered on 01/20/19at 11:31; Admin Dose 1 APPLIC; Start 01/17/19 at 14:00 Methadone HCl (Methadone Liq) 30 mg AM PO Last administered on 01/20/19at 09:10; Admin Dose 30 MG; Start 01/19/19 at 09:00 Miconazole Nitrate (Miconazole 2% Cr) 1 applic BID TOP Last administered on 01/20/19at 11:32; Admin Dose 1 APPLIC; Start 01/18/19 at 19:30; Stop 02/01/19 at 23:00 Lorazepam (Ativan) 1 mg Q4H PRN IV AGITATION/ANXIETY; Start 01/18/19 at 23:00 Morphine Sulfate (morphine) 1 mg Q6H PRN IV SEVERE PAIN LEVEL 7-10 Last administered on 01/18/19at 23:07; Admin Dose 1 MG; Start 01/18/19 at 23:00 Trimethoprim/ Sulfamethoxazole (Bactrim (Ds)) 1 tab BID PO Last administered on 01/20/19at 09:11; Admin Dose 1 TAB; Start 01/19/19 at 21:00 JOSE GONSALES Jan 20, 2019 15:12
--- NOTE | 2019-01-20 15:16 | DS ---
Date/Time of Note Date/Time of Note DATE: 01/20/19 TIME: 15:13 Discharge Summary Admission/Discharge Info Admit Date/Time Jan 15, 2019 at 19:31 Discharge Date/Time January 20, 2019 Discharge Diagnosis Gluteal abscess; chemical dependency; anemia Patient Condition: Fair Consults General surgery-Dr. He Canales Procedures I&D of gluteal abscess Hx of Present Illness HPI This is a 38-year-old heroin drug abuser presenting with continued left buttock pain, redness, swelling. He states he left the hospital AGAINST MEDICAL ADVICE about a week ago shortly after OR incisional drainage of his left gluteal abscess. He states since discharge he has continued to use heroin although has not injected his left side. He denies fevers or chills, no chest pain or shortness of breath. Hx of Present Illness Chief complaint: Left buttock pain, swelling This is a 38-year-old heroin drug abuser presenting with continued left buttock pain, redness, swelling. She was admitted for left gluteal abscess which he had OR drainage for by Dr. Matt. Patient was also on antibiotics. He left the hospital AGAINST MEDICAL ADVICE. He states that over the last few days he has started noticing increased swelling of the left buttocks and tightness. He denies any fevers. He is currently not on any antibiotics. He denies any fevers or chills or nausea vomiting or diarrhea. He did report that he uses heroin but that he did not inject in the left gluteal area. He did have a wound culture during his previous admission that grew staph aureus. Hx of Present Illness Chace Sabillon is a 38-year-old man with past medical history of illicit drug use, who presents with left gluteal pain and swelling. Notably, he was admitted a few days ago for similar issues and underwent left gluteal abscess incision and drainage. He again returns with increased swelling to the left gluteal area. He denies injecting into the area however he does admit to injecting heroin intravenously in his arm. Laboratory findings significant for leukocytosis. Imaging of the left gluteal area shows heterogeneous collection in subcutaneous tissues measuring 7.8 x 3.7 x 8.4 cm. Additional symptoms include chills and left buttock pain. He denies fevers, chills, congested cough, additional trauma to the area, change in bowel or bladder habits, skin changes, seizure, rash. General surgery was asked to evaluate. 12 point review of systems was performed and is negative except as stated in HPI. Hospital Course 38-year-old male who is homeless and has chemical dependency using heroin. He developed a gluteal abscess which required incision and drainage. He has improved and is now stable for discharge. Please note his discharge was not done yesterday and is now being done today. We will try and get him over to the methadone clinic to get him set up and then he will be following up with his surgeon Dr. Canales. Home Meds Active Scripts Sulfamethoxazole/Trimethoprim (Sulfamethoxazole-Tmp Ds Tablet) 1 Each Tablet, 1 TAB PO BID for 7 Days, #14 TAB Prov:NEGRITO NI MD 01/20/19 Amoxicillin* (Amoxicillin*) 500 Mg Cap, 500 MG PO BID for 7 Days, CAP Prov:MARLEN MANDUJANO 10/05/17 Ibuprofen* (Motrin*) 600 Mg Tab, 600 MG PO Q6, #30 TAB Prov:MARLEN MANDUJANO 10/05/17 Follow-up Plan Follow-up with general surgeon, Dr. He Canales within 7 days; follow-up with methadone clinic as soon as possible; follow-up with primary care physician within 1 week Primary Care Provider Care Physician No Primary Time spent on discharge: > 30 minutes Pending Labs Laboratory Tests Test 01/19/19 15:59 01/20/19 07:07 01/20/19 07:10 White Blood Count 8.3 8.5 10^3/ul (4.8-10.8) 10^3/ul (4.8-10.8) Red Blood Count 2.85 3.51 10^6/ul (4.70-6.10) 10^6/ul (4.70-6.10 ) Hemoglobin 8.6 10.5 g/dl (14.0-18.0) g/dl (14.0-18.0) Hematocrit 27.0 % (42.0-52.0) 32.7 % (42.0-52.0) Mean Corpuscular 94.7 93.2 Volume fl (82.0-101.0) fl (82.0-101.0) Mean Corpuscular 30.2 pg (29.0-33.0) 29.9 Hemoglobin pg (29.0-33.0) Mean Corpuscular 31.9 32.1 Hemoglobin Concent g/dl (32.0-37.0) g/dl (32.0-37.0) Red Cell 13.1 % (11.5-14.5) 12.9 % (11.5-14.5) Distribution Width Platelet Count 560 491 10^3/UL (140-415) 10^3/UL (140-415) Mean Platelet 8.2 fl (7.4-10.4) 7.9 fl (7.4-10.4) Volume Immature 1.400 1.300 Granulocytes % % (0.001-0.429) % (0.001-0.429) Neutrophils % 58.0 % (39.0-77.0) 60.0 % (39.0-77.0) Lymphocytes % 25.8 % (15.0-51.0) 23.3 % (15.0-51.0) Monocytes % 11.2 % (0.0-11.0) 12.3 % (0.0-11.0) Eosinophils % 3.0 % (0.0-7.0) 2.5 % (0.0-7.0) Basophils % 0.6 % (0.0-2.0) 0.6 % (0.0-2.0) Nucleated Red Blood 0.0 0.0 Cells % /100WBC (0.0-0.0) /100WBC (0.0-0.0) Immature 0.120 0.110 Granulocytes # 10^3/ul (0.0-0.031) 10^3/ul (0.0-0.031 ) Neutrophils # 4.8 5.1 10^3/ul (1.6-7.5) 10^3/ul (1.6-7.5) Lymphocytes # 2.2 2.0 10^3/ul (0.8-2.9) 10^3/ul (0.8-2.9) Monocytes # 0.9 1.1 10^3/ul (0.3-0.9) 10^3/ul (0.3-0.9) Eosinophils # 0.3 0.2 10^3/ul (0.0-0.5) 10^3/ul (0.0-0.5) Basophils # 0.1 0.1 10^3/ul (0.0-0.1) 10^3/ul (0.0-0.1) Nucleated Red Blood 0.0 0.0 Cells # 10^3/ul (0.0-0.0) 10^3/ul (0.0-0.0) Sodium Level 139 mmol/L (135-144) Potassium Level 4.3 mmol/L (3.5-5.1) Chloride Level 104 mmol/L (97-110) Carbon Dioxide 32 mmol/L (21-31) Level Anion Gap 3 (5-13) Blood Urea 12 mg/dl (7-20) Nitrogen Creatinine 0.88 mg/dl (0.61-1.24) Est Glomerular > 60 mL/min (>60) Filtrat Rate mL/min Glucose Level 91 mg/dl (70-220) Calcium Level 8.6 mg/dl (8.4-10.2) Total Bilirubin 0.2 mg/dl (0.2-1.3) Direct Bilirubin 0.00 mg/dl (0.00-0.20) Indirect Bilirubin 0.2 mg/dl (0-1.1) Aspartate Amino 26 IU/L (15-46) Transf (AST/SGOT) Alanine 54 IU/L (13-69) Aminotransferase (A LT/SGPT) Alkaline 98 IU/L (42-121) Phosphatase Total Protein 6.4 g/dl (6.1-8.1) Albumin 2.9 g/dl (3.3-4.9) Globulin 3.50 g/dl (1.3-3.2) Albumin/Globulin 0.82 Ratio Iron Level 44 ug/dl (35-150) Total Iron Binding 222 Capacity ug/dl (241-421) Percent Iron 20 % SAT (22-52) Saturation Ferritin 141.0 ng/ml (17.9-464.0) NEGRITO NI MD Jan 20, 2019 15:16
== END 2019-01-20 17:16 | disposition home or self-care (01) | DRG 603 ==
LOC: E/R 16:11 → PP2 19:31 → EDBEDREQ 20:15
PROVIDERS: ADMIT Family Medicine; ATTEND Family Medicine
PROC: 0H98XZZ Drainage of Buttock Skin, External Approach (ICD-10-PCS; principal; 2019-01-16)
DX: L02.31 Cutaneous abscess of buttock (principal); F41.9 Anxiety disorder, unspecified; F32.9 Major depressive disorder, single episode, unspecified; F17.200 Nicotine dependence, unspecified, uncomplicated; J45.909 Unspecified asthma, uncomplicated; F11.90 Opioid use, unspecified, uncomplicated; D64.9 Anemia, unspecified; E87.5 Hyperkalemia; Z59.0 Homelessness
CPT/HCPCS: 36415; 76536; 80053; 80202; 82728; 83540; 83690; 83735; 84100; 85025; 85610; 85651; 85730; 86140; 86704; 86706; 86803; 87070; 87081; 87340; J0696; J1170; J2270; J2405; J2543; J3370; J7030

== ENCOUNTER 2019-01-24 12:52 | Emergency (ER) | payer OTHER ==
[~2019-01-24] VITALS: Ht 182.9 cm; Wt 70.0 kg
[~2019-01-24 12:52] MED LIST changes: -AMOX500C2 PO; +SULF-182 PO
[2019-01-24 13:05] VITALS: BP 136/70; PULSE 107; RESP 24; Ht 182.9 cm; Wt 70.0 kg
--- NOTE | 2019-01-24 13:52 | ERD ---
ER Documentation Chief Complaint Chief Complaint wound check ( left hip) HPI Patient is a 38-year-old male, heroin drug abuser, presents to the ER for a wound recheck. Patient is brought in by the [facility] division and his sister for his wound recheck. Patient was discharged from this facility on 01/20/19 after undergoing incision and drainage of his left gluteal abscess. Patient states he has not filled his antibiotics however he did spanish moss picker the prescription today. Patient denies any fevers or chills. Patient does report doing wound care with last dressing change earlier today. Patient states his last heroin use was at 8 AM today. Patient denies any chest pain, shortness of breath, nausea vomiting or LOC at this time. Patient denies any homicidal or suicidal ideations. ROS All systems reviewed and are negative except as per history of present illness. Medications Home Meds Active Scripts Sulfamethoxazole/Trimethoprim (Sulfamethoxazole-Tmp Ds Tablet) 1 Each Tablet, 1 TAB PO BID for 7 Days, #14 TAB Prov:NEGRITO NI MD 01/20/19 Ibuprofen* (Motrin*) 600 Mg Tab, 600 MG PO Q6, #30 TAB Prov:MARLEN MANDUJANO 10/05/17 Discontinued Scripts Amoxicillin* (Amoxicillin*) 500 Mg Cap, 500 MG PO BID for 7 Days, CAP Prov:MARLEN MANDUAJNO 10/05/17 Allergies Allergies: Coded Allergies: No Known Drug Allergies (Verified Allergy, Unknown, 10/05/17) PMhx/Soc History of Surgery: Yes Anesthesia Reaction: No Hx Neurological Disorder: No Hx Respiratory Disorders: Yes (Emphysema) Hx Cardiac Disorders: No Hx Psychiatric Problems: Yes (Depression, anxiety) Hx Miscellaneous Medical Probl: Yes (Screws on L hand) Hx Alcohol Use: Yes (Quit 15 years ago) Hx Substance Use: Yes (Current Heroin addiction, meth use) Hx Tobacco Use: Yes (Half Pack day) FmHx Family History: No diabetes Physical Exam Vitals Vital Signs Date Temp Pulse Resp B/P (MAP) Pulse Ox O2 O2 Flow FiO2 Time Delivery Rate 01/24/19 98.3 107 24 136/70 97 13:05 (92) Physical Exam GENERAL: Well-developed, well-nourished male. Appears in no acute distress. Speaking in full sentences. HEAD: Normocephalic, atraumatic. EYES: Pupils are equally reactive bilaterally. EOMs grossly intact. No conjunctival erythema. NECK: Supple. No meningismus. Normal range of motion of the neck. EXTREMITIES: Equal pulses bilaterally. No peripheral clubbing, cyanosis or edema. No unilateral leg swelling. NEUROLOGIC: Alert and oriented. Moving all four extremities without any difficulty. Normal speech. Steady gait. SKIN: 1 inch opening noted on the left gluteus, dry, no active bleeding or discharge. No deep structures visualized. No bony structures visualized. 1 cm opening noted above larger opening. Again this wound is dry, no active bleeding or discharge. No surrounding redness. No macerated skin. No streaking. No warmth. Results 24 hrs Current Medications Medications Dose Sig/Zion Start Time Status Last (Trade) Ordered Route PRN Stop Time Admin Dose Reason Admin Lorazepam 0.5 mg ONCE ONCE 01/24/19 DC (Ativan) PO 15:00 01/24/19 15:00 Procedures/MDM MEDICAL DECISION MAKING: This is a 38-year-old male, heroin drug user, who presents the ER for concerns of a wound recheck.. Vital signs were reviewed. Patient is afebrile. Patient was not hypoxic. Patient had no signs of acute respiratory distress. The wound appears to be healing well with no concerns of acute infection at this time. No wound drainage or wound dehiscence noted. Wound dressings were performed. Patient and his sister did express concerns for admitting patient to detox program. Patient requested to speak with psychotherapist social worker Levi, who was called from the floor. soda worker Daniel did provide patient and sister with detox program information. See his note. Patient had no homicidal or suicidal ideations. PRESCRIPTIONS: Continue to take antibiotics as prescribed. Complete full course. DISCHARGE: At this time, the patient is stable for discharge and outpatient management. Post-procedural wound care was discussed with the patient. I have instructed the patient to promptly return to the ER for any new or worsening symptoms including increasing pain, fever, warmth, redness or swelling. The patient and/or family expressed understanding of and agreement with this plan. All questions were answered. Home care instructions were provided. Disclaimer: Inadvertent spelling and grammatical errors are likely due to EHR/dictation software use and do not reflect on the overall quality of patient care. Also, please note that the electronic time recorded on this note does not necessarily reflect the actual time of the patient encounter. Departure Diagnosis: Primary Impression: Encounter for wound re-check Additional Impression: Heroin user Condition: Fair Patient Instructions: Wound Care Referrals: [facility] YOU HAVE RECEIVED A MEDICAL SCREENING EXAM AND THE RESULTS INDICATE THAT YOU DO NOT HAVE A CONDITION THAT REQUIRES URGENT TREATMENT IN THE EMERGENCY DEPARTMENT. FURTHER EVALUATION AND TREATMENT OF YOUR CONDITION CAN WAIT UNTIL YOU ARE SEEN IN YOUR DOCTORS OFFICE WITHIN THE NEXT 1-2 DAYS. IT IS YOUR RESPONSIBILITY TO MAKE AN APPOINTMENT FOR FOLOW-UP CARE. IF YOU HAVE A PRIMARY DOCTOR --you should call your primary doctor and schedule an appointment IF YOU DO NOT HAVE A PRIMARY DOCTOR YOU CAN CALL OUR PHYSICIAN REFERRAL HOTLINE AT IF YOU CAN NOT AFFORD TO SEE A PHYSICIAN YOU CAN CHOSE FROM THE FOLLOWING [facility] [address] [facility]. [facility] [address] [facility] [address] [facility] [address] [facility] [address] [facility]. [facility] [address] [facility]. [facility] YOU HAVE RECEIVED A MEDICAL SCREENING EXAM AND THE RESULTS INDICATE THAT YOU DO NOT HAVE A CONDITION THAT REQUIRES URGENT TREATMENT IN THE EMERGENCY DEPARTMENT. FURTHER EVALUATION AND TREATMENT OF YOUR CONDITION CAN WAIT UNTIL YOU ARE SEEN IN YOUR DOCTORS OFFICE WITHIN THE NEXT 1-2 DAYS. IT IS YOUR RESPONSIBILITY TO MAKE AN APPOINTMENT FOR FOLOW-UP CARE. IF YOU HAVE A PRIMARY DOCTOR --you should call your primary doctor and schedule and appointment IF YOU DO NOT HAVE A PRIMARY DOCTOR YOU CAN CALL OUR PHYSICIAN REFERRAL HOTLINE AT . IF YOU CAN NOT AFFORD TO SEE A PHYSICIAN YOU CAN CHOSE FROM THE FOLLOWING [facility] INSTITUTIONS: [facility] [id number] [place] [address] [facility] [address] [place] [address] [facility] [address] [place] [address] [facility]TIES Additional Instructions: Call your primary care doctor TOMORROW for an appointment during the next 1-2 days.See the doctor sooner or return here if your condition worsens before your appointment time. PILAR AGARWAL PA-C Jan 24, 2019 13:52
[2019-01-24] MEDS ORDERED: LORAZEPAM 0.5 MG TAB PO ONE (15:00)
== END 2019-01-24 14:44 | disposition home or self-care (01) ==
LOC: FTE 12:52
DX: F11.90 Opioid use, unspecified, uncomplicated (principal); F17.210 Nicotine dependence, cigarettes, uncomplicated
CPT/HCPCS: 99281